=== PATIENT | male | born 1970 | race Caucasian/White ===

== ENCOUNTER 2016-09-28 09:16 | Outpatient (CLI) | payer MEDICAID | END 2016-09-28 09:17 | disposition short-term general hospital (02) | LOC: EMS 09:16 | PROVIDERS: ATTEND Surgery | DX: R07.9 Chest pain, unspecified (principal) | CPT/HCPCS: A0425; A0427 ==

== ENCOUNTER 2016-10-19 09:28 | Outpatient (CLI) | payer MEDICAID | END 2016-10-19 09:29 | disposition critical access hospital (66) | LOC: EMS 09:28 | PROVIDERS: ATTEND Surgery | DX: R11.0 Nausea (principal); R42 Dizziness and giddiness | CPT/HCPCS: A0425; A0427 ==

== ENCOUNTER 2016-10-19 09:47 | Observation (INO) | payer MEDICAID ==
[2016-10-19] MEDS ORDERED: SODIUM CHLORIDE 0.9% 500 ML IV ONE ×2 (10:10→11:08)
[2016-10-19] MEDS ORDERED: HYDROmorphone 1 MG/ML SYRINGE IVP STA ×3 (10:10→13:22)
[2016-10-19] MEDS ORDERED: HYDROmorphone 1 MG/ML SYRINGE ONE ×2 (10:21→11:15)
[2016-10-19 10:43] LABS: BASOPHILS # (AUTO) 0.1 10^3/uL (0.0-0.1); BASOPHILS % (AUTO) 1.1 %; HCT - HEMATOCRIT 38.6 % (42.0-52.0); LYMPHOCYTES # (AUTO) 1.4 10^3/uL (1.5-3.5); LYMPHOCYTES % (AUTO) 24.2 %; MEAN CORPUSCULAR HEMOGLOBIN 32.3 pg (27.0-31.0); MEAN CORPUSCULAR HGB CONC 33.6 g/dL (32.0-36.0); MEAN CORPUSCULAR VOLUME 96.1 fL (80.0-94.0); MEAN PLATELET VOLUME 8.1 fL (7.4-11.4); MONOCYTES # (AUTO) 0.3 10^3/uL (0.0-1.0); MONOCYTES % (AUTO) 5.9 %; NEUTROPHILS # (AUTO) 3.9 10^3/uL (1.5-6.6); NEUTROPHILS % (AUTO) 68.8 %; NUCLEATED RED BLOOD CELLS AUTO 0.1 /100WBC; RED BLOOD COUNT 4.02 10^6/uL (4.70-6.10); RED CELL DISTRIBUTION WIDTH 15.3 % (12.0-15.0); UNCORRECTED WHITE BLOOD COUNT 5.7 x10^3/uL; WHITE BLOOD COUNT 5.7 x10^3/uL (4.8-10.8)
[2016-10-19 10:53] LABS: ALBUMIN/GLOBULIN RATIO 1.7 (1.0-2.2); BILIRUBIN,TOTAL 0.6 mg/dL (0.2-1.0); BUN - BLOOD UREA NITROGEN 10 mg/dL (6-20); CALCIUM 8.8 mg/dL (8.5-10.3); CARBON DIOXIDE - CO2 25 mmol/L (21-32); CHLORIDE 105 mmol/L (101-111); GFR - MDRD 82 (>89); GLUCOSE 125 mg/dL (70-100); LIPASE 38 U/L (22-51); MAGNESIUM 1.9 mg/dL (1.7-2.8); POTASSIUM 4.1 mmol/L (3.5-5.0); SODIUM 139 mmol/L (135-145); TOTAL PROTEIN 6.4 g/dL (6.7-8.2)
[2016-10-19 11:28] LABS: RAPID STREP SCREEN REAGENT QC YELLOW (YELLOW)
--- NOTE | 2016-10-19 11:33 | XRAY Preliminary Report ---
Exam: XR Chest 1 View IMPRESSION: Normal single view chest. [facility] SITE ID: [id number]
--- NOTE | 2016-10-19 11:35 | XRAY Report ---
EXAM: CHEST RADIOGRAPHY EXAM DATE: 10/19/2016 10:59 AM. CLINICAL HISTORY: Cough, weakness. COMPARISON: Chest radiography from 01/06/2015. TECHNIQUE: 1 view. FINDINGS: Lungs/Pleura: No focal opacities evident. No pleural effusion. No pneumothorax. Mediastinum: Within exam limitations, cardiomediastinal contour is normal. Other: None. IMPRESSION: Normal single view chest. [facility] Referring Provider Line: [phone] SITE ID: [id number]
--- NOTE | 2016-10-19 11:48 | ED Physician Documentation ---
PD HPI SYNCOPE - Stated complaint Stated Complaint: BODY ACHES - Chief complaint Chief Complaint: Cardiac - History obtained from History obtained from: Patient, EMS - History of Present Illness Timing - onset: Today (he awoke with feeling of general weakness, nausea, body aches, and has increased back pain over baseline (but ran out of his pain meds couple of days ago that he gets every 2 weeks - 30 tablets). Denies fevers. Has had sore throat for a week. Mild cough. 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 Christian, cardiology in [place]. Patient says his BP is typically 120 systolic. No recent change in med.) Recently seen: Not recently seen Review of Systems Constitutional: reports: Chills, Myalgias, Fatigue. denies: Fever Nose: denies: Rhinorrhea / runny nose, Congestion Throat: reports: Sore throat (for a week) Cardiac: denies: Chest pain / pressure, Palpitations, Pedal edema, Calf pain Respiratory: reports: Cough (mild) GI: reports: Nausea. denies: Abdominal Pain, Vomiting, Diarrhea : denies: Dysuria, Frequency Skin: denies: Rash, Lesions Neurologic: reports: Generalized weakness. denies: Focal weakness, Numbness, Near syncope PD PAST MEDICAL HISTORY - Past Medical History Cardiovascular: Hypertension, High cholesterol Respiratory: Asthma, Shortness of breath Neuro: Headache/migraine Endocrine/Autoimmune: None GI: None, Crohn's disease, Other : None HEENT: None, Other Psych: Depression, Anxiety, Post traumatic stress disorder, Other Musculoskeletal: Osteoarthritis, Fibromyalgia, Fatigue, Chronic back pain Derm: Eczema - Past Surgical History Past Surgical History: Yes General: Appendectomy HEENT: Cataracts - Present Medications Home Medications: Ambulatory Orders Medication Instructions Recorded Confirmed Omeprazole 40 mg PO DAILY 03/01/14 01/06/15 Venlafaxine ER [Effexor ER] 300 mg PO BID 03/01/14 01/06/15 Pregabalin [Lyrica] 225 mg PO BID 05/14/14 01/06/15 Rizatriptan Benzoate [Maxalt Cremator] 1 tab PO DAILY PRN 06/10/14 01/06/15 Sulfasalazine 1,500 mg PO TIDWM 06/10/14 01/06/15 Albuterol Sulfate [Proair Hfa] 2 puffs INH Q6HR 07/18/14 01/06/15 Propranolol [Inderal] 40 mg PO BID 10/01/14 01/06/15 Alprazolam [Xanax] 1 mg PO Q8HR #10 tablet 10/17/14 01/06/15 Orphenadrine Citrate 100 mg ORAL BID 10/25/14 01/06/15 Temazepam [Restoril] 30 mg ORAL QPM 10/25/14 01/06/15 Meclizine HCl 25 mg PO Q6H PRN #30 tablet 01/06/15 Oxycodone HCl/Acetaminophen 1 each PO TID #20 tablet 01/06/15 [Percocet 10-325 mg Tablet] Promethazine [Phenergan] 25 - 50 mg PO Q6H PRN #30 tab 01/06/15 - Allergies Allergies/Adverse Reactions: Allergies Allergy/AdvReac Type Severity Reaction Status Date / Time amitriptyline [Amitriptyline] Allergy Mild Anxiety Verified 12/19/14 23:22 codeine [Codeine] Allergy Mild Hives Verified 12/19/14 23:22 telmisartan [From Micardis] Allergy Mild Hives Verified 12/19/14 23:22 venom-honey bee Allergy Anaphylaxis Verified 12/19/14 23:22 [bee venom (honey bee)] lisinopril AdvReac Anxiety Verified 12/19/14 23:22 NSAIDS (Non-Steroidal AdvReac Emesis Verified 12/19/14 23:22 Anti-Inflamma tramadol HCl * [From Ultram] AdvReac Unknown Verified 12/19/14 23:22 Ghost peppers Allergy Anaphylaxis Uncoded 12/19/14 23:22 squash Allergy Anaphylaxis Uncoded 12/19/14 23:22 [email or web address] Allergy Anaphylaxis Uncoded 12/19/14 23:22 - Social History Does the pt smoke?: Yes Smoking Status: Smoker current status unk Does the pt drink ETOH?: Yes Does the pt have substance abuse?: No - Family History Family history: reports: Non contributory - Immunizations Immunizations are current?: Yes - POLST Patient has POLST: No PD ED PE NORMAL - Vitals Vital signs reviewed: Yes - General General: Alert and oriented X 3, No acute distress, Well developed/nourished - HEENT HEENT: Moist mucous membranes. No: Pharynx benign (mild redness posteriorly without exudate. ) - Neck Neck: Supple, no meningeal sign, No adenopathy - Cardiac Cardiac: RRR, No murmur - Respiratory Respiratory: Clear bilaterally - Abdomen Abdomen: Soft, Non tender, Other (obese) - Male Male : Deferred - Rectal Rectal: Deferred - Back Back: No CVA TTP - Derm Derm: Warm and dry. No: Normal color (slightly pale) - Extremities Extremities: No tenderness to palpate, Normal ROM s pain, No edema, No calf tenderness / cord - Neuro Neuro: Alert and oriented X 3, No motor deficit, Normal speech - Psych Psych: Normal mood, Normal affect Results - Vitals Vitals: Vital Signs - 24 hr 10/19/16 10/19/16 10/19/16 09:49 10:30 10:42 Temperature 36.4 C L Heart Rate 70 65 64 Respiratory 20 14 14 Rate Blood Pressure 90/62 72/43 L 79/47 L O2 Saturation 92 93 91 L 10/19/16 10/19/16 10/19/16 10:47 11:22 12:40 Temperature Heart Rate 62 59 L 57 L Respiratory 14 14 14 Rate Blood Pressure 80/48 L 88/49 L 99/72 O2 Saturation 95 95 95 10/19/16 10/19/16 13:07 13:38 Temperature Heart Rate 55 L 56 L Respiratory 14 10 L Rate Blood Pressure 74/46 L 92/45 L O2 Saturation 92 91 L Oxygen O2 Source Room air - Labs Labs: Laboratory Tests 10/19/16 10/19/16 10/19/16 10:29 10:29 10:29 WBC 5.7 RBC 4.02 L Hgb 13.0 L Hct 38.6 L MCV 96.1 H MCH 32.3 H MCHC 33.6 RDW 15.3 H Plt Count 176 MPV 8.1 Neut # 3.9 Lymph # 1.4 L [place] # 0.3 Eos # 0.0 Baso # 0.1 Absolute Nucleated RBC 0.00 Nucleated RBCs 0.1 ESR 7 Sodium 139 Potassium 4.1 Chloride 105 Carbon Dioxide 25 Anion Gap 9.0 BUN 10 Creatinine 1.0 Estimated GFR (MDRD) 82 L Glucose 125 H Lactic Acid Calcium 8.8 Magnesium 1.9 Total Bilirubin 0.6 AST 11 ALT < 10 L Alkaline Phosphatase 56 Troponin I B-Natriuretic Peptide Total Protein 6.4 L Albumin 4.0 Globulin 2.4 Albumin/Globulin Ratio 1.7 Lipase 38 Urine Color Urine Clarity Urine pH Ur Specific [place] Urine Protein Urine Glucose (UA) Urine Ketones Urine Occult Blood Urine Nitrite Urine Bilirubin Urine Urobilinogen Ur Leukocyte Esterase Ur Microscopic Review Urine Culture Comments Ethyl Alcohol < 5.0 Group A Strep Rapid 10/19/16 10/19/16 10/19/16 10:29 10:29 10:29 WBC RBC Hgb Hct MCV MCH MCHC RDW Plt Count MPV Neut # Lymph # [place] # Eos # Baso # Absolute Nucleated RBC Nucleated RBCs ESR Sodium Potassium Chloride Carbon Dioxide Anion Gap BUN Creatinine Estimated GFR (MDRD) Glucose Lactic Acid 1.9 Calcium Magnesium Total Bilirubin AST ALT Alkaline Phosphatase Troponin I < 0.04 B-Natriuretic Peptide 148 H Total Protein Albumin Globulin Albumin/Globulin Ratio Lipase Urine Color Urine Clarity Urine pH Ur Specific [place] Urine Protein Urine Glucose (UA) Urine Ketones Urine Occult Blood Urine Nitrite Urine Bilirubin Urine Urobilinogen Ur Leukocyte Esterase Ur Microscopic Review Urine Culture Comments Ethyl Alcohol Group A Strep Rapid 10/19/16 10/19/16 10/19/16 11:00 11:06 13:30 WBC RBC Hgb Hct MCV MCH MCHC RDW Plt Count MPV Neut # Lymph # [place] # Eos # Baso # Absolute Nucleated RBC Nucleated RBCs ESR Sodium Potassium Chloride Carbon Dioxide Anion Gap BUN Creatinine Estimated GFR (MDRD) Glucose Lactic Acid Calcium Magnesium Total Bilirubin AST ALT Alkaline Phosphatase Troponin I < 0.04 B-Natriuretic Peptide Total Protein Albumin Globulin Albumin/Globulin Ratio Lipase Urine Color YELLOW Urine Clarity CLEAR Urine pH 6.0 Ur Specific [place] 1.015 Urine Protein NEGATIVE Urine Glucose (UA) NEGATIVE Urine Ketones NEGATIVE Urine Occult Blood NEGATIVE Urine Nitrite NEGATIVE Urine Bilirubin NEGATIVE Urine Urobilinogen 0.2 (NORMAL) Ur Leukocyte Esterase NEGATIVE Ur Microscopic Review NOT INDICATED Urine Culture Comments NOT INDICATED Ethyl Alcohol Group A Strep Rapid Negative - Rads (name of study) chest Radiology: Prelim report reviewed, EMP read contemporaneously (no acute process ; no signs of failure) ECHO limited Radiology: Prelim report reviewed (hypertrophic cardiomyopathy, with hyperdynamic contraction and EF 75%. No effusion. No focal hypokinesis) PD MEDICAL DECISION MAKING - ED course Complexity details: re-evaluated patient (Has his chronic back pain and some myalgias for which he asked for some pain meds. BP is low at 90 systolic. He has symptoms c/w viral illness perhaps. BP staying about same with fluid bolus, which was gentle at first, due to concern of CHf, but giving more fluids once clearer was not in heart failure at this point. ), considered differential (He is not feeling well and has low BP. Will eval for sepsis, lytes, OK/ cardiogenic. He denies change in med dose re: BP meds. Given history of cardiomyopathy, consider worsening of heart function related to illness/viral/ etc. Can get ECHO to assess current function. ), d/w patient Departure - Departure Disposition: ED Place in Observation Clinical Impression: Generalized weakness, Flu-like symptoms Hypotension Qualifiers: Hypotension type: unspecified hypotension type Qualified Code(s): I95.9 - Hypotension, unspecified Chronic back pain Qualifiers: Back pain location: low back pain Back pain laterality: bilateral Sciatica presence: without sciatica Qualified Code(s): M54.5 - Low back pain Condition: Stable Record reviewed to determine appropriate education?: Yes
[2016-10-19 11:59] LABS: BILIRUBIN,URINE NEGATIVE (NEGATIVE); UA CHARGE (STRIP ONLY) YES; UR CULTURE IF IND NOT INDICATED
[2016-10-19] MEDS ORDERED: SODIUM CHLORIDE 0.9% 1,000 ML IV ONE ×2 (12:55→13:53)
[2016-10-19] MEDS ORDERED: TEMAZEPAM 15 MG CAPSULE PO PRN (16:56)
[2016-10-19] MEDS ORDERED: ACETAMINOPHEN 325 MG TABLET PO PRN (16:56)
[2016-10-19] MEDS ORDERED: SODIUM CHLORIDE FLUSH 0.9% 10 ML SYRINGE IVP PRN (16:56)
--- NOTE | 2016-10-19 17:24 | HISTORY & PHYSICAL EXAMINATION ---
Chief Complaint - Chief Complaint Chief Complaint: body aches History of Present Illness - Admitted From Admitted From:: emergence department - History Obtained From History obtained from: patient - History of Present Illness HPI Comment/Other: This is a 45-year-old male with significant past medical history of hypertrophic cardiomyopathy, hyperlipidemia, HTN, Asthma, morbidly obese, Crohn' s disease, depression, anxiety, post traumatic stress disorder, osteoarthritis, fibromyalgia, chronic back pain, bipolar disorder, who present emergence room for evaluation of body aches, flu-like symptoms and generalized weakness. Patient is a poor historian. He has vague complaints on various directions. He report he has been constipated for "long time" but he report he has a bowel on today morning. Patient report he has been on sleep for only several hours in the last week but he state he sleep 7 hours on yesterday. Patient report he had body aches "very badly," electrical-shock symptoms happened several times per day on whole body. Patient report he feels nausea but no vomiting, and feels weakness and dizziness as well. Patient report he has mild cramp at his lower abdominal quadrant and he also report he has history of IBS. Patient denies fever, chill, chest pain, shortness of breathing, headache ache, vomiting, diarrhea. No dysuria or hematuria. Patient's vital sign in ER initial BP72/43, HR65, RR14, SO93% on room air. After 3 liter NS IVF, patient's vital signs is BP 106/59, HR 57, RR 14, SO2 96% on room air, temperature 36.6. Lab test in ER is unremarkable, WBC 5.7, HGB 13, Plt 176, troponin negative in serial two test, [id number], UA negative UTI, Group A Strep test negative. CXR is unremarkable. ECHO done at ER reveals progressive increase in the wall thickness towards the apex. This is consistent with asymmetric apical hypertrophy. the remaining heart wall are moderately thickened. LV systolic function is hyperdynamic with an ejuction fraction of > 70%. Patient is admitted in observation unit for dehydration and hypotension. Review of Systems - Constitutional Constitutional: reports: Fatigue, Malaise, Weakness. denies: Fever, Chills, Poor appetite, Diaphoresis, Night sweats, Weight gain, Weight loss - Eyes Eyes: denies: Pain, Irritation, Amaurosis, Blurred vision, Spots in vision, Field loss, Vision loss, Dipolpia - Ears, Nose & Throat Ears, Nose & Throat: reports: Sore throat. denies: Ear pain, Hearing loss, Hearing aids, Tinnitus, Vertigo, Nasal pain, Nasal discharge, Nosebleeds, Hoarseness, Bleeding gums - Cardiovascular Cariovascular: denies: Irregular heart rate, Palpitations, Chest pain, Edema, Lightheadedness, Syncope, Exertional dyspnea, Orthopnea - Respiratory Respiratory: denies: Cough, Sputum production, Wheezing, Snoring, Hemoptysis, Orthopnea, SOB at rest, SOB with exertion, Apnea, Pleuritic pain - Gastrointestinal Gastrointestinal: reports: Change in bowel habits, Nausea, Bloating. denies: Abdominal pain, Abdominal distention, Constipation, Diarrhea, Rectal bleeding, Black stools, Bloody stools, Vomiting, Jude blood emesis, Coffee grounds emesis - Genitourinary Genitourinary: denies: Dysuria, Frequency, Urgency, Hematuria, Incontinence, Flank pain - Musculoskeletal Musculoskeletal: reports: Back pain, Muscle aches, Muscle weakness, Joint pain. denies: Stiffness, Limited range of motion, Gout, Joint swelling - Integumentary Integumentary: denies: Rash, Pruritis, Dryness, Pigment changes - Neurological Neurological: reports: General weakness, Dizziness. denies: Focal weakness, Headache, Numbness, Abnormal gait, Seizures, Incoordination, Slurred speech - Psychiatric Psychiatric: reports: Depression, Anxiety. denies: Suicidal, Delusions, Hallucinations, Homicidal - Endocrine Endocrine: denies: Polyuria, Polydypsia, Polyphagia - Hematologic/Lymphatic Hematologic/Lymphatic: denies: Bruising, Petechiae, Lymphadenopathy History - Past Medical History Cardiovascular: reports: Hypertension, High cholesterol Respiratory: reports: Asthma, Shortness of breath Neuro: reports: Headache/migraine Endocrine/Autoimmune: reports: None GI: reports: None, Crohn's disease, Other : reports: None HEENT: reports: None, Other Psych: reports: Depression, Anxiety, Post traumatic stress disorder, Other Musculoskeletal: reports: Osteoarthritis, Fibromyalgia, Fatigue, Chronic back pain Derm: reports: Eczema MRSA Hx?: No - Past Surgical History General: reports: Appendectomy HEENT: reports: Cataracts - POLST Patient has POLST: No Meds/Allgy - Home Medications Home Medications: Ambulatory Orders Medication Instructions Recorded Confirmed Omeprazole 40 mg PO DAILY 03/01/14 01/06/15 Venlafaxine ER [Effexor ER] 300 mg PO BID 03/01/14 01/06/15 Pregabalin [Lyrica] 225 mg PO BID 05/14/14 01/06/15 Rizatriptan Benzoate [Maxalt Woodyard Operator] 1 tab PO DAILY PRN 06/10/14 01/06/15 Sulfasalazine 1,500 mg PO TIDWM 06/10/14 01/06/15 Albuterol Sulfate [Proair Hfa] 2 puffs INH Q6HR 07/18/14 01/06/15 Propranolol [Inderal] 40 mg PO BID 10/01/14 01/06/15 Alprazolam [Xanax] 1 mg PO Q8HR #10 tablet 10/17/14 01/06/15 Orphenadrine Citrate 100 mg ORAL BID 10/25/14 01/06/15 Temazepam [Restoril] 30 mg ORAL QPM 10/25/14 01/06/15 Meclizine HCl 25 mg PO Q6H PRN #30 tablet 01/06/15 Oxycodone HCl/Acetaminophen 1 each PO TID #20 tablet 01/06/15 [Percocet 10-325 mg Tablet] Promethazine [Phenergan] 25 - 50 mg PO Q6H PRN #30 tab 01/06/15 - Allergies Allergies/Adverse Reactions: Allergies Allergy/AdvReac Type Severity Reaction Status Date / Time amitriptyline [Amitriptyline] Allergy Mild Anxiety Verified 12/19/14 23:22 codeine [Codeine] Allergy Mild Hives Verified 12/19/14 23:22 telmisartan [From Micardis] Allergy Mild Hives Verified 12/19/14 23:22 venom-honey bee Allergy Anaphylaxis Verified 12/19/14 23:22 [bee venom (honey bee)] lisinopril AdvReac Anxiety Verified 12/19/14 23:22 NSAIDS (Non-Steroidal AdvReac Emesis Verified 12/19/14 23:22 Anti-Inflamma tramadol HCl * [From Ultram] AdvReac Unknown Verified 12/19/14 23:22 Ghost peppers Allergy Anaphylaxis Uncoded 10/17/15 23:22 squash Allergy Anaphylaxis Uncoded 12/19/14 23:22 [email or web address] Allergy Anaphylaxis Uncoded 12/19/14 23:22 Exam - Vital Signs Reviewed Vital Signs: Yes - Physical Exam General Appearance: positive: No acute distress, Alert. negative: Lethargic Eyes Bilateral: positive: Normal inspection, PERRL. negative: No lid inflammation, Conjunctivae nml ENT: positive: ENT inspection nml, Pharynx nml. negative: Purulent nasal drainage, Pharyngeal erythema, Oral lesions Neck: positive: Nml inspection, Thyroid nml, No JVD, Trachea midline. negative : Lymphadenopathy (R), Lymphadenopathy (L), Stiff neck Respiratory: positive: Chest non-tender, No respiratory distress, Breath sounds nml. negative: Wheezes, Rales, Rhonchi Cardiovascular: positive: Regular rate & rhythm, No murmur, No gallop. negative : Tachycardia, Bradycardia, Systolic murmur, Diastolic murmur Peripheral Pulses: positive: 2+ Abdomen: positive: Non-tender, No organomegaly, Nml bowel sounds, No distention. negative: Tenderness, Guarding, Rebound Back: positive: Nml inspection. negative: CVA tenderness (R), CVA tenderness (L ) Skin: positive: Color nml, No rash, Warm, Dry. negative: Diaphoresis, Pallor, Decubitus Extremities: positive: Non-tender, Full ROM, Nml appearance, No pedal edema. negative: Calf tenderness, Xenia's sign/cords Neurologic/Psychiatric: positive: Oriented x3, Motor nml, Sensation nml, Mood/ affect nml. negative: Sensory loss, Facial droop, Slurred/abnml speech, Depressed mood/affect Conclusion/Plan - Problem List (1) Hypotension Conclusion/Plan: pt with chronic and progressive increase of hypertrophic cardiaomyopathy with hyperdynamic EF, BNP 148, develop diastolic heart failure, and may have dehydration. pt already has 3 liter NS, will keep mild to moderate hydration on tele, vital sign check per protocol on observation medical floor Qualifiers: Hypotension type: unspecified hypotension type Qualified Code(s): I95.9 - Hypotension, unspecified (2) Dehydration Conclusion/Plan: mild to moderate hydration to pt, closely monitor to void over loaded with fluid CMP, CBC test daily vital, and tele monitor closely (3) Flu-like symptoms Conclusion/Plan: Strep A test is negative, pt may have viral infection. IVF, support (4) Generalized weakness Conclusion/Plan: consult with PT/OT, support, fall precaution (5) Chronic back pain Conclusion/Plan: pain control, also monitor pt's blood pressure. Qualifiers: Back pain location: low back pain Back pain laterality: bilateral Sciatica presence: without sciatica Qualified Code(s): M54.5 - Low back pain; G89.29 - Other chronic pain (6) Body aches Conclusion/Plan: may viral infection, support. also will do UDS to screen drugs (7) Anxiety Conclusion/Plan: it appear stable, chronic condition, reconciliation of home meds (8) Depressive disorder Conclusion/Plan: It appear stable, pt denies Suicide and homicidal ideation. reconciliation of home medication - Lab Results Fish Bones: 10/19/16 10:29 10/19/16 10:29 Issues/Core Measures - Anticipated LOS Anticipated Stay Length: Less than 2 midnights (on observation floor) - Issues Hospital Issues and Management Plan: DVT prophylaxis with Lovenox - DVT/VTE - Prophylaxis VTE/DVT Device ordered at admit?: Yes
[2016-10-19] MEDS: HYDROmorphone 1 MG/ML SYRINGE IVP PRN ×2 (17:51→22:09)
[2016-10-19] MEDS: SODIUM CHLORIDE 0.9% 1,000 ML IV SCH (17:52)
[2016-10-19] MEDS: SODIUM CHLORIDE FLUSH 0.9% 10 ML SYRINGE IVP SCH (17:52)
[2016-10-19] MEDS ORDERED: NON FORMULARY MED (Omeprazole [Omeprazole] 40 MG) PO SCH (21:15)
[2016-10-19] MEDS: ALPRAZolam 0.25 MG TABLET PO SCH (22:08)
[2016-10-19] MEDS: PREGABALIN 100 MG CAPSULE PO SCH (22:08)
[2016-10-19] MEDS: DIVALPROEX DR 250 MG TABLET PO SCH (22:09)
[2016-10-19] MEDS: sulfaSALAzine 500 MG TABLET PO SCH (22:09)
[2016-10-20] MEDS: HYDROmorphone 1 MG/ML SYRINGE IVP PRN ×5 (01:09→14:12)
[2016-10-20] MEDS: ONDANSETRON 4 MG/2 ML VIAL IVP PRN ×3 (01:14→14:12)
[2016-10-20] MEDS: SODIUM CHLORIDE 0.9% 1,000 ML IV SCH (04:14)
[2016-10-20] MEDS: SODIUM CHLORIDE FLUSH 0.9% 10 ML SYRINGE IVP SCH ×2 (04:36→13:12)
[2016-10-20] MEDS ORDERED: PANTOPRAZOLE 40 MG TABLET PO SCH (07:00)
[2016-10-20] MEDS ORDERED: NON FORMULARY MED (Albuterol Sulfate [Proair Hfa Inhaler] 2 PUFFS) INH PRN (08:07)
[2016-10-20] MEDS ORDERED: hydrALAZINE INJ 20 MG/ML VIAL IVP PRN (08:09)
[2016-10-20] MEDS: sulfaSALAzine 500 MG TABLET PO SCH (08:25)
[2016-10-20] MEDS: ALPRAZolam 0.25 MG TABLET PO SCH (08:26)
[2016-10-20] MEDS: PREGABALIN 100 MG CAPSULE PO SCH (08:26)
[2016-10-20] MEDS: DIVALPROEX DR 250 MG TABLET PO SCH (08:32)
[2016-10-20] MEDS ORDERED: ALBUTEROL NEB 2.5 MG/3 ML INH PRN ×2 (08:43→13:42)
[2016-10-20] MEDS ORDERED: POLYETHYLENE GLYCOL 3350 17 GM PACKET PO SCH (09:00)
[2016-10-20] MEDS ORDERED: ENOXAPARIN 40 MG/0.4 ML SYRINGE SUBQ SCH (09:00)
[2016-10-20] MEDS ORDERED: FAMOTIDINE 20 MG TABLET PO SCH (09:00)
[2016-10-20 09:47] LABS: BASOPHILS # (AUTO) 0.1 10^3/uL (0.0-0.1); BASOPHILS % (AUTO) 0.9 %; HCT - HEMATOCRIT 40.9 % (42.0-52.0); HGB - HEMOGLOBIN 13.9 g/dL (14.0-18.0); LYMPHOCYTES # (AUTO) 0.9 10^3/uL (1.5-3.5); LYMPHOCYTES % (AUTO) 13.3 %; MEAN CORPUSCULAR HEMOGLOBIN 32.6 pg (27.0-31.0); MEAN CORPUSCULAR HGB CONC 33.9 g/dL (32.0-36.0); MEAN CORPUSCULAR VOLUME 96.1 fL (80.0-94.0); MEAN PLATELET VOLUME 7.8 fL (7.4-11.4); MONOCYTES # (AUTO) 0.3 10^3/uL (0.0-1.0); MONOCYTES % (AUTO) 4.9 %; NEUTROPHILS # (AUTO) 5.5 10^3/uL (1.5-6.6); NEUTROPHILS % (AUTO) 80.9 %; RED BLOOD COUNT 4.25 10^6/uL (4.70-6.10); RED CELL DISTRIBUTION WIDTH 15.1 % (12.0-15.0); UNCORRECTED WHITE BLOOD COUNT 6.8 x10^3/uL; WHITE BLOOD COUNT 6.8 x10^3/uL (4.8-10.8)
[2016-10-20 09:59] LABS: ALBUMIN/GLOBULIN RATIO 1.9 (1.0-2.2); BILIRUBIN,TOTAL 0.6 mg/dL (0.2-1.0); BUN - BLOOD UREA NITROGEN 10 mg/dL (6-20); CALCIUM 8.8 mg/dL (8.5-10.3); CARBON DIOXIDE - CO2 26 mmol/L (21-32); CHLORIDE 106 mmol/L (101-111); CREATININE 0.9 mg/dL (0.6-1.2); GFR - MDRD 92 (>89); GLUCOSE 104 mg/dL (70-100); POTASSIUM 4.2 mmol/L (3.5-5.0); SODIUM 140 mmol/L (135-145); TOTAL PROTEIN 6.7 g/dL (6.7-8.2)
[2016-10-20] MEDS ORDERED: oxyCOD/ACETAMIN 5 MG/325 MG TABLET PO PRN (11:04)
--- NOTE | 2016-10-20 11:11 | Discharge Plan ---
Discharge Plan Disposition: 01 Home, Self Care Condition: Stable Diet: Cardiac Activity Restrictions: Activity as Tolerated Shower Restrictions: No Weight Bearing: Full Weight Instruction Topics: Hypertension Control, Hypertension Dc, Hypotension Dc Additional Instructions or Follow Up instructions: may see PCP in one week, and follow up rn circulating as outpatient in two weeks Follow-Up Care: [facility] - Cardiac No Smoking: If you smoke, Please STOP! Call for help. Follow-up with: Lakshmi Talavera PA-C [Credentialed Staff Provider] -
[2016-10-20] MEDS ORDERED: oxyCODONE 5 MG TABLET PO PRN (11:14)
[2016-10-20] MEDS: PROCHLORPERAZINE 10 MG/2 ML VIAL IVP PRN ×2 (11:19→15:49)
[2016-10-20] MEDS ORDERED: cloNIDine 0.1 MG TABLET PO PRN (14:17)
--- NOTE | 2016-10-20 15:06 | DISCHARGE SUMMARY ---
Discharge Summary Admit Date: 10/19/16 Discharge Date: 10/20/16 Discharging Provider: BEJARANO Primary Care Provider: Lakshmi Alexander Code Status: Attempt Resuscitation Condition at Discharge: Stable Discharge Disposition: 01 Home, Self Care - DIAGNOSES Admission Diagnoses: (1) Hypotension (2) Dehydration (3) Body aches (4) Flu-like symptoms (5) Chronic back pain Discharge Diagnoses with Status of Each Condition: (1) Hypotension resolved (2) Dehydration resolved (3) Body aches resolved (4) Flu-like symptoms resolved (5) Chronic back pain out-patient management (6) hypertrophic cardiomyopathy discuss with pt the chronic condition, pt state he want to do out patient follow up with his operations manager (7) normotension to hypertension I Pt was admitted for hypotension and dehydration in observation unit. Pt is advised to follow up his PCP closely. - HPI History of Present Illness: please refer my HPI on 10/19/16 as the following This is a 45-year-old male with significant past medical history of hypertrophic cardiomyopathy, hyperlipidemia, HTN, Asthma, morbidly obese, Crohn' s disease, depression, anxiety, post traumatic stress disorder, osteoarthritis, fibromyalgia, chronic back pain, bipolar disorder, who present emergence room for evaluation of body aches, flu-like symptoms and generalized weakness. Patient is a poor historian. He has vague complaints on various directions. He report he has been constipated for "long time" but he report he has a bowel on today morning. Patient report he has been on sleep for only several hours in the last week but he state he sleep 7 hours on yesterday. Patient report he had body aches "very badly," electrical-shock symptoms happened several times per day on whole body. Patient report he feels nausea but no vomiting, and feels weakness and dizziness as well. Patient report he has mild cramp at his lower abdominal quadrant and he also report he has history of IBS. Patient denies fever, chill, chest pain, shortness of breathing, headache ache, vomiting, diarrhea. No dysuria or hematuria. Patient's vital sign in ER initial BP72/43, HR65, RR14, SO93% on room air. After 3 liter NS IVF, patient's vital signs is BP 106/59, HR 57, RR 14, SO2 96% on room air, temperature 36.6. Lab test in ER is unremarkable, WBC 5.7, HGB 13, Plt 176, troponin negative in serial two test, [id number], UA negative UTI, Group A Strep test negative. CXR is unremarkable. ECHO done at ER reveals progressive increase in the wall thickness towards the apex. This is consistent with asymmetric apical hypertrophy. the remaining heart wall are moderately thickened. LV systolic function is hyperdynamic with an ejuction fraction of > 70%. Patient is admitted in observation unit for dehydration and hypotension. - CONSULTS | PROCEDURES Procedures: ECHO reveals pt has hypertrophical cardiomyopathy, hyperdynamic EF 75% - HOSPITAL COURSE Hospital Course: After pt was admitted, continue to IVF for hydration. pt's vital then is stable. pt continue to ask pain medication, although pt has dilaudid. pt's BP is various from normotension to mild to moderate hypertension. Pt is admitted for hypotension. - ALLERGIES Allergies/Adverse Reactions: Allergies Allergy/AdvReac Type Severity Reaction Status Date / Time amitriptyline [Amitriptyline] Allergy Mild Anxiety Verified 12/19/14 23:22 codeine [Codeine] Allergy Mild Hives Verified 12/19/14 23:22 telmisartan [From Micardis] Allergy Mild Hives Verified 12/19/14 23:22 venom-honey bee Allergy Anaphylaxis Verified 12/19/14 23:22 [bee venom (honey bee)] lisinopril AdvReac Anxiety Verified 12/19/14 23:22 NSAIDS (Non-Steroidal AdvReac Emesis Verified 12/19/14 23:22 Anti-Inflamma tramadol HCl * [From Ultram] AdvReac Unknown Verified 12/19/14 23:22 Ghost peppers Allergy Anaphylaxis Uncoded 12/19/14 23:22 squash Allergy Anaphylaxis Uncoded 12/19/14 23:22 zuccinni Allergy Anaphylaxis Uncoded 12/19/14 23:22 - MEDICATIONS Home Medications: Ambulatory Orders Medication Instructions Recorded Confirmed Omeprazole 40 mg PO BID 03/01/14 10/19/16 Pregabalin [Lyrica] 300 mg PO BID 05/14/14 10/19/16 Rizatriptan Benzoate [[employer] Dismantler] 1 tab PO PRN PRN 06/10/14 10/19/16 Sulfasalazine 1,500 mg PO BID 06/10/14 10/19/16 Albuterol Sulfate [Proair Hfa 2 puffs INH Q6HR PRN 07/18/14 10/19/16 Inhaler] Meclizine HCl 25 mg PO Q6H PRN #30 tablet 01/06/15 10/19/16 Promethazine [Phenergan] 25 - 50 mg PO Q6H PRN #30 tab 01/06/15 10/19/16 Alprazolam [Xanax] 1 mg PO BID 10/19/16 10/19/16 Divalproex Sodium [Depakote] 250 mg PO BID 10/19/16 10/19/16 Haloperidol [Haldol] 2 mg PO QPM 10/19/16 10/19/16 Oxycodone HCl/Acetaminophen 1 each PO BID PRN 10/19/16 10/20/16 [Percocet 10-325 mg Tablet] tiZANidine [Zanaflex] 8 mg PO TID 10/19/16 10/19/16 - PHYSICAL EXAM AT DISCHARGE General Appearance: positive: No acute distress, Alert. negative: Lethargic Eyes Bilateral: positive: Normal inspection, PERRL. negative: No lid inflammation, Conjunctivae nml ENT: positive: ENT inspection nml, Pharynx nml. negative: Purulent nasal drainage, Pharyngeal erythema Neck: positive: Nml inspection, Thyroid nml, Trachea midline. negative: Thyromegaly, Lymphadenopathy (R), Lymphadenopathy (L), Stiff neck, Swelling/ bruising Respiratory: positive: Chest non-tender, No respiratory distress, Breath sounds nml. negative: Wheezes, Rales, Rhonchi Cardiovascular: positive: Regular rate & rhythm, No murmur, No gallop. negative : Tachycardia, Bradycardia, Systolic murmur, Diastolic murmur Peripheral Pulses: positive: 2+ Abdomen: positive: Non-tender, Nml bowel sounds, No distention. negative: Tenderness, Guarding, Rebound Back: positive: Nml inspection. negative: CVA tenderness (R), CVA tenderness (L ) Skin: positive: Color nml, Warm, Dry. negative: Diaphoresis, Skin rash Extremities: positive: Non-tender, Full ROM. negative: Calf tenderness Neurologic/Psychiatric: positive: Oriented x3, Sensation nml, Mood/affect nml. negative: Sensory loss, Facial droop, Slurred/abnml speech, Depressed mood/ affect - LABS Result Diagrams: 10/20/16 09:40 10/20/16 09:40 - FOLLOW UP Follow Up: pt is advised to see PCP in one week, and follow up operations manager for outpatient
[2016-10-20 15:24] VITALS: BP 158/97
[2016-10-20] MEDS ORDERED: PERFLUTREN LIPID MICROSPHERES 1.65 MG/1.5 ML VIAL IVP ONE (15:54)
== END 2016-10-20 16:00 | disposition home or self-care (01) ==
LOC: EDUNIT# → ED 09:47 → OBS 16:56
PROVIDERS: ADMIT Nurse Practitioner Gerontology; ATTEND Nurse Practitioner Gerontology
DX: I95.9 Hypotension, unspecified (principal); E86.0 Dehydration; R53.1 Weakness; M54.5 Low back pain; G89.29 Other chronic pain; I42.2 Other hypertrophic cardiomyopathy; I11.9 Hypertensive heart disease without heart failure; I25.2 Old myocardial infarction; Z68.42 Body mass index [BMI] 45.0-49.9, adult; E78.5 Hyperlipidemia, unspecified; J45.909 Unspecified asthma, uncomplicated; E66.01 Morbid (severe) obesity due to excess calories; K50.90 Crohn's disease, unspecified, without complications; F41.9 Anxiety disorder, unspecified; F43.10 Post-traumatic stress disorder, unspecified; M79.7 Fibromyalgia; F31.9 Bipolar disorder, unspecified
CPT/HCPCS: 36415; 71010; 80053; 80306; 80320; 81003; 83605; 83690; 83735; 83880; 84484; 85025; 85651; 87070; 87430; 93005; 93306; 96361; 96374; 96375; 96376; 99285; A9270; G0378; J1170; Q9957; 81001; 87086

== ENCOUNTER 2016-10-26 18:44 | Outpatient (CLI) | payer MEDICAID | END 2016-10-26 18:45 | disposition short-term general hospital (02) | LOC: EMS 18:44 | PROVIDERS: ATTEND Surgery | DX: R55 Syncope and collapse (principal) | CPT/HCPCS: A0425; A0427 ==

== ENCOUNTER 2016-11-06 11:24 | Outpatient (CLI) | payer MEDICAID | END 2016-11-06 11:25 | disposition short-term general hospital (02) | LOC: EMS 11:24 | PROVIDERS: ATTEND Surgery | DX: R07.9 Chest pain, unspecified (principal); R51 Headache | CPT/HCPCS: A0425; A0427 ==

== ENCOUNTER 2016-11-11 10:41 | Outpatient (CLI) | payer MEDICAID | END 2016-11-11 10:42 | disposition short-term general hospital (02) | LOC: EMS 10:41 | PROVIDERS: ATTEND Surgery | DX: R07.9 Chest pain, unspecified (principal); R40.0 Somnolence | CPT/HCPCS: A0425; A0427 ==

== ENCOUNTER 2016-11-25 12:09 | Outpatient (CLI) | payer MEDICAID | END 2016-11-25 12:10 | disposition short-term general hospital (02) | LOC: EMS 12:09 | PROVIDERS: ATTEND Surgery | DX: R07.9 Chest pain, unspecified (principal) | CPT/HCPCS: A0425; A0427 ==

== ENCOUNTER 2016-11-30 17:32 | Outpatient (CLI) | payer MEDICAID | END 2016-11-30 17:33 | disposition critical access hospital (66) | LOC: EMS 17:32 | PROVIDERS: ATTEND Surgery | DX: S09.90XA Unspecified injury of head, initial encounter (principal); R42 Dizziness and giddiness; M54.9 Dorsalgia, unspecified; R07.9 Chest pain, unspecified; W22.8XXA Striking against or struck by other objects, initial encounter; W18.39XA Other fall on same level, initial encounter; Y92.032 Bedroom in apartment as the place of occurrence of the external cause | CPT/HCPCS: A0425; A0427 ==

== ENCOUNTER 2016-11-30 17:50 | Emergency (ER) | payer MEDICAID ==
[2016-11-30] MEDS ORDERED: HYDROmorphone 1 MG/ML CARPUJECT IVP STA (17:56)
[2016-11-30] MEDS ORDERED: HYDROmorphone 1 MG/ML CARPUJECT ONE (18:02)
--- NOTE | 2016-11-30 18:02 | ED Physician Documentation ---
PD HPI HEAD INJURY - Stated complaint Stated Complaint: FALL/HEAD INJURY - Chief complaint Chief Complaint: Trauma Hd/Nk - History obtained from History obtained from: Patient, EMS - History of Present Illness Mechanism of head injury: Fell (This is a 45-year-old gentleman with history of hypertrophic cardiomyopathy with chronic EKG changes with LVH and anterolateral deep T-wave inversion (this is from the [place] [facility] system note 11/06/16- no more recent note, but did have positive trop 11/11/16- per pt had another angio which was without intervention but still put on plavix), also hypertension morbid obesity, PTSD, and tobacco abuse. He was admitted to [facility] earlier this month for chest pain. Cardiology consult was concerned at that time about fibromyalgia versus drug-seeking behavior, and we do have concerns about drug- seeking behavior in the past year. Regardless today he got out of bed and he got dizzy, he hit his head on the windowsill and blacked out. He has a severe headache and neck pain, no other injuries. He is on Plavix.) Review of Systems Ten Systems: 10 systems reviewed and negative Constitutional: reports: Reviewed and negative Throat: reports: Reviewed and negative Cardiac: reports: Chest pain / pressure (He had a brief episode of chest pain prior to arrival, he is chest pain-free here. Prehospital EKG was reviewed and shows what appears to be chronic T-wave inversion anterolateral.) Psychiatric: denies: Depressed, Suicidal PD PAST MEDICAL HISTORY - Past Medical History Cardiovascular: Hypertension, High cholesterol Respiratory: Asthma, Shortness of breath Neuro: Headache/migraine Endocrine/Autoimmune: None GI: None, Crohn's disease, Other : None HEENT: None, Other Psych: Depression, Anxiety, Post traumatic stress disorder, Other Musculoskeletal: Osteoarthritis, Fibromyalgia, Fatigue, Chronic back pain Derm: Eczema - Past Surgical History Past Surgical History: Yes General: Appendectomy HEENT: Cataracts - Present Medications Home Medications: Ambulatory Orders Medication Instructions Recorded Confirmed Omeprazole 40 mg PO BID 03/01/14 10/19/16 Pregabalin [Lyrica] 300 mg PO BID 05/14/14 10/19/16 Rizatriptan Benzoate [[facility]] 1 tab PO PRN PRN 06/10/14 10/19/16 Sulfasalazine 1,500 mg PO BID 06/10/14 10/19/16 Albuterol Sulfate [Proair Hfa 2 puffs INH Q6HR PRN 07/18/14 10/19/16 Inhaler] Meclizine HCl 25 mg PO Q6H PRN #30 tablet 01/06/15 10/19/16 Promethazine [Phenergan] 25 - 50 mg PO Q6H PRN #30 tab 01/06/15 10/19/16 Alprazolam [Xanax] 1 mg PO BID 10/19/16 10/19/16 Divalproex Sodium [Depakote] 250 mg PO BID 10/19/16 10/19/16 Haloperidol [Haldol] 2 mg PO QPM 10/19/16 10/19/16 Oxycodone HCl/Acetaminophen 1 each PO BID PRN 10/19/16 10/20/16 [Percocet 10-325 mg Tablet] tiZANidine [Zanaflex] 8 mg PO TID 10/19/16 10/19/16 - Allergies Allergies/Adverse Reactions: Allergies Allergy/AdvReac Type Severity Reaction Status Date / Time amitriptyline [Amitriptyline] Allergy Mild Anxiety Verified 12/19/14 23:22 codeine [Codeine] Allergy Mild Hives Verified 12/19/14 23:22 telmisartan [From Micardis] Allergy Mild Hives Verified 12/19/14 23:22 venom-honey bee Allergy Anaphylaxis Verified 12/19/14 23:22 [bee venom (honey bee)] lisinopril AdvReac Anxiety Verified 12/19/14 23:22 NSAIDS (Non-Steroidal AdvReac Emesis Verified 12/19/14 23:22 Anti-Inflamma tramadol HCl * [From Ultram] AdvReac Unknown Verified 12/19/14 23:22 Ghost peppers Allergy Anaphylaxis Uncoded 12/19/14 23:22 squash Allergy Anaphylaxis Uncoded 12/19/14 23:22 [email or web address] Allergy Anaphylaxis Uncoded 12/19/14 23:22 - Social History Does the pt smoke?: Yes Smoking Status: Former smoker Does the pt drink ETOH?: Yes Does the pt have substance abuse?: No - Immunizations Immunizations are current?: Yes - POLST Patient has POLST: No PD ED PE NORMAL - Vitals Vital signs reviewed: Yes - General General: Alert and oriented X 3, No acute distress - HEENT HEENT: PERRL, EOMI, Other (In a c-collar and on a backboard which is maintained pending imaging given neck tenderness. He is rolled off the backboard during examination using logroll precautions.) - Neck Neck: Other (Modest upper neck tenderness) - Cardiac Cardiac: RRR, No murmur - Respiratory Respiratory: No respiratory distress, Clear bilaterally - Abdomen Abdomen: Normal bowel sounds, Soft, Non tender - Back Back: No CVA TTP, No spinal TTP - Derm Derm: Normal color, Warm and dry - Extremities Extremities: No edema, No calf tenderness / cord - Neuro Neuro: Alert and oriented X 3, steeping press operator 2-12 intact, No motor deficit, No sensory deficit, Normal speech - Psych Psych: Normal mood, Normal affect Results - Vitals Vitals: Vital Signs - 24 hr 11/30/16 11/30/16 11/30/16 17:50 18:50 19:13 Temperature 36.3 C L Heart Rate 71 68 64 Respiratory 17 15 18 Rate Blood Pressure 148/73 H 123/71 115/60 O2 Saturation 95 93 96 Oxygen O2 Source Room air - Labs Labs: Laboratory Tests 11/30/16 11/30/16 11/30/16 17:58 17:58 17:58 WBC 6.0 RBC 3.94 L Hgb 12.9 L Hct 38.3 L MCV 97.1 H MCH 32.8 H MCHC 33.8 RDW 18.0 H Plt Count 164 MPV 7.4 Neut # 4.0 Lymph # 1.5 [place] # 0.4 Eos # 0.0 Baso # 0.0 Absolute Nucleated RBC 0.00 Nucleated RBC % 0.0 PT 11.4 INR 1.0 Sodium 139 Potassium 4.4 Chloride 101 Carbon Dioxide 29 Anion Gap 9.0 BUN 13 Creatinine 1.1 Estimated GFR (MDRD) 73 L Glucose 95 Calcium 9.4 Total Bilirubin 0.5 AST 12 ALT < 10 L Alkaline Phosphatase 54 Troponin I Total Protein 6.2 L Albumin 4.3 Globulin 1.9 L Albumin/Globulin Ratio 2.3 H Lipase 36 Phenytoin 11/30/16 11/30/16 17:58 17:58 WBC RBC Hgb Hct MCV MCH MCHC RDW Plt Count MPV Neut # Lymph # [place] # Eos # Baso # Absolute Nucleated RBC Nucleated RBC % PT INR Sodium Potassium Chloride Carbon Dioxide Anion Gap BUN Creatinine Estimated GFR (MDRD) Glucose Calcium Total Bilirubin AST ALT Alkaline Phosphatase Troponin I < 0.04 Total Protein Albumin Globulin Albumin/Globulin Ratio Lipase Phenytoin < 2.5 - Rads (name of study) CT head and Cspine Radiology: EMP read contemporaneously (Degenerative disease in the cervical spine without acute fracture) PD MEDICAL DECISION MAKING - ED course ED course: 45-year-old gentleman presents after hitting his head with a concussion and brief loss of consciousness. Head and neck CTs were done and negative. Feeling better after the administration of Dilaudid and Toradol. Of note he said he was able to take Toradol, it was only oral NSAIDS that gave him issues. Departure - Departure Disposition: 01 Home, Self Care Clinical Impression: Concussion Qualifiers: Encounter type: initial encounter Loss of consciousness presence/duration: with LOC of 30 min or less Qualified Code(s): S06.0X1A - Concussion with loss of consciousness of 30 minutes or less, initial encounter Acute neck sprain Qualifiers: Encounter type: initial encounter Qualified Code(s): S13.9XXA - Sprain of joints and ligaments of unspecified parts of neck, initial encounter Condition: Good Record reviewed to determine appropriate education?: Yes Instructions: ED Sprain Strain Neck Comments: Call your doctor to arrange a follow-up appointment, make the next available appointment. In the interim, return anytime if worse or if new symptoms develop. Discharge Date/Time: 11/30/16 19:17
[2016-11-30] MEDS ORDERED: ONDANSETRON 4 MG/2 ML VIAL IVP STA (18:05)
[2016-11-30] MEDS ORDERED: ONDANSETRON 4 MG/2 ML VIAL ONE (18:08)
[2016-11-30 18:11] LABS: BASOPHILS % (AUTO) 0.7 %; EOSINOPHILS % (AUTO) 0.2 %; HCT - HEMATOCRIT 38.3 % (42.0-52.0); HGB - HEMOGLOBIN 12.9 g/dL (14.0-18.0); LYMPHOCYTES # (AUTO) 1.5 10^3/uL (1.5-3.5); LYMPHOCYTES % (AUTO) 25.3 %; MEAN CORPUSCULAR HEMOGLOBIN 32.8 pg (27.0-31.0); MEAN CORPUSCULAR HGB CONC 33.8 g/dL (32.0-36.0); MEAN CORPUSCULAR VOLUME 97.1 fL (80.0-94.0); MEAN PLATELET VOLUME 7.4 fL (7.4-11.4); MONOCYTES # (AUTO) 0.4 10^3/uL (0.0-1.0); MONOCYTES % (AUTO) 6.6 %; NEUTROPHILS % (AUTO) 67.2 %; RED BLOOD COUNT 3.94 10^6/uL (4.70-6.10)
[2016-11-30 18:14] LABS: PT - PROTHROMBIN TIME 11.4 secs (9.9-12.6)
[2016-11-30 18:20] LABS: ALBUMIN/GLOBULIN RATIO 2.3 (1.0-2.2); BILIRUBIN,TOTAL 0.5 mg/dL (0.2-1.0); BUN - BLOOD UREA NITROGEN 13 mg/dL (6-20); CALCIUM 9.4 mg/dL (8.5-10.3); CARBON DIOXIDE - CO2 29 mmol/L (21-32); CHLORIDE 101 mmol/L (101-111); CREATININE 1.1 mg/dL (0.6-1.2); GFR - MDRD 73 (>89); GLUCOSE 95 mg/dL (70-100); LIPASE 36 U/L (22-51); POTASSIUM 4.4 mmol/L (3.5-5.0); SODIUM 139 mmol/L (135-145); TOTAL PROTEIN 6.2 g/dL (6.7-8.2)
--- NOTE | 2016-11-30 18:46 | CT Preliminary Report ---
Exam: CT Cervical Spine W/O IMPRESSION: 1. No fracture. 2. Reversal of the normal cervical lordosis. No scoliosis. Normal prevertebral soft tissues. 3. Multilevel degenerative disk disease most severe at the C5-C6 and C6-C7 levels. [facility] SITE ID: [id number]
--- NOTE | 2016-11-30 18:48 | CT Preliminary Report ---
Exam: CT Head W/O IMPRESSION: Normal head CT. [facility] SITE ID: [id number]
[2016-11-30] MEDS ORDERED: ACETAMINOPHEN 500 MG TABLET PO STA (18:56)
--- NOTE | 2016-11-30 18:57 | CT Report ---
EXAM: CT HEAD EXAM DATE: 11/30/2016 06:19 PM. CLINICAL HISTORY: Head injury after fall. COMPARISON: 07/09/2014. TECHNIQUE: Multiaxial CT images were obtained from the foramen magnum to the vertex. IV contrast: Non e. Reformats: Coronal. In accordance with CT protocol optimization, one or more of the following dose reduction techniques w ere utilized for this exam: automated exposure control, adjustment of mA and/or KV based on patient s ize, or use of iterative reconstructive technique. FINDINGS: Parenchyma: No intraparenchymal hemorrhage. No evidence of mass, midline shift, or CT findings of inf arction. Hess-white differentiation is distinct. Extraaxial Spaces: Normal for age. No subdural or epidural collections identified. Ventricles: Normal in size and position. Sinuses: Imaged paranasal sinuses, orbits, and mastoids show no significant abnormality. Bones: No evidence of fracture or calvarial defect. Other: None. IMPRESSION: Normal head CT. [facility] Referring Provider Line: [phone] SITE ID: [id number]
--- NOTE | 2016-11-30 18:57 | CT Report ---
EXAM: CT CERVICAL SPINE WITHOUT CONTRAST DATE: 11/30/2016 06:16 PM HISTORY: Pain after injury. COMPARISONS: 05/14/2014 and 04/15/2014. TECHNIQUE: Thin-section axial images were acquired of the cervical spine without contrast. Post-proce ssing: Coronal and sagittal reformats. Other: None. In accordance with CT protocol optimization, one or more of the following dose reduction techniques w ere utilized for this exam: automated exposure control, adjustment of mA and/or KV based on patient s ize, or use of iterative reconstructive technique. FINDINGS: Alignment: Reversal of the normal cervical lordosis is noted. No scoliosis is present. Bones: No fracture or bone lesion. Interspace Levels/Facets: C1-C2: Mild degenerative changes between the C1 arch and dens articulation. C2-C3: Unremarkable. C3-C4: Mild disk narrowing with small disk osteophyte complex. No significant foraminal stenosis. C4-C5: Mild disk narrowing. No significant foraminal stenosis. C5-C6: Mild to moderate disk narrowing with prominent disk osteophyte complex. No significant bony fo raminal stenosis. C6-C7: Mild disk narrowing. C7-T1: Unremarkable. Musculature: Normal. No fatty atrophy. Other: The paravertebral and prevertebral soft tissues are normal. The lung apices are clear. IMPRESSION: 1. No fracture. 2. Reversal of the normal cervical lordosis. No scoliosis. Normal prevertebral soft tissues. 3. Multilevel degenerative disk disease most severe at the C5-C6 and C6-C7 levels. [facility] Referring Provider Line: [phone] SITE ID: [id number]
[2016-11-30] MEDS ORDERED: ACETAMINOPHEN 500 MG TABLET PO ONE (19:04)
[2016-11-30] MEDS ORDERED: KETOROLAC 60 MG/2 ML VIAL IVP STA (19:09)
[2016-11-30] MEDS ORDERED: KETOROLAC 30 MG/ML VIAL ONE (19:12)
[2016-11-30 19:13] VITALS: BP 115/60
[2016-11-30] MEDS ORDERED: SODIUM CHLORIDE FLUSH 0.9% 10 ML SYRINGE IVP ONE (19:13)
== END 2016-11-30 19:17 | disposition home or self-care (01) ==
LOC: EDUNIT# → ED 17:50
DX: S06.0X1A Concussion with loss of consciousness of 30 minutes or less, initial encounter (principal); S13.9XXA Sprain of joints and ligaments of unspecified parts of neck, initial encounter; W22.09XA Striking against other stationary object, initial encounter; I42.2 Other hypertrophic cardiomyopathy; I10 Essential (primary) hypertension; E66.01 Morbid (severe) obesity due to excess calories
CPT/HCPCS: 36415; 70450; 72125; 80053; 80185; 83690; 84484; 85025; 85610; 96374; 96375; 99284; J1170

== ENCOUNTER 2016-12-05 18:26 | Outpatient (CLI) | payer MEDICAID | END 2016-12-05 18:27 | disposition short-term general hospital (02) | LOC: EMS 18:26 | PROVIDERS: ATTEND Surgery | DX: R53.1 Weakness (principal); M54.2 Cervicalgia; R07.9 Chest pain, unspecified | CPT/HCPCS: A0425; A0427 ==

== ENCOUNTER 2016-12-10 17:53 | Outpatient (CLI) | payer MEDICAID | END 2016-12-10 17:54 | disposition short-term general hospital (02) | LOC: EMS 17:53 | PROVIDERS: ATTEND Surgery | DX: R07.9 Chest pain, unspecified (principal); R51 Headache; R11.0 Nausea | CPT/HCPCS: A0425; A0427 ==

== ENCOUNTER 2016-12-16 21:47 | Outpatient (CLI) | payer MEDICAID | END 2016-12-16 21:48 | disposition short-term general hospital (02) | LOC: EMS 21:47 | PROVIDERS: ATTEND Surgery | DX: M25.561 Pain in right knee (principal) | CPT/HCPCS: A0425; A0429; A0888 ==

== ENCOUNTER 2016-12-20 16:41 | Outpatient (CLI) | payer MEDICAID | END 2016-12-20 16:42 | disposition short-term general hospital (02) | LOC: EMS 16:41 | PROVIDERS: ATTEND Surgery | DX: R07.9 Chest pain, unspecified (principal); R51 Headache | CPT/HCPCS: A0425; A0427 ==

== ENCOUNTER 2016-12-31 16:40 | Emergency (ER) | payer MEDICAID ==
[2016-12-31] MEDS ORDERED: diphenhydrAMINE INJ 50 MG/ML VIAL IVP STA (16:48)
[2016-12-31] MEDS ORDERED: KETOROLAC 30 MG/ML VIAL IVP STA (16:48)
[2016-12-31] MEDS ORDERED: HALOPERIDOL 5 MG/ML VIAL IVP ONE (16:48)
--- NOTE | 2016-12-31 16:53 | ED Physician Documentation ---
History of Present Illness - Stated complaint Stated Complaint: HEADACHE - Chief complaint Chief Complaint: General - History obtained from History obtained from: Patient - Additonal information Additional information: 46-year-old gentleman with history of migraines and hypertrophic cardiomyopathy. He presents today for both headache and chest pain. Headache started this morning, he took Maxalt and it went away briefly. It recurred gradually this afternoon. A frontal headache associated with nausea and photophobia that he has not vomited. He was at [facility] days ago for this and received Compazine, Benadryl, Toradol, and Dilaudid. Headache started this afternoon at rest, it is a sharp nonradiating substernal pressure. There is no radiation to the back. He is not short of breath with it and it is worse with deep breathing. Review of Systems Constitutional: denies: Fever, Chills Nose: denies: Rhinorrhea / runny nose, Congestion Cardiac: denies: Palpitations Respiratory: denies: Dyspnea, Cough GI: denies: Abdominal Pain, Nausea, Vomiting PD PAST MEDICAL HISTORY - Past Medical History Cardiovascular: Hypertension, High cholesterol Respiratory: Asthma, Shortness of breath Neuro: Headache/migraine Endocrine/Autoimmune: None GI: None, Crohn's disease, Other : None HEENT: None, Other Psych: Depression, Anxiety, Post traumatic stress disorder, Other Musculoskeletal: Osteoarthritis, Fibromyalgia, Fatigue, Chronic back pain Derm: Eczema - Past Surgical History Past Surgical History: Yes General: Appendectomy HEENT: Cataracts - Present Medications Home Medications: Ambulatory Orders Medication Instructions Recorded Confirmed Omeprazole 40 mg PO BID 03/01/14 12/31/16 Pregabalin [Lyrica] 300 mg PO BID 05/14/14 12/31/16 Rizatriptan Benzoate [Maxalt Machine Loader] 1 tab PO PRN PRN 06/10/14 12/31/16 sulfaSALAzine [Sulfasalazine] 1,500 mg PO BID 06/10/14 12/31/16 Albuterol Sulfate [Proair Hfa 2 puffs INH Q6HR PRN 07/18/14 12/31/16 Inhaler] Meclizine HCl 25 mg PO Q6H PRN #30 tablet 01/06/15 12/31/16 Promethazine [Phenergan] 25 - 50 mg PO Q6H PRN #30 tab 01/06/15 12/31/16 Alprazolam [Xanax] 1 mg PO BID 10/19/16 12/31/16 Divalproex Sodium [Depakote] 250 mg PO BID 10/19/16 12/31/16 Oxycodone HCl/Acetaminophen 1 each PO BID PRN 10/19/16 12/31/16 [Percocet 10-325 mg Tablet] tiZANidine [Zanaflex] 8 mg PO TID 10/19/16 12/31/16 - Allergies Allergies/Adverse Reactions: Allergies Allergy/AdvReac Type Severity Reaction Status Date / Time amitriptyline [Amitriptyline] Allergy Mild Anxiety Verified 12/31/16 16:47 codeine [Codeine] Allergy Mild Hives Verified 12/31/16 16:47 telmisartan [From Micardis] Allergy Mild Hives Verified 12/31/16 16:47 venom-honey bee Allergy Anaphylaxis Verified 12/31/16 16:47 [bee venom (honey bee)] lisinopril AdvReac Anxiety Verified 12/31/16 16:47 NSAIDS (Non-Steroidal AdvReac Emesis Verified 12/31/16 16:47 Anti-Inflamma tramadol HCl * [From Ultram] AdvReac Unknown Verified 12/31/16 16:47 Ghost peppers Allergy Anaphylaxis Uncoded 12/31/16 16:47 squash Allergy Anaphylaxis Uncoded 12/31/16 16:47 zuccinni Allergy Anaphylaxis Uncoded 12/31/16 16:47 - Social History Does the pt smoke?: Yes Smoking Status: Former smoker Does the pt drink ETOH?: Yes Does the pt have substance abuse?: No - Immunizations Immunizations are current?: Yes - POLST Patient has POLST: No PD ED PE NORMAL - Vitals Vital signs reviewed: Yes - General General: Alert and oriented X 3, No acute distress - HEENT HEENT: PERRL, EOMI - Neck Neck: Supple, no meningeal sign, No bony TTP - Cardiac Cardiac: RRR, No murmur, No rub - Respiratory Respiratory: No respiratory distress, Clear bilaterally - Abdomen Abdomen: Soft, Non tender - Extremities Extremities: No edema, No calf tenderness / cord - Neuro Neuro: Alert and oriented X 3, Normal speech - Psych Psych: Normal mood, Normal affect Results - Vitals Vitals: Vital Signs - 24 hr 12/31/16 12/31/16 12/31/16 16:43 17:42 18:31 Temperature 36.8 C Heart Rate 66 62 66 Respiratory 18 19 18 Rate Blood Pressure 138/82 H 143/69 H 141/82 H O2 Saturation 98 97 98 Oxygen O2 Source Room air - EKG (time done) 1650 Rate: Rate (enter#) (63) Rhythm: NSR [place]: Normal Intervals: Normal HI Ischemia: Non specific changes (Deeply inverted T waves anteriorly and laterally with J-point elevation in lead III and V1 through V3. This is all unchanged from prior EKGs including the most recent on our chart, October 19 of this year.) Computer interpretation: Agree with computer - Labs Labs: Laboratory Tests 12/31/16 12/31/16 12/31/16 17:00 17:00 17:00 WBC 5.4 RBC 4.02 L Hgb 13.5 L Hct 40.4 L MCV 100.6 H MCH 33.5 H MCHC 33.3 RDW 18.6 H Plt Count 216 MPV 7.6 Neut # 3.3 Lymph # 1.7 [place] # 0.4 Eos # 0.0 Baso # 0.1 Absolute Nucleated RBC 0.00 Nucleated RBC % 0.1 Sodium 142 Potassium 3.3 L Chloride 105 Carbon Dioxide 27 Anion Gap 10.0 BUN 10 Creatinine 0.8 Estimated GFR (MDRD) 105 Glucose 93 Calcium 9.7 Total Bilirubin 0.5 AST 14 ALT 12 Alkaline Phosphatase 50 Troponin I < 0.04 Total Protein 6.8 Albumin 4.5 Globulin 2.3 Albumin/Globulin Ratio 2.0 Lipase 48 Urine Opiates Screen Ur Oxycodone Screen Urine Methadone Screen Ur Propoxyphene Screen Ur Barbiturates Screen Ur Tricyclics Screen Ur Phencyclidine Scrn Ur Amphetamine Screen U Methamphetamines Scrn U Benzodiazepines Scrn Urine Cocaine Screen U Cannabinoids Screen Ethyl Alcohol < 5.0 12/31/16 17:00 WBC RBC Hgb Hct MCV MCH MCHC RDW Plt Count MPV Neut # Lymph # [place] # Eos # Baso # Absolute Nucleated RBC Nucleated RBC % Sodium Potassium Chloride Carbon Dioxide Anion Gap BUN Creatinine Estimated GFR (MDRD) Glucose Calcium Total Bilirubin AST ALT Alkaline Phosphatase Troponin I Total Protein Albumin Globulin Albumin/Globulin Ratio Lipase Urine Opiates Screen NEGATIVE Ur Oxycodone Screen NEGATIVE Urine Methadone Screen NEGATIVE Ur Propoxyphene Screen NEGATIVE Ur Barbiturates Screen NEGATIVE Ur Tricyclics Screen NEGATIVE Ur Phencyclidine Scrn NEGATIVE Ur Amphetamine Screen NEGATIVE U Methamphetamines Scrn NEGATIVE U Benzodiazepines Scrn POSITIVE H Urine Cocaine Screen NEGATIVE U Cannabinoids Screen POSITIVE H Ethyl Alcohol - Rads (name of study) 1v chest Radiology: EMP read contemporaneously (NAD) PD MEDICAL DECISION MAKING - ED course ED course: 46-year-old gentleman complains of migraine headache, it is classic onset no different from priors without infectious symptoms are sudden onset. He also has chest pain. He has known hypertrophic obstructive cardiomyopathy. Recent catheterization per my own notes with non-intervene upon coronary disease. He has no acute EKG changes and a negative troponin. He was administered Toradol, Benadryl, Haldol with incomplete relief of his headache, this was followed by [facility] at which point he was sleeping comfortably. Departure - Departure Disposition: 01 Home, Self Care Clinical Impression: Atypical chest pain Migraine Qualifiers: Migraine type: without aura Status migrainosus presence: with status migrainosus Intractability: not intractable Qualified Code(s): G43.001 - Migraine without aura, not intractable, with status migrainosus Condition: Good Record reviewed to determine appropriate education?: Yes Instructions: ED Cephalgia Unspecified Comments: Call your doctor to arrange a follow-up appointment, make the next available appointment. In the interim, return anytime if worse or if new symptoms develop. Your blood pressure was elevated today on check into the emergency department. This does not mean that you have hypertension, it is a common phenomenon to come to the emergency department and have elevated blood pressure. I recommend that you see your primary care physician within the week to have it rechecked when you are feeling better. Discharge Date/Time: 12/31/16 18:50
[2016-12-31] MEDS ORDERED: KETOROLAC 30 MG/ML VIAL ONE (16:58)
[2016-12-31] MEDS ORDERED: HALOPERIDOL 5 MG/ML VIAL ONE (16:58)
[2016-12-31] MEDS ORDERED: diphenhydrAMINE INJ 50 MG/ML VIAL ONE (16:58)
[2016-12-31 17:04] LABS: BASOPHILS # (AUTO) 0.1 10^3/uL (0.0-0.1); EOSINOPHILS % (AUTO) 0.1 %; HCT - HEMATOCRIT 40.4 % (42.0-52.0); HGB - HEMOGLOBIN 13.5 g/dL (14.0-18.0); LYMPHOCYTES # (AUTO) 1.7 10^3/uL (1.5-3.5); LYMPHOCYTES % (AUTO) 30.4 %; MEAN CORPUSCULAR HEMOGLOBIN 33.5 pg (27.0-31.0); MEAN CORPUSCULAR HGB CONC 33.3 g/dL (32.0-36.0); MEAN CORPUSCULAR VOLUME 100.6 fL (80.0-94.0); MEAN PLATELET VOLUME 7.6 fL (7.4-11.4); MONOCYTES # (AUTO) 0.4 10^3/uL (0.0-1.0); MONOCYTES % (AUTO) 6.7 %; NEUTROPHILS # (AUTO) 3.3 10^3/uL (1.5-6.6); NEUTROPHILS % (AUTO) 61.8 %; NUCLEATED RED BLOOD CELLS AUTO 0.1 /100WBC; RED BLOOD COUNT 4.02 10^6/uL (4.70-6.10); RED CELL DISTRIBUTION WIDTH 18.6 % (12.0-15.0); UNCORRECTED WHITE BLOOD COUNT 5.4 x10^3/uL; WHITE BLOOD COUNT 5.4 x10^3/uL (4.8-10.8)
[2016-12-31 17:18] LABS: BILIRUBIN,TOTAL 0.5 mg/dL (0.2-1.0); BUN - BLOOD UREA NITROGEN 10 mg/dL (6-20); CALCIUM 9.7 mg/dL (8.5-10.3); CARBON DIOXIDE - CO2 27 mmol/L (21-32); CHLORIDE 105 mmol/L (101-111); CREATININE 0.8 mg/dL (0.6-1.2); GFR - MDRD 105 (>89); GLUCOSE 93 mg/dL (70-100); LIPASE 48 U/L (22-51); POTASSIUM 3.3 mmol/L (3.5-5.0); SODIUM 142 mmol/L (135-145); TOTAL PROTEIN 6.8 g/dL (6.7-8.2)
[2016-12-31] MEDS ORDERED: METOCLOPRAMIDE 10 MG/2 ML VIAL IVP STA (17:35)
--- NOTE | 2016-12-31 17:46 | XRAY Preliminary Report ---
Exam: XR CHEST 1 VIEW IMPRESSION: No acute cardiopulmonary abnormality. [facility] SITE ID: [id number]
--- NOTE | 2016-12-31 17:49 | XRAY Report ---
EXAM: CHEST RADIOGRAPHY EXAM DATE: 12/31/2016 05:25 PM. CLINICAL HISTORY: CHEST PAIN. COMPARISON: 01/06/2015. TECHNIQUE: 1 view. FINDINGS: Lungs/Pleura: No focal opacities evident. No pleural effusion. No pneumothorax. Mediastinum: Within exam limitations, the cardiomediastinal contour is normal. Other: None. IMPRESSION: No acute cardiopulmonary abnormality. [facility] Referring Provider Line: [phone] SITE ID: [id number]
[2016-12-31] MEDS ORDERED: METOCLOPRAMIDE 10 MG/2 ML VIAL ONE (17:50)
[2016-12-31 18:32] VITALS: BP 141/82
== END 2016-12-31 18:50 | disposition home or self-care (01) ==
LOC: EDUNIT# → ED 16:40
DX: R07.89 Other chest pain (principal); G43.001 Migraine without aura, not intractable, with status migrainosus; I10 Essential (primary) hypertension; E78.00 Pure hypercholesterolemia, unspecified; K50.90 Crohn's disease, unspecified, without complications; M79.7 Fibromyalgia; M19.90 Unspecified osteoarthritis, unspecified site; Z87.891 Personal history of nicotine dependence
CPT/HCPCS: 36415; 71010; 80053; 80306; 80320; 83690; 84484; 85025; 93005; 96374; 96375; 99284

== ENCOUNTER 2017-02-04 13:10 | Outpatient (CLI) | payer MEDICAID | END 2017-02-04 13:11 | disposition critical access hospital (66) | LOC: EMS 13:10 | PROVIDERS: ATTEND Surgery | DX: R41.82 Altered mental status, unspecified (principal); W19.XXXA Unspecified fall, initial encounter; Y92.039 Unspecified place in apartment as the place of occurrence of the external cause | CPT/HCPCS: A0425; A0427 ==

== ENCOUNTER 2017-02-04 13:34 | Emergency (ER) | payer MEDICAID ==
--- NOTE | 2017-02-04 14:23 | ED Physician Documentation ---
PD HPI HEAD INJURY - Stated complaint Stated Complaint: AMS/FALL - Chief complaint Chief Complaint: Neuro - History obtained from History obtained from: Patient, EMS - History of Present Illness Mechanism of head injury: Fell Where head injury occurred: Home Timing - onset: Other (Just prior to arrival) Recently seen: Emergency Dept - Additional information Additional information: 46-year-old male brought by ambulance to the emergency department after a fall in his home. Patient's roommates heard him fall. Patient noted to be quite sleepy during transfer to the emergency department. He does take Percocet so was given a dose of 0.8 of Narcan en route to the emergency department with no improvement in his mental status.He also has a history of cardiac disease, he reports that he has frequent chest pain which he had this morning but it was mild and this preceded his fall by several hours.On review of records patient has a history of hypertrophic cardiomyopathy.He reports that he has taken his home Xanax as well as Percocet today. Denies alcohol intake today. Medics report that there was a large amount of marijuana products in the home, patient says that his roommate uses these but he does not. PD PAST MEDICAL HISTORY - Past Medical History Cardiovascular: Hypertension, High cholesterol Respiratory: Asthma, Shortness of breath Neuro: Headache/migraine Endocrine/Autoimmune: None GI: None, Crohn's disease, Other : None HEENT: None, Other Psych: Depression, Anxiety, Post traumatic stress disorder, Other Musculoskeletal: Osteoarthritis, Fibromyalgia, Fatigue, Chronic back pain Derm: Eczema - Past Surgical History Past Surgical History: Yes General: Appendectomy Cardiovascular: Other HEENT: Cataracts - Present Medications Home Medications: Ambulatory Orders Medication Instructions Recorded Confirmed Pregabalin [Lyrica] 300 mg PO BID 05/14/14 02/04/17 sulfaSALAzine [Sulfasalazine] 1,500 mg PO BID 06/10/14 02/04/17 Albuterol Sulfate [Proair Hfa 2 puffs INH Q6HR PRN 07/18/14 02/04/17 Inhaler] Meclizine HCl 25 mg PO Q6H PRN #30 tablet 01/06/15 02/04/17 Promethazine [Phenergan] 25 - 50 mg PO Q6H PRN #30 tab 01/06/15 02/04/17 Alprazolam [Xanax] 1 mg PO BID 10/19/16 02/04/17 Divalproex Sodium [Depakote] 250 mg PO BID 10/19/16 02/04/17 Oxycodone HCl/Acetaminophen 1 each PO BID PRN 10/19/16 02/04/17 [Percocet 10-325 mg Tablet] tiZANidine [Zanaflex] 8 mg PO TID 10/19/16 02/04/17 Verapamil HCl [Verapamil ER] 120 mg PO DAILY 02/04/17 02/04/17 - Allergies Allergies/Adverse Reactions: Allergies Allergy/AdvReac Type Severity Reaction Status Date / Time amitriptyline [Amitriptyline] Allergy Mild Anxiety Verified 02/04/17 13:48 codeine [Codeine] Allergy Mild Hives Verified 02/04/17 13:48 telmisartan [From Micardis] Allergy Mild Hives Verified 02/04/17 13:48 venom-honey bee Allergy Anaphylaxis Verified 02/04/17 13:48 [bee venom (honey bee)] lisinopril AdvReac Anxiety Verified 02/04/17 13:48 NSAIDS (Non-Steroidal AdvReac Emesis Verified 02/04/17 13:48 Anti-Inflamma tramadol HCl * [From Ultram] AdvReac Unknown Verified 02/04/17 13:48 Ghost peppers Allergy Anaphylaxis Uncoded 02/04/17 13:48 squash Allergy Anaphylaxis Uncoded 02/04/17 13:48 [email or web address] Allergy Anaphylaxis Uncoded 02/04/17 13:48 - Social History Does the pt smoke?: Yes Smoking Status: Current every day smoker Does the pt drink ETOH?: No Does the pt have substance abuse?: No - Immunizations Immunizations are current?: Yes Immunizations: TDAP >10years/unknown, Other immun not current - POLST Patient has POLST: No PD ED PE NORMAL - Vitals Vital signs reviewed: Yes - General General: Alert and oriented X 3, Other (Morbidly obese, sleepy but arousable. Slurred speech.) - HEENT HEENT: PERRL, EOMI, Other (Small superficial abrasion to chin.) - Neck Neck: No bony TTP - Cardiac Cardiac: No murmur, Other (Bradycardia) - Respiratory Respiratory: Clear bilaterally - Abdomen Abdomen: Normal bowel sounds, Soft, Non tender, Non distended - Derm Derm: Warm and dry - Extremities Extremities: No deformity - Neuro Neuro: Alert and oriented X 3 Eye Opening: To Voice Motor: Obeys Commands Verbal: Oriented GCS Score: 14 - Psych Psych: Other (Sleepy but arousable with slurred speech) Results - Vitals Vitals: Oxygen O2 Source Room air - EKG (time done) 1341 Rate: Rate (enter#) (56), [place] Rhythm: Sinus bradycardia [place]: Normal Intervals: Normal VT QRS: Normal Other comments: Other comments ([address] elevation in lead III, deep T-wave inversions V3 through V6 and lead I.ST depression in V4 and V5In lead I. His ST elevation in lead III as well as depressions and inversions are unchanged from EKG on December 31, 2016 when patient was seen in the emergency department for chest pain and headache.) - Labs Labs: Laboratory Tests 02/04/17 02/04/17 02/04/17 14:00 14:00 14:00 WBC 5.0 RBC 3.72 L Hgb 12.5 L Hct 36.8 L MCV 98.9 H MCH 33.6 H MCHC 33.9 RDW 16.1 H Plt Count 175 MPV 9.6 Neut # 2.8 Lymph # 1.6 [place] # 0.5 Eos # 0.0 Baso # 0.1 Absolute Nucleated RBC 0.00 Nucleated RBC % 0.0 PT 11.2 INR 1.0 Sodium 140 Potassium 3.5 Chloride 108 Carbon Dioxide 23 Anion Gap 9.0 BUN 10 Creatinine 1.0 Estimated GFR (MDRD) 81 L Glucose 112 H Calcium 8.6 Total Bilirubin 0.3 AST 15 ALT 14 Alkaline Phosphatase 44 Troponin I Total Protein 5.2 L Albumin 3.7 Globulin 1.5 L Albumin/Globulin Ratio 2.5 H Salicylates < 6.0 Acetaminophen < 10 L Ethyl Alcohol < 5.0 02/04/17 02/04/17 14:00 16:56 WBC RBC Hgb Hct MCV MCH MCHC RDW Plt Count MPV Neut # Lymph # [place] # Eos # Baso # Absolute Nucleated RBC Nucleated RBC % PT INR Sodium Potassium Chloride Carbon Dioxide Anion Gap BUN Creatinine Estimated GFR (MDRD) Glucose Calcium Total Bilirubin AST ALT Alkaline Phosphatase Troponin I < 0.04 < 0.04 Total Protein Albumin Globulin Albumin/Globulin Ratio Salicylates Acetaminophen Ethyl Alcohol - Rads (name of study) CT head Radiology: Final report received (Unremarkable noncontrast head CT) PD MEDICAL DECISION MAKING - ED course ED course: 46-year-old male presents to the emergency department with depressed mental status following a fall. Unclear whether syncope. I suspect that patient's altered mental status may have preceded his fall. My high suspicion is for polypharmacy however given the patient has fallen will check a CT of the head. He complained of neck pain and a CT of the cervical spine was ordered as well. Patient's EKG does reveal abnormalities, however on previous visit same abnormalities present, and according to emergency department notes patient has a history of hypertrophic cardiomyopathy and nonintravenous both coronary artery disease.I have a low suspicion for ACS or cardiac arrythmia as the source of patient's syncopal event Given his mental status, this is a much more likely source for patient's fall. 1624 patient asks me if he may leave the emergency department now as he is feeling at his usual baseline. His speech is still somewhat slow. 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 1743 Discussed patient's case with Dr. Ozuna conditioning room worker for cardiology at [facility]. He recommended that the patient have his pacemaker interrogated this evening. However I spoke with [employer] and they report that they are unable to do so and could not do an interrogation for several hours or until tomorrow morning given the remote location of our hospital. Discussed this again with Dr. Ozuna who recommended that the patient will be monitored on telemetry until they are able to come and do the interrogation especially given the patient has a structural abnormality of his heart that may put him at higher risk of a cardiac arrhythmia. Discussed this recommendation with the patient who is agreeable. 1757 Discussed with [employer] front desk representative, confirmed that a front desk representative would be available in the morning for the patient's pacemaker interrogation. Either Deacon Faustin or Tej Daniels will come to hospital [employer] may be reached at [phone]. Loop recorder interrogation completed with no events. Updated patient who was then discharged home. Departure - Departure Disposition: 01 Home, Self Care Clinical Impression: Altered mental status, Syncope, Fall Condition: Good Instructions: ED Dizziness Syncope Fainting W Pre Comments: We did not find a cause for your symptoms today. Your suspicion that this is your cataplexy may be correct. Your loop recorder was interrogated today and did not show any events to correspond with your fall today. Please make an appointment to follow-up with your software design analyst regarding your visit to the emergency department. Please be careful that you do not use your medications that can make you sleepy too frequently.These may have also contributed to what happened today.Return to the emergency department if you have chest pain, difficulty breathing, or any new or different symptoms. Discharge Date/Time: 02/04/17 20:35
--- NOTE | 2017-02-04 14:40 | CT Preliminary Report ---
Exam: CT HEAD W/O IMPRESSION: Unremarkable noncontrast head CT. [facility] SITE ID: [id number]
--- NOTE | 2017-02-04 14:42 | CT Report ---
EXAM: CT HEAD EXAM DATE: 02/04/2017 02:27 PM. CLINICAL HISTORY: Fall, lethargy. COMPARISON: Head CT 11/30/2016. TECHNIQUE: Multiaxial CT images were obtained from the foramen magnum to the vertex. Reformats: Coron al. IV contrast: None. In accordance with CT protocol optimization, one or more of the following dose reduction techniques w ere utilized for this exam: automated exposure control, adjustment of mA and/or KV based on patient s ize, or use of iterative reconstructive technique. FINDINGS: Parenchyma: No intracranial bleed or mass effect. Hess-white differentiation is distinct. Extraaxial Spaces: Normal for age. No subdural or epidural collections identified. Ventricles: Normal in size and position. Sinuses and Orbits: Minimal mucus retention cyst right maxillary sinus. Bones: No evidence of fracture or calvarial defect. Other: Minimal calcification left parietal scalp. IMPRESSION: Unremarkable noncontrast head CT. [facility] Referring Provider Line: [phone] SITE ID: [id number]
[2017-02-04 14:46] LABS: ALBUMIN/GLOBULIN RATIO 2.5 (1.0-2.2); BILIRUBIN,TOTAL 0.3 mg/dL (0.2-1.0); BUN - BLOOD UREA NITROGEN 10 mg/dL (6-20); CALCIUM 8.6 mg/dL (8.5-10.3); CARBON DIOXIDE - CO2 23 mmol/L (21-32); CHLORIDE 108 mmol/L (101-111); GFR - MDRD 81 (>89); GLUCOSE 112 mg/dL (70-100); POTASSIUM 3.5 mmol/L (3.5-5.0); SALICYLATE < 6.0 mg/dL; SODIUM 140 mmol/L (135-145); TOTAL PROTEIN 5.2 g/dL (6.7-8.2)
--- NOTE | 2017-02-04 14:47 | CT Preliminary Report ---
Exam: CT CERVICAL SPINE W/O IMPRESSION: Degenerative disk disease cervical spine without evidence of cervical spine fracture. [facility] SITE ID: [id number]
[2017-02-04 14:48] LABS: ACETAMINOPHEN < 10 ug/mL (10-30)
--- NOTE | 2017-02-04 14:50 | CT Report ---
EXAM: CT CERVICAL SPINE WITHOUT CONTRAST DATE: 02/04/2017 02:28 PM. HISTORY: Fall, lethargy. COMPARISONS: None. TECHNIQUE: Thin-section axial images were acquired of the cervical spine without contrast. Post-proce ssing: Coronal and sagittal reformats. Other: None. In accordance with CT protocol optimization, one or more of the following dose reduction techniques w ere utilized for this exam: automated exposure control, adjustment of mA and/or KV based on patient s ize, or use of iterative reconstructive technique. FINDINGS: Alignment: No scoliosis or spondylolisthesis. Bones: Cleft at the anterior margin of the right vertebral foramen at C4. No clear fracture. Interspace Levels/Facets: C1-C2: Unremarkable. C2-C3: Unremarkable. C3-C4: Facet hypertrophy with anterior and posterior osteophytes without significant stenosis. C4-C5: Anterior osteophytes without significant stenosis. C5-C6: Anterior and eccentric posterior osteophytes causing mild left foraminal stenosis. C6-C7: Anterior and eccentric posterior osteophytes causing moderate left foraminal stenosis. C7-T1: Facet hypertrophy with posterior osteophytes causing mild right foraminal stenosis. Other: The paravertebral and prevertebral soft tissues are unremarkable. IMPRESSION: Degenerative disk disease cervical spine without evidence of cervical spine fracture. [facility] Referring Provider Line: [phone] SITE ID: [id number]
[2017-02-04 14:54] LABS: BASOPHILS # (AUTO) 0.1 10^3/uL (0.0-0.1); BASOPHILS % (AUTO) 1.3 %; EOSINOPHILS % (AUTO) 0.2 %; HCT - HEMATOCRIT 36.8 % (42.0-52.0); HGB - HEMOGLOBIN 12.5 g/dL (14.0-18.0); LYMPHOCYTES # (AUTO) 1.6 10^3/uL (1.5-3.5); LYMPHOCYTES % (AUTO) 31.6 %; MEAN CORPUSCULAR HEMOGLOBIN 33.6 pg (27.0-31.0); MEAN CORPUSCULAR HGB CONC 33.9 g/dL (32.0-36.0); MEAN CORPUSCULAR VOLUME 98.9 fL (80.0-94.0); MEAN PLATELET VOLUME 9.6 fL (7.4-11.4); MONOCYTES # (AUTO) 0.5 10^3/uL (0.0-1.0); MONOCYTES % (AUTO) 9.9 %; NEUTROPHILS # (AUTO) 2.8 10^3/uL (1.5-6.6); RED BLOOD COUNT 3.72 10^6/uL (4.70-6.10); RED CELL DISTRIBUTION WIDTH 16.1 % (12.0-15.0)
[2017-02-04 14:58] LABS: PT - PROTHROMBIN TIME 11.2 secs (9.9-12.6)
[2017-02-04] MEDS ORDERED: ACETAMINOPHEN 325 MG TABLET PO STA (16:44)
[2017-02-04 19:40] VITALS: BP 100/58
== END 2017-02-04 20:35 | disposition home or self-care (01) ==
LOC: EDUNIT# → ED 13:34
DX: R41.82 Altered mental status, unspecified (principal); R55 Syncope and collapse; Z91.81 History of falling; R94.31 Abnormal electrocardiogram [ECG] [EKG]; I10 Essential (primary) hypertension; E78.00 Pure hypercholesterolemia, unspecified; F17.200 Nicotine dependence, unspecified, uncomplicated
CPT/HCPCS: 36415; 70450; 72125; 80053; 80306; 80307; 80320; 80329; 84484; 85025; 85610; 93005; 99284

== ENCOUNTER 2017-02-09 13:14 | Outpatient (CLI) | payer MEDICAID | END 2017-02-09 13:15 | disposition critical access hospital (66) | LOC: ED 13:14 | PROVIDERS: ATTEND Surgery | DX: M25.561 Pain in right knee (principal) | CPT/HCPCS: A0425; A0429 ==

== ENCOUNTER 2017-02-09 13:51 | Observation (INO) | payer MEDICAID ==
[2017-02-09 14:19] LABS: BASOPHILS # (AUTO) 0.1 10^3/uL (0.0-0.1); BASOPHILS % (AUTO) 1.4 %; EOSINOPHILS % (AUTO) 0.2 %; HCT - HEMATOCRIT 39.8 % (42.0-52.0); HGB - HEMOGLOBIN 13.4 g/dL (14.0-18.0); LYMPHOCYTES # (AUTO) 1.4 10^3/uL (1.5-3.5); MEAN CORPUSCULAR HEMOGLOBIN 32.9 pg (27.0-31.0); MEAN CORPUSCULAR HGB CONC 33.5 g/dL (32.0-36.0); MEAN CORPUSCULAR VOLUME 98.1 fL (80.0-94.0); MEAN PLATELET VOLUME 8.6 fL (7.4-11.4); MONOCYTES # (AUTO) 0.5 10^3/uL (0.0-1.0); MONOCYTES % (AUTO) 10.6 %; NEUTROPHILS # (AUTO) 2.5 10^3/uL (1.5-6.6); NEUTROPHILS % (AUTO) 56.8 %; RED BLOOD COUNT 4.06 10^6/uL (4.70-6.10); RED CELL DISTRIBUTION WIDTH 16.2 % (12.0-15.0); UNCORRECTED WHITE BLOOD COUNT 4.4 x10^3/uL; WHITE BLOOD COUNT 4.4 x10^3/uL (4.8-10.8)
[2017-02-09 14:32] LABS: ALBUMIN/GLOBULIN RATIO 2.4 (1.0-2.2); BILIRUBIN,TOTAL 0.5 mg/dL (0.2-1.0); CALCIUM 8.9 mg/dL (8.5-10.3); POTASSIUM 3.8 mmol/L (3.5-5.0); TOTAL PROTEIN 5.5 g/dL (6.7-8.2)
--- NOTE | 2017-02-09 14:34 | CT Preliminary Report ---
Exam: CT HEAD W/O IMPRESSION: No acute intracranial abnormality. [facility] SITE ID: [id number]
--- NOTE | 2017-02-09 14:37 | CT Report ---
EXAM: CT HEAD EXAM DATE: 02/09/2017 02:24 PM. CLINICAL HISTORY: Altered level of consciousness. COMPARISON: 02/04/2017. TECHNIQUE: Multiaxial CT images were obtained from the foramen magnum to the vertex. Reformats: Coron al. IV contrast: None. In accordance with CT protocol optimization, one or more of the following dose reduction techniques w ere utilized for this exam: automated exposure control, adjustment of mA and/or KV based on patient s ize, or use of iterative reconstructive technique. FINDINGS: Parenchyma: No intraparenchymal hemorrhage. No evidence of mass, midline shift, or CT findings of inf arction. Hess-white differentiation is distinct. Extraaxial Spaces: Normal for age. No subdural or epidural collections identified. Ventricles: Normal in size and position. Sinuses and Orbits: Imaged paranasal sinuses, orbits, and mastoids show no significant abnormality. Bones: No evidence of fracture or calvarial defect. Other: Small incidental left parietal scalp calcification. IMPRESSION: No acute intracranial abnormality. [facility] Referring Provider Line: [phone] SITE ID: [id number]
[2017-02-09 15:24] LABS: BILIRUBIN,URINE NEGATIVE (NEGATIVE); UA CHARGE (STRIP ONLY) YES; UR CULTURE IF IND NOT INDICATED
--- NOTE | 2017-02-09 18:19 | ED Physician Documentation ---
PD HPI ALTERED MENTAL STATUS - History obtained from History obtained from: Patient, EMS - History of Present Illness Timing - onset: Today Timing - duration: Hours Timing - details: Gradual onset, Still present Quality / character: Less responsive, Other (dysarthric speech) Associated symptoms: Other (knee pain) Contributing factors: Substance abuse, Known psych illness Basline status: Alert and oriented X 3, Ambulatory Similar symptoms before: Diagnosis (narcotic overdose) Recently seen: Emergency Dept - Stated complaint Stated Complaint: KNEE PX - Chief complaint Chief Complaint: Neuro - Additional information Additional information: 46-year-old male with a complicated past medical history including multiple visits to the emergency department for altered mental status related to narcotic overdose. He does have history of narcotic abuse as well as benzodiazepine abuse.Today the patient called the ambulance with chief complaint of knee pain. When the ambulance showed up to his house they found the patient on his knees and appearedSomnolent. He does appear to answer questions appropriately and appears to be oriented drifts off to sleep relatively easily and has some dysarthric speech.Review of the patient's past medical record here at [facility], and on his EMILY, form indicate an issue with prescription controlled substances.In addition the patient does have hypertrophic cardiomyopathy and a pacemaker in place. He is no help in the history and indicates he gets cataplexy periodically. (Facundo Gill) Review of Systems Constitutional: denies: Fever, Chills Eyes: denies: Decreased vision Ears: denies: Ear pain Nose: denies: Congestion Throat: denies: Sore throat Cardiac: denies: Chest pain / pressure Respiratory: denies: Dyspnea, Cough GI: denies: Nausea, Vomiting, Diarrhea : denies: Dysuria Skin: denies: Rash Musculoskeletal: reports: Joint pain (knees). denies: Neck pain Neurologic: denies: Generalized weakness, Focal weakness, Numbness PD PAST MEDICAL HISTORY - Past Medical History Cardiovascular: Hypertension, High cholesterol Respiratory: Asthma, Shortness of breath Neuro: Headache/migraine Endocrine/Autoimmune: None GI: None, Crohn's disease, Other : None HEENT: None, Other Psych: Depression, Anxiety, Post traumatic stress disorder, Other Musculoskeletal: Osteoarthritis, Fibromyalgia, Fatigue, Chronic back pain Derm: Eczema - Past Surgical History Past Surgical History: Yes General: Appendectomy Cardiovascular: Other HEENT: Cataracts - Social History Does the pt smoke?: Yes Smoking Status: Current every day smoker Does the pt drink ETOH?: No Does the pt have substance abuse?: No - Immunizations Immunizations are current?: Yes Immunizations: TDAP >10years/unknown, Other immun not current - POLST Patient has POLST: No - Present Medications Home Medications: Ambulatory Orders Medication Instructions Recorded Confirmed Pregabalin [Lyrica] 300 mg PO BID 05/14/14 02/09/17 sulfaSALAzine [Sulfasalazine] 1,500 mg PO BID 06/10/14 02/09/17 Albuterol Sulfate [Proair Hfa 2 puffs INH Q6HR PRN 07/18/14 02/09/17 Inhaler] Meclizine HCl 25 mg PO Q6H PRN #30 tablet 01/06/15 02/09/17 Promethazine [Phenergan] 25 - 50 mg PO Q6H PRN #30 tab 01/06/15 02/09/17 Alprazolam [Xanax] 1 mg PO BID 10/19/16 02/09/17 Divalproex Sodium [Depakote] 250 mg PO BID 10/19/16 02/09/17 Oxycodone HCl/Acetaminophen 1 each PO BID PRN 10/19/16 02/09/17 [Percocet 10-325 mg Tablet] tiZANidine [Zanaflex] 8 mg PO TID 10/19/16 02/09/17 Verapamil HCl [Verapamil ER] 120 mg PO DAILY 02/04/17 02/09/17 - Allergies Allergies/Adverse Reactions: Allergies Allergy/AdvReac Type Severity Reaction Status Date / Time amitriptyline [Amitriptyline] Allergy Mild Anxiety Verified 02/04/17 13:48 codeine [Codeine] Allergy Mild Hives Verified 02/04/17 13:48 telmisartan [From Micardis] Allergy Mild Hives Verified 02/04/17 13:48 venom-honey bee Allergy Anaphylaxis Verified 02/04/17 13:48 [bee venom (honey bee)] lisinopril AdvReac Anxiety Verified 02/04/17 13:48 NSAIDS (Non-Steroidal AdvReac Emesis Verified 02/04/17 13:48 Anti-Inflamma tramadol HCl * [From Ultram] AdvReac Unknown Verified 02/04/17 13:48 Ghost peppers Allergy Anaphylaxis Uncoded 02/04/17 13:48 squash Allergy Anaphylaxis Uncoded 02/04/17 13:48 zuccinni Allergy Anaphylaxis Uncoded 02/04/17 13:48 PD ED PE NORMAL - Vitals Vital signs reviewed: Yes (normal ) - General General: No acute distress, Well developed/nourished, Other (overweight 46 y/o male with eyes half closed and dysarthric speech is able to answer questions and drifts off to sleep. He is not admitting to excessive narcotic use. ) - HEENT HEENT: Atraumatic, PERRL, EOMI, Ears normal, Pharynx benign, Other (dry mucous membranes. ) - Neck Neck: Supple, no meningeal sign, No bony TTP - Cardiac Cardiac: RRR, No murmur - Respiratory Respiratory: No respiratory distress, Clear bilaterally - Abdomen Abdomen: Soft, Non tender, Other (obese) - Back Back: No CVA TTP, No spinal TTP - Derm Derm: Normal color, Warm and dry, No rash - Extremities Extremities: No deformity, No edema - Neuro Neuro: Alert and oriented X 3, No motor deficit, No sensory deficit, Normal speech Eye Opening: Spontaneous Motor: Obeys Commands Verbal: Oriented GCS Score: 15 - Psych Psych: Other (mood is withdrawn and the affect is blunted) Results - EKG (time done) 1403 Rate: Rate (enter#) (70) Rhythm: NSR Ischemia: Other (ST elevation isolated to III. t wave inversions in precordial leads present previuosly ) Compare to prior EKG: Changed from prior EKG (SPT 02-04-17 rate has increased. ) Computer interpretation: Agree with computer - Rads (name of study) CT head without Radiology: Prelim report reviewed (Impression: No acute intracranial abnormality.), EMP read indepedently, See rad report - Vitals Vitals: Vital Signs - 24 hr 02/09/17 02/09/17 02/09/17 13:53 14:10 16:31 Temperature 35.9 C L 36.5 C Heart Rate 70 70 64 Respiratory 14 14 20 Rate Blood Pressure 125/77 110/67 126/84 H O2 Saturation 98 98 99 02/09/17 02/09/17 18:56 20:06 Temperature 36.5 C Heart Rate 93 69 Respiratory 16 15 Rate Blood Pressure 151/89 H 164/117 H O2 Saturation 99 100 Oxygen O2 Source Room air - Labs Labs: Laboratory Tests 02/09/17 02/09/17 02/09/17 14:10 14:10 14:10 WBC 4.4 L RBC 4.06 L Hgb 13.4 L Hct 39.8 L MCV 98.1 H MCH 32.9 H MCHC 33.5 RDW 16.2 H Plt Count 198 MPV 8.6 Neut # 2.5 Lymph # 1.4 L [place] # 0.5 Eos # 0.0 Baso # 0.1 Absolute Nucleated RBC 0.00 Nucleated RBC % 0.0 Sodium 141 Potassium 3.8 Chloride 105 Carbon Dioxide 26 Anion Gap 10.0 BUN 8 Creatinine 1.0 Estimated GFR (MDRD) 81 L Glucose 100 Lactic Acid 2.1 Calcium 8.9 Total Bilirubin 0.5 AST 23 ALT 17 Alkaline Phosphatase 48 Total Protein 5.5 L Albumin 3.9 Globulin 1.6 L Albumin/Globulin Ratio 2.4 H Lipase 22 Urine Color Urine Clarity Urine pH Ur Specific [place] Urine Protein Urine Glucose (UA) Urine Ketones Urine Occult Blood Urine Nitrite Urine Bilirubin Urine Urobilinogen Ur Leukocyte Esterase Ur Microscopic Review Urine Culture Comments Urine Opiates Screen Ur Oxycodone Screen Urine Methadone Screen Ur Propoxyphene Screen Ur Barbiturates Screen Ur Tricyclics Screen Ur Phencyclidine Scrn Ur Amphetamine Screen U Methamphetamines Scrn U Benzodiazepines Scrn Urine Cocaine Screen U Cannabinoids Screen 02/09/17 15:09 WBC RBC Hgb Hct MCV MCH MCHC RDW Plt Count MPV Neut # Lymph # [place] # Eos # Baso # Absolute Nucleated RBC Nucleated RBC % Sodium Potassium Chloride Carbon Dioxide Anion Gap BUN Creatinine Estimated GFR (MDRD) Glucose Lactic Acid Calcium Total Bilirubin AST ALT Alkaline Phosphatase Total Protein Albumin Globulin Albumin/Globulin Ratio Lipase Urine Color YELLOW Urine Clarity CLEAR Urine pH 6.0 Ur Specific [place] >=1.030 H Urine Protein TRACE Urine Glucose (UA) NEGATIVE Urine Ketones TRACE Urine Occult Blood TRACE-INTA Urine Nitrite NEGATIVE Urine Bilirubin NEGATIVE Urine Urobilinogen 0.2 (NORMAL) Ur Leukocyte Esterase NEGATIVE Ur Microscopic Review NOT INDICATED Urine Culture Comments NOT INDICATED Urine Opiates Screen POSITIVE H Ur Oxycodone Screen POSITIVE H Urine Methadone Screen NEGATIVE Ur Propoxyphene Screen NEGATIVE Ur Barbiturates Screen NEGATIVE Ur Tricyclics Screen NEGATIVE Ur Phencyclidine Scrn NEGATIVE Ur Amphetamine Screen NEGATIVE U Methamphetamines Scrn NEGATIVE U Benzodiazepines Scrn POSITIVE H Urine Cocaine Screen NEGATIVE U Cannabinoids Screen NEGATIVE PD MEDICAL DECISION MAKING - ED course Complexity details: reviewed old records, reviewed results, re-evaluated patient , considered differential, d/w patient - ED course ED course: This 46-year-old male presents to the emergency department with concerning findings of altered level of consciousness. After review of the patient's record and examination of the patient it is most concerning for excessive use of narcotic and benzodiazepine. The substances are found in the patient's urine tox screen. He is left to metabolize in his room and has a slow improvement in his level of consciousness. He denies intentional overdose. Denies any attempt to hurt himself. (Facundo Gill) Patient signed out to me by Dr. Gill, as of 8:30 at night he is not quite obtunded he wakes up briefly but falls immediately back to sleep. He admits he took too many oxycodone today, given that he is stable Narcan was considered but withheld as it will not change the overall outcome. Given that he has been here for 8 or so hours now and is still very altered I will call the hospitalist for observation. (Sandro Buck) Departure - Departure Disposition: ED Place in Observation Clinical Impression: Overdose of opiate or related narcotic Qualifiers: Encounter type: initial encounter Injury intent: undetermined intent Qualified Code(s): T40.604A - Poisoning by unspecified narcotics, undetermined, initial encounter Condition: Stable Instructions: ED Overdose Accidental Follow-Up: Lakshmi Talavera PA-C [Physician No Access] -
[2017-02-09] MEDS ORDERED: NALOXONE 0.4 MG/ML VIAL ONE (20:33)
--- NOTE | 2017-02-09 21:58 | HISTORY & PHYSICAL EXAMINATION ---
Chief Complaint - Chief Complaint Chief Complaint: AMS History of Present Illness - Admitted From Admitted From:: ED - History Obtained From Records Reviewed: yes History obtained from: ED and records Exam Limitations: Patient is somnolent - History of Present Illness HPI Comment/Other: 46-year-old male with a complicated past medical history including multiple visits to the emergency department for altered mental status related to narcotic overdose. He does have history of narcotic abuse as well as benzodiazepine abuse.Today the patient called the ambulance with chief complaint of knee pain. When the ambulance showed up to his house they found the patient on his knees and appeared Somnolent. He does appear to answer questions appropriately and appears to be oriented drifts off to sleep relatively easily and has some dysarthric speech.Review of the patient's past medical record here at [facility], and on his EMILY, form indicate an issue with prescription controlled substances.In addition the patient does have hypertrophic cardiomyopathy and a pacemaker in place. He is no help in the history and indicates he gets cataplexy periodically. History - Past Medical History Cardiovascular: reports: Hypertension, High cholesterol Respiratory: reports: Asthma, Shortness of breath Neuro: reports: Headache/migraine Endocrine/Autoimmune: reports: None GI: reports: None, Crohn's disease, Other : reports: None HEENT: reports: None, Other Psych: reports: Depression, Anxiety, Post traumatic stress disorder, Other Musculoskeletal: reports: Osteoarthritis, Fibromyalgia, Fatigue, Chronic back pain Derm: reports: Eczema MRSA Hx?: No - Past Surgical History General: reports: Appendectomy Cardiovascular: reports: Other HEENT: reports: Cataracts - POLST Patient has POLST: No Meds/Allgy - Home Medications Home Medications: Ambulatory Orders Medication Instructions Recorded Confirmed Pregabalin [Lyrica] 300 mg PO BID 05/14/14 02/09/17 sulfaSALAzine [Sulfasalazine] 1,500 mg PO BID 06/10/14 02/09/17 Albuterol Sulfate [Proair Hfa 2 puffs INH Q6HR PRN 07/18/14 02/09/17 Inhaler] Meclizine HCl 25 mg PO Q6H PRN #30 tablet 01/06/15 02/09/17 Promethazine [Phenergan] 25 - 50 mg PO Q6H PRN #30 tab 01/06/15 02/09/17 Alprazolam [Xanax] 1 mg PO BID 10/19/16 02/09/17 Divalproex Sodium [Depakote] 250 mg PO BID 10/19/16 02/09/17 Oxycodone HCl/Acetaminophen 1 each PO BID PRN 10/19/16 02/09/17 [Percocet 10-325 mg Tablet] tiZANidine [Zanaflex] 8 mg PO TID 10/19/16 02/09/17 Verapamil HCl [Verapamil ER] 120 mg PO DAILY 02/04/17 02/09/17 - Allergies Allergies/Adverse Reactions: Allergies Allergy/AdvReac Type Severity Reaction Status Date / Time amitriptyline [Amitriptyline] Allergy Mild Anxiety Verified 02/04/17 13:48 codeine [Codeine] Allergy Mild Hives Verified 02/04/17 13:48 telmisartan [From Micardis] Allergy Mild Hives Verified 02/04/17 13:48 venom-honey bee Allergy Anaphylaxis Verified 02/04/17 13:48 [bee venom (honey bee)] lisinopril AdvReac Anxiety Verified 02/04/17 13:48 NSAIDS (Non-Steroidal AdvReac Emesis Verified 02/04/17 13:48 Anti-Inflamma tramadol HCl * [From Ultram] AdvReac Unknown Verified 02/04/17 13:48 Ghost peppers Allergy Anaphylaxis Uncoded 02/04/17 13:48 squash Allergy Anaphylaxis Uncoded 02/04/17 13:48 [email or web address] Allergy Anaphylaxis Uncoded 02/04/17 13:48 Review of Systems - Constitutional Constitutional: reports: Weakness. denies: Fatigue, Fever, Chills, Malaise - Eyes Eyes: denies: Blurred vision - Ears, Nose & Throat Ears, Nose & Throat: denies: Tinnitus - Cardiovascular Cariovascular: denies: Irregular heart rate, Palpitations, Chest pain, Edema - Respiratory Respiratory: denies: Cough, Sputum production, Wheezing, Snoring - Gastrointestinal Gastrointestinal: denies: Abdominal pain - Genitourinary Genitourinary: denies: Dysuria - Musculoskeletal Musculoskeletal: denies: Muscle pain - Integumentary Integumentary: denies: Rash - Neurological Neurological: denies: General weakness - Psychiatric Psychiatric: denies: Depression, Anxiety, Suicidal - Endocrine Endocrine: denies: Polyuria Exam - Vital Signs Vital Signs: Vital Signs x48h Temp Pulse Resp BP Pulse Ox 02/09/17 20:06 69 15 164/117 H 100 02/09/17 18:56 36.5 C 93 16 151/89 H 99 02/09/17 16:31 36.5 C 64 20 126/84 H 99 02/09/17 14:10 70 14 110/67 98 - Physical Exam General Appearance: positive: Lethargic Eyes Bilateral: positive: Normal inspection, PERRL, EOMI ENT: positive: ENT inspection nml, Pharynx nml, No signs of dehydration Neck: positive: Nml inspection, Thyroid nml, No JVD, Trachea midline. negative : Thyromegaly Respiratory: positive: Chest non-tender, No respiratory distress, Breath sounds nml Cardiovascular: positive: Regular rate & rhythm, No murmur, No gallop. negative : Tachycardia, Gallop/S4 Peripheral Pulses: positive: 2+ Abdomen: positive: Non-tender, No organomegaly, Nml bowel sounds, No distention Back: positive: Nml inspection, CVA tenderness (R) Skin: positive: Color nml, No rash, Warm Extremities: positive: Non-tender, Pedal edema. negative: Calf tenderness, Joint swelling, Xenia's sign/cords Neurologic/Psychiatric: positive: Other (somnolent and sleepy) Conclusion/Plan - Problem List (3) HTN (hypertension) Qualifiers: Hypertension type: essential hypertension Qualified Code(s): I10 - Essential (primary) hypertension (4) Overdose of opiate or related narcotic Qualifiers: Encounter type: initial encounter Injury intent: undetermined intent Qualified Code(s): T40.604A - Poisoning by unspecified narcotics, undetermined, initial encounter - Lab Results Fish Bones: 02/09/17 14:10 02/09/17 14:10 - Diagnostic Imaging Results Diagnostic Imaging Results: positive: Final report reviewed - EKG Results EKG Interpreted Independently: Yes - Other Other Results/Comments: Admit to med/surg for opiate and benzodiazepine induced encephalopathy with accidental overdose of narcotics seen on UDS. Patient does not appear to be hypoxemic or needing intubation, however, ED MD was not convinced his lethary would resolve within 24 hrs prompting an OBS admission. Neurocks per shift. Hold all home meds for now which are alot, "polypharmacy". Would have SW to assist with patient's possible underlying mental disorder with prescription substance abuse and the need to wean off multiple meds. Hx HOCM with a PM, CPAP for GABBY. IVF's for now. BP control. Aspiration precautions. Correct all lytes. DVT/GI ppx. Total time: 70 min Billing: OBS-High Issues/Core Measures - Anticipated LOS Anticipated Stay Length: Less than 2 midnights - DVT/VTE - Prophylaxis VTE/DVT Device ordered at admit?: No VTE/DVT Prophylaxis med ordered at admit?: Yes - AMI - Statin at Admit Aspirin Prescribed on Admit: No
[2017-02-09] MEDS ORDERED: LACTATED RINGERS 1,000 ML IV SCH (22:00)
[2017-02-09] MEDS ORDERED: METOPROLOL 5 MG/5 ML VIAL IVP PRN (22:04)
[2017-02-10] MEDS ORDERED: hydrALAZINE INJ 20 MG/ML VIAL IVP PRN ×2 (00:46→00:51)
[2017-02-10] MEDS ORDERED: cloNIDine 0.2 MG PATCH TOP SCH (01:00)
[2017-02-10] MEDS: SODIUM CHLORIDE FLUSH 0.9% 10 ML SYRINGE IVP SCH ×4 (01:10→15:52)
[2017-02-10] MEDS ORDERED: cloNIDine 0.3 MG PATCH TOP ONE (01:50)
[2017-02-10] MEDS ORDERED: methylPREDNISolone SUCCINATE 125 MG/2 ML VIAL IVP STA (02:36)
--- NOTE | 2017-02-10 02:43 | PROVIDER PROGRESS NOTE ---
Technical Systems Architect Note - Technical Systems Architect Note Technical Systems Architect Note: Patient was found to be SO with scattered wheezing, Hypertensive with sbp>180 and dbp>110, was started on a clonidine patch 0.2 mg TD and IV hydralaine prn with parameters, has been on LR running @100 ml/hr. However patient has a hx HOCM with CHF and would need Lasix since has some marginal edema BLLE, trace and with no overt rales, but may be fluid overloaded? Place on nitropatch 0.4 mg to afterload reduce him and morphine to decrease pulmonary edema. Patient has a PM, obtain a 12 lead ecg. C/o headaches and neck pain is currently more lucid now but has not wanted to eat or initiate feedings.
[2017-02-10] MEDS ORDERED: NITROGLYCERIN 0.4 MG/HR PATCH TOP SCH (03:00)
[2017-02-10] MEDS ORDERED: DIVALPROEX ER 250 MG TABLET PO SCH (03:00)
[2017-02-10] MEDS: MORPHINE 2 MG/ML SYRINGE IVP PRN ×3 (03:06→08:52)
[2017-02-10] MEDS: SODIUM CHLORIDE FLUSH 0.9% 10 ML SYRINGE IVP PRN ×2 (03:07→23:58)
[2017-02-10] MEDS: FUROSEMIDE 40 MG/4 ML VIAL IVP SCH ×3 (03:08→14:15)
[2017-02-10] MEDS ORDERED: LACTATED RINGERS 1,000 ML IV SCH (03:16)
[2017-02-10] MEDS: IPRATROPIUM/ALBUTEROL 3 ML NEB INH SCH ×3 (03:20→07:52)
--- NOTE | 2017-02-10 03:22 | XRAY Preliminary Report ---
Exam: XR CHEST 1 VIEW IMPRESSION: 1. No acute abnormality seen in the chest. [facility] SITE ID: [id number]
--- NOTE | 2017-02-10 03:24 | XRAY Report ---
EXAM: CHEST RADIOGRAPHY EXAM DATE: 02/10/2017 02:53 AM. CLINICAL HISTORY: Shortness of breath. History of congestive heart failure. COMPARISON: 12/31/2016. TECHNIQUE: 1 view. FINDINGS: Lungs/Pleura: No alveolar consolidation or pleural effusion. No pneumothorax. Mediastinum: Heart size normal to upper normal. Other: None. IMPRESSION: 1. No acute abnormality seen in the chest. [facility] Referring Provider Line: [phone] SITE ID: [id number]
[2017-02-10] MEDS: BUTALB/ACETAM/CAFF 50/325/40MG TABLET PO PRN ×4 (04:22→23:58)
[2017-02-10] MEDS: ONDANSETRON 4 MG/2 ML VIAL IVP PRN ×3 (04:35→23:58)
[2017-02-10] MEDS: PANTOPRAZOLE 40 MG TABLET PO SCH (07:03)
[2017-02-10] MEDS: POLYETHYLENE GLYCOL 3350 17 GM PACKET PO SCH (08:53)
[2017-02-10] MEDS: ENOXAPARIN 40 MG/0.4 ML SYRINGE SUBQ SCH (08:53)
[2017-02-10] MEDS: NITROGLYCERIN SL 0.4 MG TABLET SL PRN ×3 (09:49→10:00)
[2017-02-10 11:01] LABS: HEMOGLOBIN A1C 0.5 g/dL
[2017-02-10 11:08] LABS: ALBUMIN/GLOBULIN RATIO 1.6 (1.0-2.2); BILIRUBIN,TOTAL 0.6 mg/dL (0.2-1.0); CALCIUM 9.4 mg/dL (8.5-10.3); CREATININE 1.1 mg/dL (0.6-1.2); POTASSIUM 3.1 mmol/L (3.5-5.0); TOTAL PROTEIN 6.8 g/dL (6.7-8.2)
[2017-02-10] MEDS ORDERED: PERFLUTREN LIPID MICROSPHERES 1.65 MG/1.5 ML VIAL IVP ONE (11:14)
[2017-02-10] MEDS: FLUTICASONE NASAL SPRAY NAS SCH (12:28)
[2017-02-10] MEDS ORDERED: ACETAMINOPHEN 325 MG TABLET PO PRN (12:29)
[2017-02-10] MEDS: OXYMETAZOLINE NASAL SPRAY NAS SCH ×2 (13:03→20:36)
[2017-02-10] MEDS ORDERED: IPRATROPIUM/ALBUTEROL 3 ML NEB INH PRN (14:53)
[2017-02-10] MEDS ORDERED: LACTATED RINGERS 500 ML IV ONE (15:20)
[2017-02-10] MEDS ORDERED: HYDROmorphone 0.5 MG/0.5 ML SYRINGE IVP ONE (15:21)
[2017-02-10] MEDS ORDERED: POTASSIUM CHLORIDE 20 MEQ TABLET PO ONE (15:22)
[2017-02-10] MEDS: MAGNESIUM OXIDE 400 MG TABLET PO SCH (15:53)
[2017-02-10] MEDS ORDERED: METOPROLOL TARTRATE 50 MG TABLET PO SCH ×2 (16:00→18:40)
[2017-02-10] MEDS: LACTATED RINGERS 1,000 ML IV SCH ×2 (16:32→20:33)
--- NOTE | 2017-02-10 17:43 | PROVIDER PROGRESS NOTE ---
Subjective - Prog Note Date Prog Note Date: 02/10/17 Prog Note Time: 17:41 - Subjective Pt reports feeling: No change Subjective: David notes to have an ongoing headache. He denies SOB, vomiting or a new cough. He also notes left calf pain/tenderness. Ultrasound and Echo ordered. Current Medications - Current Medications Current Medications: Active Medications Acetaminophen (Tylenol) 650 mg PO Q4HR PRN PRN Reason: Pain or Fever > 38C (100.4F) Last Admin: 02/10/17 13:01 Dose: 650 mg Acetaminophen/Butalbital/Caffeine (Fioricet) 1 tab PO Q4HR PRN PRN Reason: HEADACHE Last Admin: 02/10/17 14:14 Dose: 1 tab Albuterol/Ipratropium (Duoneb) 3 ml INH Q4HR PRN PRN Reason: Wheezing Aspirin (Ecotrin) 81 mg PO DAILY [facility] Clonidine HCl (Edmljonm-Vol-1) 1 patch TOP Q7D [facility] Last Admin: 02/10/17 01:53 Dose: 1 patch Divalproex Sodium (Depakote Er) 500 mg PO BID [facility] Enoxaparin Sodium (Lovenox) 40 mg SUBQ DAILY [facility] Last Admin: 02/10/17 08:53 Dose: 40 mg Fluticasone Propionate (Flonase) 1 sprays JUAN FRANCISCO DAILY [facility] Last Admin: 02/10/17 12:28 Dose: 1 spr Lactated Ringer's (Lr) 1,000 mls @ 150 mls/hr IV .Q6H40M [facility] Last Admin: 02/10/17 16:32 Dose: 500 mls/hr Magnesium Oxide (Mag Ox) 400 mg PO DAILYWM [facility] Last Admin: 02/10/17 15:53 Dose: 400 mg Metoprolol Tartrate (Lopressor) 100 mg PO BID [facility] Last Admin: 02/10/17 15:53 Dose: 100 mg Nitroglycerin (Nitrostat) 0.4 mg SL Q5MIN PRN PRN Reason: Chest Pain Last Admin: 02/10/17 10:00 Dose: 0.4 mg Ondansetron HCl (Zofran Inj) 4 mg IVP Q6HR PRN PRN Reason: Nausea / Vomiting Last Admin: 02/10/17 12:12 Dose: 4 mg Oxymetazoline HCl (Afrin) 2 sprays JUAN FRANCISCO BID [facility] Stop: 02/13/17 10:59 Last Admin: 02/10/17 13:03 Dose: 2 sprays Pantoprazole Sodium (Protonix) 40 mg PO QDAC [facility] Last Admin: 02/10/17 07:03 Dose: 40 mg Polyethylene Glycol (Miralax) 17 gm PO DAILY [facility] Last Admin: 02/10/17 08:53 Dose: 17 gm Prazosin HCl (Minipress) 2 mg PO DAILY [facility] Prazosin HCl (Minipress) 4 mg PO QPM [facility] Pregabalin (Lyrica) 300 mg PO BID [facility] Sodium Chloride (Normal Saline Flush 0.9%) 10 ml IVP PRN PRN PRN Reason: NEEDED PER PROVIDER ORDERS Last Admin: 02/10/17 03:07 Dose: 10 ml Sodium Chloride (Normal Saline Flush 0.9%) 10 ml IVP Q8HR [facility] Last Admin: 02/10/17 15:52 Dose: 10 ml HOME MEDS: Pregabalin [Lyrica] 300 mg PO BID 05/14/14 sulfaSALAzine [Sulfasalazine] 1,000 mg PO TID 06/10/14 Albuterol Sulfate [Proair Hfa Inhaler] 2 puffs INH Q6HR PRN 07/18/14 Alprazolam [Xanax] 2 mg PO DAILY 10/19/16 Divalproex Sodium [Depakote] 500 mg PO BID 10/19/16 Oxycodone HCl/Acetaminophen [Percocet 10-325 mg Tablet] 1 each PO TID PRN tiZANidine [Zanaflex] 8 mg PO TID PRN 10/19/16 Verapamil HCl [Verapamil ER] 120 mg PO DAILY 02/04/17 ALPRAZolam [Alprazolam] 4 mg PO QPM 02/10/17 Aspirin [Aspirin EC] 81 mg PO DAILY 02/10/17 Budesonide/Formoterol Fumarate [Symbicort 160-4.5 Mcg Inhaler] 2 puffs INH BID 02/10/17 Duloxetine HCl [Duloxetine HCl] 60 mg PO BID 02/10/17 Ferrous Gluconate 324 mg PO DAILY 02/10/17 Metoprolol Succinate [Toprol Xl] 100 mg PO DAILY 02/10/17 Milnacipran HCl [Savella] 50 mg PO BID 02/10/17 Nicotine [Nicotine Patch] 14 mg TOP DAILY 02/10/17 Nitroglycerin [Nitroglycerin] 1 spray SL Q5M PRN 02/10/17 Prazosin HCl 2 mg PO DAILY 02/10/17 Prazosin HCl 4 mg PO QPM 02/10/17 raNITIdine [Zantac] 150 mg PO BID 02/10/17 Norvasc is on home med list, but will be discontinued upon discharge as it is contraindicated in hypertrophic cardiomyopathy. Objective - Vital Signs/Intake & Output Reviewed Vital Signs: Yes Vital Signs: Vital Signs x48h Temp Pulse Pulse Resp BP BP Pulse Ox 02/10/17 16:00 36.7 C 89 20 140/79 H 95 02/10/17 14:17 99 152/106 H 02/10/17 12:09 36.6 C 102 H 22 165/91 H 94 02/10/17 10:00 118 H 146/83 H 02/10/17 09:54 114 H 171/95 H 02/10/17 09:49 111 H 172/94 H Intake & Output: Intake & Output 02/07/17 02/08/17 02/09/17 02/10/17 23:59 23:59 23:59 23:59 Intake Total 1678.75 Output Total 5980 Balance -4301.25 - Objective General Appearance: positive: Alert, Moderate distress, Anxious Eyes Bilateral: positive: Normal inspection ENT: positive: ENT inspection nml, Pharynx nml, No signs of dehydration Neck: positive: Nml inspection, No JVD, Trachea midline, Stiff neck Respiratory: positive: Chest non-tender, No respiratory distress, Wheezes, Rhonchi (coarse crackles, bilateral lower lobes.) Cardiovascular: positive: No gallop, Irregularly irregular, Tachycardia, Systolic murmur, Decreased pulse(s) Peripheral Pulses: 1+ Radial (R), 1+ Radial (L) Abdomen: positive: Nml bowel sounds, Guarding, Hepatomegaly, Other (obese, rounded.) Back: positive: Nml inspection Skin: positive: Color nml, No rash, Warm, Dry Extremities: positive: Non-tender, No pedal edema, Calf tenderness (left), Joint swelling Neurologic/Psychiatric: positive: Oriented x3, CN's nml (2-12), Motor nml, Sensation nml, Depressed mood/affect Reflexes: Bicep (R): 3+, Bicep (L): 3+ - Lab Results Fish Bones: 02/09/17 14:10 02/10/17 10:39 Other Labs: Lab Results x24hrs 02/10/17 02/10/17 02/10/17 Range/Units 15:54 10:39 10:39 D-Dimer (200.0-255.0) ng/mL Sodium 141 (135-145) mmol/L Potassium 3.1 L (3.5-5.0) mmol/L Chloride 98 L (101-111) mmol/L Carbon Dioxide 27 (21-32) mmol/L Anion Gap 16.0 H (6-13) BUN 8 (6-20) mg/dL Creatinine 1.1 (0.6-1.2) mg/dL Estimated GFR (MDRD) 73 L (>89) Glucose 187 H (70-100) mg/dL Glycated Hemoglobin 5.0 (4.6-6.2) % Estim Average Glucose 97 (70-100) Calcium 9.4 (8.5-10.3) mg/dL Magnesium (1.7-2.8) mg/dL Total Bilirubin 0.6 (0.2-1.0) mg/dL AST 29 (10-42) IU/L ALT 19 (10-60) IU/L Alkaline Phosphatase 53 (42-121) IU/L Troponin I < 0.04 (<0.49) ng/mL B-Natriuretic Peptide (5-100) pg/mL Total Protein 6.8 (6.7-8.2) g/dL Albumin 4.2 (3.2-5.5) g/dL Globulin 2.6 (2.1-4.2) g/dL Albumin/Globulin Ratio 1.6 (1.0-2.2) TSH (0.34-5.60) uIU/mL 02/10/17 02/10/17 02/10/17 Range/Units 10:39 10:39 10:39 D-Dimer (200.0-255.0) ng/mL Sodium (135-145) mmol/L Potassium (3.5-5.0) mmol/L Chloride (101-111) mmol/L Carbon Dioxide (21-32) mmol/L Anion Gap (6-13) BUN (6-20) mg/dL Creatinine (0.6-1.2) mg/dL Estimated GFR (MDRD) (>89) Glucose (70-100) mg/dL Glycated Hemoglobin (4.6-6.2) % Estim Average Glucose (70-100) Calcium (8.5-10.3) mg/dL Magnesium 1.8 (1.7-2.8) mg/dL Total Bilirubin (0.2-1.0) mg/dL AST (10-42) IU/L ALT (10-60) IU/L Alkaline Phosphatase (42-121) IU/L Troponin I < 0.04 (<0.49) ng/mL B-Natriuretic Peptide (5-100) pg/mL Total Protein (6.7-8.2) g/dL Albumin (3.2-5.5) g/dL Globulin (2.1-4.2) g/dL Albumin/Globulin Ratio (1.0-2.2) TSH 0.59 (0.34-5.60) uIU/mL 02/10/17 02/10/17 Range/Units 02:51 02:51 D-Dimer 223.1 (200.0-255.0) ng/mL Sodium (135-145) mmol/L Potassium (3.5-5.0) mmol/L Chloride (101-111) mmol/L Carbon Dioxide (21-32) mmol/L Anion Gap (6-13) BUN (6-20) mg/dL Creatinine (0.6-1.2) mg/dL Estimated GFR (MDRD) (>89) Glucose (70-100) mg/dL Glycated Hemoglobin (4.6-6.2) % Estim Average Glucose (70-100) Calcium (8.5-10.3) mg/dL Magnesium (1.7-2.8) mg/dL Total Bilirubin (0.2-1.0) mg/dL AST (10-42) IU/L ALT (10-60) IU/L Alkaline Phosphatase (42-121) IU/L Troponin I (<0.49) ng/mL B-Natriuretic Peptide 159 H (5-100) pg/mL Total Protein (6.7-8.2) g/dL Albumin (3.2-5.5) g/dL Globulin (2.1-4.2) g/dL Albumin/Globulin Ratio (1.0-2.2) TSH (0.34-5.60) uIU/mL - Diagnostic Imaging Diagnostic Imaging Results: positive: Prelim report reviewed, Final report reviewed Assessment/Plan - Problem List (1) Chronic migraine without aura, not intractable, without status migrainosus Impression: Patient has a strong history and cannot tell me his triggers for such episodes. He notes his head aches are mid forehead in the frontal sinus region. Plan: Afrin spray, and flonase prescribed. Will suggest a netti-pot to be used daily at home. (2) Essential (primary) hypertension Impression: Blood pressure was 157/91, and mostly elevated since his admission. One of patient's home medications include Norvasc which is not ideal for hypertrophic cardiomyopathy. Plan: Increased metoprolol for both HTN and tachycardia and plans to discontinue Norvasc for home use. (3) Personal history of other diseases of circulatory system Impression: Echocardiogram from today notes a worsening of patient's hypertrophic cardiomyopathy as evidenced by a LV decreased cavity size, severe concentric LV hypertrophy, LV systolic function is hyperdynamic with an ED of greater than 75% . There is a mid cavitary obstruction of the left ventricle. There is a left ventricular outflow tract gradient without valsalva. Max 35 mmHg. Plan: Medication management and cardiac rehab will be recommended. (4) Opiate abuse, continuous Impression: Chronic use with no plans of cutting back or finding other ways to manage pain. Plan: Encourage water therapy with daily swimming. (5) Sedative, hypnotic or anxiolytic abuse Impression: Chronic benzo use with very large prescribed doses. This is of concern due to the potential of addiction. Denies other illicit drug use. Plan: Encourage activity and especially cardiac rehab. (6) Morbid (severe) obesity due to excess calories Impression: Patient has an astounding BMI of 46.2 and current weight is 138.89kg. This is a chronic condition. Plan: Gingerly educate on increasing activity level, cardiac rehab will be recommended. (7) GABBY (obstructive sleep apnea) Impression: History of non-compliance. Plan: Oxygen to keep oxygen greater than 92%. (8) Other chest pain Impression: Patient came to the ED with this complaint, similar to many ED visits. Likely caused by mis-managed hypertrophic cardiomyopathy.
--- NOTE | 2017-02-10 18:34 | Ultrasound Preliminary Report ---
Exam: US DUPLEX EXT VEINS LEFT IMPRESSION: Negative for deep venous thrombosis in left lower extremity [facility] SITE ID: [id number]
--- NOTE | 2017-02-10 18:37 | Ultrasound Report ---
EXAM: LEFT LOWER EXTREMITY VENOUS ULTRASOUND EXAM DATE: 02/10/2017 03:51 PM. CLINICAL HISTORY: Left calf pain. COMPARISON: None. TECHNIQUE: Real-time sonographic vascular imaging was performed by the coconut jelly roller through the lower extremity utilizing both color-flow and Doppler spectral analysis. Multiple sales service representative static dharmesh ges were saved for review. FINDINGS: Common Femoral Vein (CFV): Normal. CFV-GSV Junction: Normal. Profunda Femoral Vein (PFV): Normal. Femoral Vein (FV) Prox: Normal. Femoral Vein (FV) Mid: Normal. Femoral Vein (FV) Dist: Normal. Popliteal Vein: Normal. Posterior Tibial Veins: Normal. Peroneal Veins: Normal. Other: None. IMPRESSION: Negative for deep venous thrombosis in left lower extremity [facility] Referring Provider Line: [phone] SITE ID: [id number]
[2017-02-10] MEDS: HYDROmorphone 0.5 MG/0.5 ML SYRINGE IVP PRN (20:34)
[2017-02-10] MEDS: PREGABALIN 100 MG CAPSULE PO SCH (20:35)
[2017-02-10] MEDS: DIVALPROEX ER 250 MG TABLET PO SCH (20:56)
[2017-02-10] MEDS ORDERED: PRAZOSIN 1 MG CAPSULE PO SCH (21:00)
[2017-02-11] MEDS: HYDROmorphone 0.5 MG/0.5 ML SYRINGE IVP PRN ×2 (00:27→04:52)
[2017-02-11] MEDS: SODIUM CHLORIDE FLUSH 0.9% 10 ML SYRINGE IVP PRN ×2 (00:28→04:53)
[2017-02-11] MEDS: LACTATED RINGERS 1,000 ML IV SCH (03:39)
[2017-02-11] MEDS: SODIUM CHLORIDE FLUSH 0.9% 10 ML SYRINGE IVP SCH (05:21)
[2017-02-11] MEDS: PANTOPRAZOLE 40 MG TABLET PO SCH (06:48)
[2017-02-11] MEDS: POLYETHYLENE GLYCOL 3350 17 GM PACKET PO SCH (08:07)
[2017-02-11] MEDS: ENOXAPARIN 40 MG/0.4 ML SYRINGE SUBQ SCH (08:07)
[2017-02-11] MEDS: METOPROLOL SUCCINATE 50 MG TABLET PO SCH ×2 (08:08→08:11)
[2017-02-11] MEDS: PREGABALIN 100 MG CAPSULE PO SCH (08:08)
[2017-02-11] MEDS: MAGNESIUM OXIDE 400 MG TABLET PO SCH (08:09)
[2017-02-11] MEDS: OXYMETAZOLINE NASAL SPRAY NAS SCH (08:10)
[2017-02-11] MEDS: FLUTICASONE NASAL SPRAY NAS SCH (08:10)
[2017-02-11] MEDS: DIVALPROEX ER 250 MG TABLET PO SCH (08:12)
--- NOTE | 2017-02-11 08:47 | Discharge Plan ---
Discharge Plan Disposition: 01 Home, Self Care Condition: Good Prescriptions: Fluticasone [Flonase] 1 sprays JUAN FRANCISCO DAILY #5 bottle Metoprolol Succinate [Toprol Xl] 100 mg PO BID #60 tab.er.24h Diet: Cardiac Activity Restrictions: No Restrictions Shower Restrictions: No Driving Restrictions: No Weight Bearing: Full Weight Instruction Topics: ED Overdose Accidental Additional Instructions or Follow Up instructions: You were admitted for further evaluation of your chest pain and your decreased level of consciousness. An echocardiogram was completed and compared to a previous one that was done in October 2016. Unfortunately, it shows worsening hypertrophic cardiomyopathy. This means that your left ventricle, which is the main pumping chamber of your heart that supplies your body with fresh oxygenated blood, has a wall that is very thick and the thickness has increased since the last time we checked it in October of 2016. This means that your heart rate should remain low in order for your ventricle to fill up since the heart wall is very thick, which makes the cavity smaller. You should avoid diuretics, which can lead to an under filled heart. Medicines like Norvasc make the heart hyperdynamic, which also is not ideal for this condition. STOP taking Norvasc (amlodipine). Take all other medications as prescribed. Wear your home CPAP while you are sleeping for your obstructive sleep apnea. I recommend that you attempt to use less pain and anxiety medication. A pain clinic may help facilitate this. Recommend Cardiac Rehab to maintain or improve heart function. Please see your PCP in 3-5 days as a follow up to this hospital stay. Follow up with your previously scheduled Soda Fountain Operator (regarding LOOP recorder). For further treatment of your migraines, I suggest a daily Neti-pot treatment and to continue Flonase spray. Follow-Up Care: [facility] - Cardiac No Smoking: If you smoke, Please STOP! Call for help. Follow-up with: Lakshmi Talavera PA-C [Physician No Access] -
[2017-02-11] MEDS ORDERED: PRAZOSIN 1 MG CAPSULE PO SCH (09:00)
[2017-02-11] MEDS ORDERED: ASPIRIN EC 81 MG TABLET PO SCH (09:00)
--- NOTE | 2017-02-11 09:16 | DISCHARGE SUMMARY ---
Discharge Summary Admit Date: 02/09/17 Discharge Date: 02/11/17 Discharging Provider: VANNA Urrutia Primary Care Provider: Lakshmi Talavera Code Status: Attempt Resuscitation Condition at Discharge: Good Discharge Disposition: 01 Home, Self Care - DIAGNOSES Admission Diagnoses: Poisoning by other opioids, accidental (unintentional), initial encounter ( T40.2X1A) Encephalopathy, unspecified (G93.40) Opioid abuse, uncomplicated (F11.10) Sedative, hypnotic or anxiolytic abuse, uncomplicated (F13.10) Essential (primary) hypertension (I10) Personal history of other diseases of the circulatory system (Z86.79) Presence of cardiac pacemaker (Z95.0) Morbid (severe) obesity due to excess calories (E66.01) Obstructive sleep apnea (adult) (pediatric) (G47.33) Discharge Diagnoses with Status of Each Condition: Hx of hypertrophic cardiomyopathy (Z86.79) -ongoing, stable. Opiate abuse, continuous (F11.10) -ongoing, needs improvement. Suggest weaning in D/C instructions or as per PCP. Benzodiazepine abuse, continuous (F13.10) -ongoing, needs improvement. Suggest weaning in D/C instructions or as per PCP. Morbid obesity (E66.01) GABBY (obstructive sleep apnea) (G47.33) -ongoing, needs improvement. Recommendations given. Chronic migraine without aura (G43.709) -ongoing, stable. Hypertension (I10) -ongoing, controlled. Atypical chest pain (R07.89)-ongoing, controlled. - HPI History of Present Illness: David Blanco is a morbidly obese, sedentary 46-year-old male with a complicated past medical history including multiple visits to the emergency department for altered mental status related to narcotic overdose, hypertrophic cardiomyopathy, GABBY, opiod and benzo dependence, HTN, and chronic migraines.Today the patient called the ambulance with chief complaint of knee pain. When the ambulance showed up to his house they found the patient on his knees and appeared Somnolent. He does appear to answer questions appropriately and appears to be oriented drifts off to sleep relatively easily and has some dysarthric speech. In addition the patient does have hypertrophic cardiomyopathy and a LOOP recorder in place per cardiology. He will be admitted to observation for tachycardia, uncontrolled hypertension, and chest pain management. - HOSPITAL COURSE Hospital Course: Patient was placed in observation for further work up with his chest pain, headaches, and slight EKG changes. An echocardiogram was completed and showed a worsening hypertrophic cardiomyopathy since his last Echo in 10/2016. Medications were adjusted, and he was observed on telemetry. A LLE venous doppler US was completed and negative for complaints of left calf pain. He slept and ate well. He requested IV dilaudid overnight, and did not have his CPAP from home for his GABBY. He was transported via taxi service in stable conditions with instructions regarding medication changes, follow ups, including Cardiology for his newly placed LOOP recording device and new results of latest Echo. - ALLERGIES Allergies/Adverse Reactions: Allergies Allergy/AdvReac Type Severity Reaction Status Date / Time amitriptyline [Amitriptyline] Allergy Mild Anxiety Verified 02/04/17 13:48 codeine [Codeine] Allergy Mild Hives Verified 02/04/17 13:48 telmisartan [From Micardis] Allergy Mild Hives Verified 02/04/17 13:48 venom-honey bee Allergy Anaphylaxis Verified 02/04/17 13:48 [bee venom (honey bee)] lisinopril AdvReac Anxiety Verified 02/04/17 13:48 NSAIDS (Non-Steroidal AdvReac Emesis Verified 02/04/17 13:48 Anti-Inflamma tramadol HCl * [From Ultram] AdvReac Unknown Verified 02/04/17 13:48 Ghost peppers Allergy Anaphylaxis Uncoded 02/04/17 13:48 squash Allergy Anaphylaxis Uncoded 02/04/17 13:48 zuccinni Allergy Anaphylaxis Uncoded 02/04/17 13:48 - MEDICATIONS Home Medications: Ambulatory Orders Medication Instructions Recorded Confirmed Pregabalin [Lyrica] 300 mg PO BID 05/14/14 02/09/17 sulfaSALAzine [Sulfasalazine] 1,000 mg PO TID 06/10/14 02/10/17 Albuterol Sulfate [Proair Hfa 2 puffs INH Q6HR PRN 07/18/14 02/09/17 Inhaler] Meclizine HCl 25 mg PO Q6H PRN #30 tablet 01/06/15 02/09/17 Promethazine [Phenergan] 25 - 50 mg PO Q6H PRN #30 tab 01/06/15 02/09/17 Alprazolam [Xanax] 2 mg PO DAILY 10/19/16 02/10/17 Divalproex Sodium [Depakote] 500 mg PO BID 10/19/16 02/10/17 Oxycodone HCl/Acetaminophen 1 each PO TID PRN 10/19/16 02/10/17 [Percocet 10-325 mg Tablet] tiZANidine [Zanaflex] 8 mg PO TID PRN 10/19/16 02/09/17 Verapamil HCl [Verapamil ER] 120 mg PO DAILY 02/04/17 02/09/17 ALPRAZolam [Alprazolam] 4 mg PO QPM 02/10/17 02/10/17 Aspirin [Aspirin EC] 81 mg PO DAILY 02/10/17 02/10/17 Budesonide/Formoterol Fumarate 2 puffs INH BID 02/10/17 02/10/17 [Symbicort 160-4.5 Mcg Inhaler] Duloxetine HCl 60 mg PO BID 02/10/17 02/10/17 Ferrous Gluconate 324 mg PO DAILY 02/10/17 02/10/17 Milnacipran HCl [Savella] 50 mg PO BID 02/10/17 02/10/17 Nicotine [Nicotine Patch] 14 mg TOP DAILY 02/10/17 02/10/17 Nitroglycerin 1 spray SL Q5M PRN 02/10/17 02/10/17 Prazosin HCl 2 mg PO DAILY 02/10/17 02/10/17 Prazosin HCl 4 mg PO QPM 02/10/17 02/10/17 raNITIdine [Zantac] 150 mg PO BID 02/10/17 02/10/17 Fluticasone [Flonase] 1 sprays JUAN FRANCISCO DAILY #5 bottle 02/11/17 Metoprolol Succinate [Toprol Xl] 100 mg PO BID #60 tab.er.24h 02/11/17 - PHYSICAL EXAM AT DISCHARGE General Appearance: positive: No acute distress Eyes Bilateral: positive: Normal inspection ENT: positive: ENT inspection nml, Pharynx nml, No signs of dehydration Neck: positive: Nml inspection, Thyroid nml, No JVD, Trachea midline, Stiff neck Respiratory: positive: Chest non-tender, No respiratory distress, Other ( diminshed.) Cardiovascular: positive: Irregularly irregular, Systolic murmur, Decreased pulse(s) Peripheral Pulses: positive: 1+ Abdomen: positive: Non-tender, Hepatomegaly, Abnml bowel sounds Back: positive: Nml inspection Skin: positive: Color nml, No rash, Warm, Dry Extremities: positive: Pedal edema, Calf tenderness, Joint swelling Neurologic/Psychiatric: positive: Oriented x3, CN's nml (2-12), Weakness, Sensory loss, Depressed mood/affect Reflexes: Bicep (R): 3+, Bicep (L): 3+ - LABS Result Diagrams: 02/09/17 14:10 02/10/17 10:39 - DIAGNOSTIC IMAGING Diagnostic Imaging Results: Final report reviewed Diagnostic Imaging Results Comments: Left shagufta doppler LLE 02/10/17: IMPRESSION: Negative for deep venous thrombosis in left lower extremity. Chest x-ray 02/10/17: FINDINGS: Lungs/Pleura: No alveolar consolidation or pleural effusion. No pneumothorax. Mediastinum: Heart size normal to upper normal. IMPRESSION: 1. No acute abnormality seen in the chest. Head CT 02/09/17: FINDINGS: Parenchyma: No intraparenchymal hemorrhage. No evidence of mass, midline shift, or CT findings of infarction. Hess-white differentiation is distinct. Extraaxial Spaces: Normal for age. No subdural or epidural collections identified. Ventricles: Normal in size and position. Sinuses and Orbits: Imaged paranasal sinuses, orbits, and mastoids show no significant abnormality. Bones: No evidence of fracture or calvarial defect. Other: Small incidental left parietal scalp calcification. IMPRESSION: No acute intracranial abnormality. Echocardiogram 02/10/17: Preliminary results. A worsening of patient's hypertrophic cardiomyopathy as evidenced by a LV decreased cavity size, severe concentric LV hypertrophy, LV systolic function is hyperdynamic with an ED of greater than 75%. There is a mid cavitary obstruction of the left ventricle. There is a left ventricular outflow tract gradient without valsalva. Max 35 mmHg. - FOLLOW UP Follow Up: STOP taking Norvasc (amlodipine). Recommend Cardiac Rehab to maintain or improve heart function. Please see your PCP in 3-5 days as a follow up to this hospital stay. Follow up with your previously scheduled Hogshead Dumper (regarding LOOP recorder). - TIME SPENT Time Spent in Discharge (Minutes): 60
[2017-02-11 12:03] VITALS: BP 144/94
== END 2017-02-11 12:30 | disposition home or self-care (01) ==
LOC: EDUNIT# → ED 13:51 → OBS 21:53
PROVIDERS: ADMIT Family Medicine; ATTEND Nurse Practitioner
DX: I42.2 Other hypertrophic cardiomyopathy (principal); T40.2X1A Poisoning by other opioids, accidental (unintentional), initial encounter; T42.4X1A Poisoning by benzodiazepines, accidental (unintentional), initial encounter; G92 Toxic encephalopathy; F11.229 Opioid dependence with intoxication, unspecified; F13.229 Sedative, hypnotic or anxiolytic dependence with intoxication, unspecified; E66.01 Morbid (severe) obesity due to excess calories; Z68.42 Body mass index [BMI] 45.0-49.9, adult; G43.709 Chronic migraine without aura, not intractable, without status migrainosus; I10 Essential (primary) hypertension; R00.0 Tachycardia, unspecified; R07.89 Other chest pain; M79.662 Pain in left lower leg; F17.200 Nicotine dependence, unspecified, uncomplicated; G47.33 Obstructive sleep apnea (adult) (pediatric); E78.00 Pure hypercholesterolemia, unspecified; M54.9 Dorsalgia, unspecified; G89.29 Other chronic pain; J45.909 Unspecified asthma, uncomplicated; M79.7 Fibromyalgia; F43.10 Post-traumatic stress disorder, unspecified; F41.9 Anxiety disorder, unspecified; F32.9 Major depressive disorder, single episode, unspecified; Z95.0 Presence of cardiac pacemaker; Z79.51 Long term (current) use of inhaled steroids; Z79.899 Other long term (current) drug therapy; Z86.79 Personal history of other diseases of the circulatory system
CPT/HCPCS: 36415; 51701; 70450; 71010; 80053; 80306; 81003; 83036; 83605; 83690; 83735; 83880; 84443; 84484; 85025; 85379; 93005; 93306; 93971; 94640; 94664; 96361; 96372; 96374; 96375; 96376; 99285; A9270; G0378; J1170; J1650; J2270; J7120; J7620; Q9957; 81001; 87086; 99284

== ENCOUNTER 2017-02-18 08:14 | Outpatient (CLI) | payer MEDICAID | END 2017-02-18 08:15 | disposition short-term general hospital (02) | LOC: EMS 08:14 | PROVIDERS: ATTEND Surgery | DX: R07.9 Chest pain, unspecified (principal) | CPT/HCPCS: A0425; A0427 ==

== ENCOUNTER 2017-03-14 08:02 | Emergency (ER) | payer MEDICAID ==
--- NOTE | 2017-03-14 08:14 | ED Physician Documentation ---
History of Present Illness - Stated complaint Stated Complaint: HEADACHE - Chief complaint Chief Complaint: Neuro - Additonal information Additional information: hx from pt and EMR 46 male well known to our ER hx hypertrophic cardiomyaopthy with loop recorder (PPM as previously noted in EMR), HTN, HLD, asthma, chrohns, mifraines, fibromyalgia, chronic pain, naroctic and benzo abuse (admitted in Dec for AMS 2/2 narcotic OD) to ED with a CALI typical of his migraines X 6 days L periorbital rad to rst of head throbbing photophobia gradually worsening no new numbness or weakness 9has int l arm numbness and weakness pre-existing before this CALI) no trauma no CO exposure no bloody thinners no fever or neck stiffness recent lower molar removal states he took percocet at home s relief states he cannot use imitrex 2/2 cardiac dz states usually in ER he gets toradol (can have IV despite EMR notation of all to NSAIDS) phenergan and dilaudid Review of Systems Constitutional: denies: Fever, Chills Eyes: reports: Photophobia Throat: reports: Dental pain / toothache (recent molar removal) Cardiac: denies: Chest pain / pressure Respiratory: denies: Dyspnea GI: denies: Abdominal Pain Neurologic: reports: Headache. denies: Focal weakness, Numbness, Altered mental status, Head injury Endocrine: denies: Easy bruising / bleeding Immunocompromised: denies: Immunocompromised PD PAST MEDICAL HISTORY - Past Medical History Cardiovascular: Congestive heart failure, Hypertension, High cholesterol Respiratory: Asthma, Shortness of breath Neuro: Headache/migraine, Head injury, Motion sickness, Fainting Endocrine/Autoimmune: None GI: None, Crohn's disease, Other : None HEENT: None, Other Psych: Depression, Anxiety, Post traumatic stress disorder, Other Musculoskeletal: Osteoarthritis, Fibromyalgia, Fatigue, Chronic back pain Derm: Eczema - Past Surgical History Past Surgical History: Yes General: Appendectomy Cardiovascular: Other HEENT: Cataracts - Present Medications Home Medications: Ambulatory Orders Medication Instructions Recorded Confirmed Pregabalin [Lyrica] 300 mg PO BID 05/14/14 03/14/17 sulfaSALAzine [Sulfasalazine] 1,000 mg PO TID 06/10/14 03/14/17 Albuterol Sulfate [Proair Hfa 2 puffs INH Q6HR PRN 07/18/14 03/14/17 Inhaler] Meclizine HCl 25 mg PO Q6H PRN #30 tablet 01/06/15 03/14/17 Promethazine [Phenergan] 25 - 50 mg PO Q6H PRN #30 tab 01/06/15 03/14/17 Alprazolam [Xanax] 2 mg PO DAILY 10/19/16 03/14/17 Divalproex Sodium [Depakote] 500 mg PO BID 10/19/16 03/14/17 Oxycodone HCl/Acetaminophen 1 each PO TID PRN 10/19/16 03/14/17 [Percocet 10-325 mg Tablet] tiZANidine [Zanaflex] 8 mg PO TID PRN 10/19/16 03/14/17 Verapamil HCl [Verapamil ER] 120 mg PO DAILY 02/04/17 03/14/17 ALPRAZolam [Alprazolam] 4 mg PO QPM 02/10/17 03/14/17 Aspirin [Aspirin EC] 81 mg PO DAILY 02/10/17 03/14/17 Budesonide/Formoterol Fumarate 2 puffs INH BID 02/10/17 03/14/17 [Symbicort 160-4.5 Mcg Inhaler] Duloxetine HCl 60 mg PO BID 02/10/17 03/14/17 Ferrous Gluconate 324 mg PO DAILY 02/10/17 03/14/17 Milnacipran HCl [Savella] 50 mg PO BID 02/10/17 03/14/17 Nicotine [Nicotine Patch] 14 mg TOP DAILY 02/10/17 03/14/17 Nitroglycerin 1 spray SL Q5M PRN 02/10/17 03/14/17 Prazosin HCl 2 mg PO DAILY 02/10/17 03/14/17 Prazosin HCl 4 mg PO QPM 02/10/17 03/14/17 raNITIdine [Zantac] 150 mg PO BID 02/10/17 03/14/17 Fluticasone [Flonase] 1 sprays JUAN FRANCISCO DAILY #5 bottle 02/11/17 03/14/17 Metoprolol Succinate [Toprol Xl] 100 mg PO BID #60 tab.er.24h 02/11/17 03/14/17 - Allergies Allergies/Adverse Reactions: Allergies Allergy/AdvReac Type Severity Reaction Status Date / Time amitriptyline [Amitriptyline] Allergy Mild Anxiety Verified 03/14/17 08:09 codeine [Codeine] Allergy Mild Hives Verified 03/14/17 08:09 telmisartan [From Micardis] Allergy Mild Hives Verified 03/14/17 08:09 venom-honey bee Allergy Anaphylaxis Verified 03/14/17 08:09 [bee venom (honey bee)] lisinopril AdvReac Anxiety Verified 03/14/17 08:09 NSAIDS (Non-Steroidal AdvReac Emesis Verified 03/14/17 08:09 Anti-Inflamma tramadol HCl * [From Ultram] AdvReac Unknown Verified 03/14/17 08:09 Ghost peppers Allergy Anaphylaxis Uncoded 03/14/17 08:09 squash Allergy Anaphylaxis Uncoded 03/14/17 08:09 zuccinni Allergy Anaphylaxis Uncoded 03/14/17 08:09 - Social History Does the pt smoke?: Yes Smoking Status: Current every day smoker Does the pt drink ETOH?: No Does the pt have substance abuse?: No - Immunizations Immunizations are current?: Yes Immunizations: TDAP >10years/unknown, Other immun not current - POLST Patient has POLST: No PD ED PE NORMAL - Vitals Vital signs reviewed: Yes - General General: Alert and oriented X 3 - HEENT HEENT: PERRL (approx 6, no TA TTP, globes soft), EOMI, Other (tooth removal site healing well no dry socket or infection) - Neck Neck: Supple, no meningeal sign - Cardiac Cardiac: RRR - Respiratory Respiratory: No respiratory distress, Clear bilaterally - Abdomen Abdomen: Soft, Non tender - Derm Derm: Normal color - Neuro Neuro: Alert and oriented X 3, last code striper 2-12 intact, No motor deficit, No sensory deficit, Normal speech Results - Vitals Vitals: Vital Signs - 24 hr 03/14/17 03/14/17 08:05 09:36 Temperature 35.9 C L Heart Rate 89 73 Respiratory 19 12 Rate Blood Pressure 173/129 H 170/128 H O2 Saturation 95 95 Oxygen O2 Source Room air PD MEDICAL DECISION MAKING - ED course ED course: would prefer to avoid narcotics and suggested toradol phenergan and benadryl as well as nasal lidocaine - pt states it isn't going to work without dilaudid but is willing to try these meds first pt felt better ready to go home BP high - we offered to give him meds here but he prefers to home and take his own - states he will take them as soon as he gets home Departure - Departure Disposition: 01 Home, Self Care Clinical Impression: Migraine Qualifiers: Migraine type: unspecified Status migrainosus presence: without status migrainosus Intractability: not intractable Qualified Code(s): G43.909 - Migraine, unspecified, not intractable, without status migrainosus Hypertension Qualifiers: Hypertension type: unspecified Qualified Code(s): I10 - Essential (primary) hypertension Condition: Good Instructions: ED Headache Migraine Follow-Up: WESTLEY TRIANA [Primary Care Provider] - (to recheck your blood pressure which is high today) Comments: Please take your blood pressure medications when you get home and see your PMD to get your blood pressure rechecked when you are feeling better
[2017-03-14] MEDS ORDERED: KETOROLAC 60 MG/2 ML VIAL IVP STA (08:30)
[2017-03-14] MEDS ORDERED: SODIUM CHLORIDE 0.9% 1,000 ML IV ONE (08:30)
[2017-03-14] MEDS ORDERED: PROMETHAZINE INJ 25 MG in SODIUM CHLORIDE 0.9% 50 ML IV STA (08:30)
[2017-03-14] MEDS ORDERED: diphenhydrAMINE INJ 50 MG/ML VIAL IVP STA (08:31)
[2017-03-14] MEDS ORDERED: LIDOCAINE TOPICAL 4% 50 ML BOTTLE MM STA (08:35)
[2017-03-14 09:37] VITALS: BP 170/128
[2017-03-14] MEDS ORDERED: METOPROLOL SUCCINATE 50 MG TABLET PO STA (10:15)
[2017-03-14] MEDS ORDERED: ACETAMINOPHEN 1,000 MG/100 ML 100 ML IV STA (10:16)
== END 2017-03-14 10:50 | disposition home or self-care (01) ==
LOC: ED 08:02
DX: G43.909 Migraine, unspecified, not intractable, without status migrainosus (principal); I11.0 Hypertensive heart disease with heart failure; I50.9 Heart failure, unspecified; Z79.82 Long term (current) use of aspirin; F17.200 Nicotine dependence, unspecified, uncomplicated
CPT/HCPCS: 96361; 96365; 96375; 99283; 99284; A9270; J7040

== ENCOUNTER 2017-03-16 11:53 | Outpatient (CLI) | payer MEDICAID | END 2017-03-16 11:54 | disposition short-term general hospital (02) | LOC: EMS 11:53 | PROVIDERS: ATTEND Surgery | DX: R07.9 Chest pain, unspecified (principal) | CPT/HCPCS: A0425; A0427 ==

== ENCOUNTER 2017-03-31 11:19 | Outpatient (CLI) | payer MEDICAID | END 2017-03-31 11:20 | disposition critical access hospital (66) | LOC: EMS 11:19 | PROVIDERS: ATTEND Surgery | DX: R06.02 Shortness of breath (principal); R52 Pain, unspecified; R51 Headache | CPT/HCPCS: A0425; A0429 ==

== ENCOUNTER 2017-03-31 11:37 | Emergency (ER) | payer MEDICAID ==
[2017-03-31] MEDS ORDERED: guaiFENesin/DEXTROMETHORPHAN 10 ML UDC PO STA (11:47)
[2017-03-31] MEDS ORDERED: BENZONATATE 100 MG CAPSULE PO STA (11:47)
--- NOTE | 2017-03-31 11:51 | ED Physician Documentation ---
History of Present Illness - Stated complaint Stated Complaint: CONGESTION - Chief complaint Chief Complaint: General - Additonal information Additional information: hx from pt 46 male extensive medical hx including asthma and CHF to ER with 10 days of subj fever cough myalgias CALI not getting better has not been seen for same yet Review of Systems Constitutional: reports: Fever, Myalgias, Fatigue Respiratory: reports: Cough GI: denies: Nausea, Vomiting, Diarrhea Neurologic: reports: Generalized weakness, Headache Immunocompromised: denies: Immunocompromised PD PAST MEDICAL HISTORY - Past Medical History Cardiovascular: Congestive heart failure, Hypertension, High cholesterol Respiratory: Asthma, Shortness of breath Neuro: Headache/migraine, Head injury, Motion sickness, Fainting Endocrine/Autoimmune: None GI: None, Crohn's disease, Other : None HEENT: None, Other Psych: Depression, Anxiety, Post traumatic stress disorder, Other Musculoskeletal: Osteoarthritis, Fibromyalgia, Fatigue, Chronic back pain Derm: Eczema - Past Surgical History Past Surgical History: Yes General: Appendectomy Cardiovascular: Other HEENT: Cataracts - Present Medications Home Medications: Ambulatory Orders Medication Instructions Recorded Confirmed Pregabalin [Lyrica] 300 mg PO BID 05/14/14 03/31/17 sulfaSALAzine [Sulfasalazine] 1,000 mg PO TID 06/10/14 03/31/17 Albuterol Sulfate [Proair Hfa 2 puffs INH Q6HR PRN 07/18/14 03/31/17 Inhaler] Meclizine HCl 25 mg PO Q6H PRN #30 tablet 01/06/15 03/31/17 Promethazine [Phenergan] 25 - 50 mg PO Q6H PRN #30 tab 01/06/15 03/31/17 Alprazolam [Xanax] 2 mg PO DAILY 10/19/16 03/31/17 Divalproex Sodium [Depakote] 500 mg PO BID 10/19/16 03/31/17 Oxycodone HCl/Acetaminophen 1 each PO TID PRN 10/19/16 03/14/17 [Percocet 10-325 mg Tablet] tiZANidine [Zanaflex] 8 mg PO TID PRN 10/19/16 03/31/17 Verapamil HCl [Verapamil ER] 120 mg PO DAILY 02/04/17 03/31/17 ALPRAZolam [Alprazolam] 4 mg PO QPM 02/10/17 03/31/17 Aspirin [Aspirin EC] 81 mg PO DAILY 02/10/17 03/31/17 Budesonide/Formoterol Fumarate 2 puffs INH BID 02/10/17 03/31/17 [Symbicort 160-4.5 Mcg Inhaler] Duloxetine HCl 60 mg PO BID 02/10/17 03/31/17 Ferrous Gluconate 324 mg PO DAILY 02/10/17 03/31/17 Milnacipran HCl [Savella] 50 mg PO BID 02/10/17 03/31/17 Nicotine [Nicotine Patch] 14 mg TOP DAILY 02/10/17 03/14/17 Nitroglycerin 1 spray SL Q5M PRN 02/10/17 03/31/17 Prazosin HCl 2 mg PO DAILY 02/10/17 03/31/17 Prazosin HCl 4 mg PO QPM 02/10/17 03/31/17 raNITIdine [Zantac] 150 mg PO BID 02/10/17 03/31/17 Fluticasone [Flonase] 1 sprays JUAN FRANCISCO DAILY #5 bottle 02/11/17 03/31/17 Metoprolol Succinate [Toprol Xl] 100 mg PO BID #60 tab.er.24h 02/11/17 03/31/17 Benzonatate [Tessalon] 100 mg PO TID PRN #20 capsule 03/31/17 guaiFENesin/DEXTROMETHORPHAN 10 ml PO Q6H PRN #120 ml 03/31/17 [Robitussin Dm] predniSONE [Deltasone] 60 mg PO DAILY 5 Days #12 tablet 03/31/17 - Allergies Allergies/Adverse Reactions: Allergies Allergy/AdvReac Type Severity Reaction Status Date / Time amitriptyline [Amitriptyline] Allergy Mild Anxiety Verified 03/31/17 11:44 codeine [Codeine] Allergy Mild Hives Verified 03/31/17 11:44 telmisartan [From Micardis] Allergy Mild Hives Verified 03/31/17 11:44 venom-honey bee Allergy Anaphylaxis Verified 03/31/17 11:44 [bee venom (honey bee)] lisinopril AdvReac Anxiety Verified 03/31/17 11:44 NSAIDS (Non-Steroidal AdvReac Emesis Verified 03/31/17 11:44 Anti-Inflamma tramadol HCl * [From Ultram] AdvReac Unknown Verified 03/31/17 11:44 Ghost peppers Allergy Anaphylaxis Uncoded 03/14/17 08:09 squash Allergy Anaphylaxis Uncoded 03/14/17 08:09 [email or web address] Allergy Anaphylaxis Uncoded 03/14/17 08:09 - Social History Does the pt smoke?: Yes Smoking Status: Current every day smoker Does the pt drink ETOH?: No Does the pt have substance abuse?: No - Immunizations Immunizations are current?: Yes Immunizations: TDAP >10years/unknown, Other immun not current - POLST Patient has POLST: No PD ED PE NORMAL - Vitals Vital signs reviewed: Yes - General General: Alert and oriented X 3 - HEENT HEENT: PERRL - Neck Neck: Supple, no meningeal sign - Cardiac Cardiac: RRR - Respiratory Respiratory: Other (coarse kristy no wheezing right now) - Abdomen Abdomen: Soft, Non tender - Derm Derm: Normal color - Extremities Extremities: Normal ROM s pain - Neuro Neuro: Alert and oriented X 3 Results - Vitals Vitals: Vital Signs - 24 hr 03/31/17 11:41 Temperature 36.7 C Heart Rate 78 Respiratory 16 Rate Blood Pressure 159/97 H O2 Saturation 99 Oxygen O2 Source Room air - Labs Labs: Laboratory Tests 03/31/17 11:25 Influenza A (Rapid) Negative Influenza B (Rapid) Negative Influenza Types A,B Ag - - Rads (name of study) CXR Radiology: See rad report (nacpd) PD MEDICAL DECISION MAKING - ED course ED course: 46 male URI sx for 10 days CXR neg and flu swabs neg nl VS no CHF or cardiomegaly on CXR either extensive Pmhx but feel safe to dc with close follow up will inc prednisone, should use MDI neb q4h, tessalon and cyndi DM PRN Departure - Departure Disposition: ED Transfer to [facility] Clinical Impression: Bronchitis Condition: Good Instructions: ED Upper Resp Infec No Abx Tx Follow-Up: WESTLEY TRIANA [Primary Care Provider] - Prescriptions: Benzonatate [Tessalon] 100 mg PO TID PRN #20 capsule PRN Reason: to ease cough guaiFENesin/DEXTROMETHORPHAN [Robitussin Dm] 10 ml PO Q6H PRN #120 ml PRN Reason: Cough predniSONE [Deltasone] 60 mg PO DAILY 5 Days #12 tablet Comments: Your xray does not show pneumonia - also does not show congestive heart failure or an enlarged heart You flu swabs were negative too. It seems you have a viral bronchitis I recommend 5 days of steroids to decrease airway inflammation Albuterol every 4 h for the next few days then as needed I have also prescribed medication to ease the cough. Given your numerous underlying medical problems, please follow up with your PMD for a recheck in the next 3 days. Return to the ER if worse
--- NOTE | 2017-03-31 12:50 | XRAY Report ---
EXAM: CHEST RADIOGRAPHY 2 VIEWS EXAM DATE: 03/31/2017. CLINICAL HISTORY: Cough. COMPARISON: AP portable chest ON 02/10/2017. TECHNIQUE: PA and lateral views. FINDINGS: Lungs/Pleura: Normal vasculature. The lungs are clear. No pleural fluid or pneumothorax. Mediastinum: Normal cardiac and mediastinal contours. Bones: Normal. Other: Small electronic device in the mid anterior chest wall is unchanged. IMPRESSION: Small electronic device in the mid anterior chest wall, unchanged from 02/10/2017. Otherwise normal examination. [facility] Referring Provider Line: [phone] SITE ID: [id number]
[2017-03-31] MEDS ORDERED: predniSONE 20 MG TABLET PO STA (13:48)
[2017-03-31 14:04] VITALS: BP 164/113
== END 2017-03-31 14:10 | disposition home or self-care (01) ==
LOC: EDBD → EDUNIT# → ED 11:37
DX: J40 Bronchitis, not specified as acute or chronic (principal); I11.0 Hypertensive heart disease with heart failure; I50.9 Heart failure, unspecified; E78.00 Pure hypercholesterolemia, unspecified; F17.200 Nicotine dependence, unspecified, uncomplicated; Z79.82 Long term (current) use of aspirin
CPT/HCPCS: 71046; 87275; 87276; 99283; A9270; J7512

== ENCOUNTER 2017-04-24 07:56 | Emergency (ER) | payer MEDICAID, MEDICARE ==
[2017-04-24] MEDS ORDERED: HYDROmorphone 1 MG/ML SYRINGE IM STA (09:26)
[2017-04-24] MEDS ORDERED: ONDANSETRON ODT 4 MG TABLET TL STA (09:26)
[2017-04-24] MEDS ORDERED: DEXAMETHASONE 10 MG/ML VIAL PO STA (09:26)
--- NOTE | 2017-04-24 09:49 | ED Physician Documentation ---
PD HPI BACK PAIN - Stated complaint Stated Complaint: LEG/BACK PX - Chief complaint Chief Complaint: Back Pain - History obtained from History obtained from: Patient - History of Present Illness Timing - onset: How many days ago (6) Timing - duration: Days (6) Timing - details: Gradual onset, Still present Location: Lower, Left Quality: Pain, Spasm, Sharp, Similar to prior episodes Associated symptoms: No: Fever, Weakness, Numbness, Incontinent of urine, Unable to urinate, Hematuria, Incontinent of stool Improves with: Rest, Position, Meds Worsened by: Movement Similar symptoms before: Diagnosis (back pain) Recently seen: Not recently seen - Additional information Additional information: 46-year-old obese white male with a history of CHF asthma Crohn's disease and chronic back pain has an increase in his low back pain radiating down his left leg. He has pain to the left anterior thigh. He is not having urinary incontinence or stool incontinence. Denies perineal anesthesia. Review of Systems Constitutional: denies: Fever Eyes: denies: Decreased vision Ears: denies: Loss of hearing, Ear pain Nose: denies: Congestion Throat: denies: Sore throat Respiratory: denies: Dyspnea, Cough GI: denies: Vomiting : denies: Dysuria PD PAST MEDICAL HISTORY - Past Medical History Cardiovascular: Congestive heart failure, Hypertension, High cholesterol Respiratory: Asthma, Shortness of breath Neuro: Headache/migraine, Head injury, Motion sickness, Fainting Endocrine/Autoimmune: None GI: None, Crohn's disease, Other : None HEENT: None, Other Psych: Depression, Anxiety, Post traumatic stress disorder, Other Musculoskeletal: Osteoarthritis, Fibromyalgia, Fatigue, Chronic back pain Derm: Eczema - Past Surgical History Past Surgical History: Yes General: Appendectomy Cardiovascular: Other HEENT: Cataracts - Present Medications Home Medications: Ambulatory Orders Medication Instructions Recorded Confirmed Pregabalin [Lyrica] 300 mg PO BID 05/14/14 03/31/17 sulfaSALAzine [Sulfasalazine] 1,000 mg PO TID 06/10/14 03/31/17 Albuterol Sulfate [Proair Hfa 2 puffs INH Q6HR PRN 07/18/14 03/31/17 Inhaler] Meclizine HCl 25 mg PO Q6H PRN #30 tablet 01/06/15 03/31/17 Promethazine [Phenergan] 25 - 50 mg PO Q6H PRN #30 tab 01/06/15 03/31/17 Alprazolam [Xanax] 2 mg PO DAILY 10/19/16 03/31/17 Divalproex Sodium [Depakote] 500 mg PO BID 10/19/16 03/31/17 Oxycodone HCl/Acetaminophen 1 each PO TID PRN 10/19/16 03/14/17 [Percocet 10-325 mg Tablet] tiZANidine [Zanaflex] 8 mg PO TID PRN 10/19/16 03/31/17 Verapamil HCl [Verapamil ER] 120 mg PO DAILY 02/04/17 03/31/17 ALPRAZolam [Alprazolam] 4 mg PO QPM 02/10/17 03/31/17 Aspirin [Aspirin EC] 81 mg PO DAILY 02/10/17 03/31/17 Budesonide/Formoterol Fumarate 2 puffs INH BID 02/10/17 03/31/17 [Symbicort 160-4.5 Mcg Inhaler] Duloxetine HCl 60 mg PO BID 02/10/17 03/31/17 Ferrous Gluconate 324 mg PO DAILY 02/10/17 03/31/17 Milnacipran HCl [Savella] 50 mg PO BID 02/10/17 03/31/17 Nicotine [Nicotine Patch] 14 mg TOP DAILY 02/10/17 03/14/17 Nitroglycerin 1 spray SL Q5M PRN 02/10/17 03/31/17 Prazosin HCl 2 mg PO DAILY 02/10/17 03/31/17 Prazosin HCl 4 mg PO QPM 02/10/17 03/31/17 raNITIdine [Zantac] 150 mg PO BID 02/10/17 03/31/17 Fluticasone [Flonase] 1 sprays JUAN FRANCISCO DAILY #5 bottle 02/11/17 03/31/17 Metoprolol Succinate [Toprol Xl] 100 mg PO BID #60 tab.er.24h 02/11/17 03/31/17 Benzonatate [Tessalon] 100 mg PO TID PRN #20 capsule 03/31/17 guaiFENesin/DEXTROMETHORPHAN 10 ml PO Q6H PRN #120 ml 03/31/17 [Robitussin Dm] predniSONE [Deltasone] 60 mg PO DAILY 5 Days #12 tablet 03/31/17 Oxycodone HCl/Acetaminophen 1 each PO Q6HR PRN #12 tablet 04/24/17 [Oxycodone-Acetaminophen 5-325] - Allergies Allergies/Adverse Reactions: Allergies Allergy/AdvReac Type Severity Reaction Status Date / Time amitriptyline [Amitriptyline] Allergy Mild Anxiety Verified 04/24/17 08:03 codeine [Codeine] Allergy Mild Hives Verified 04/24/17 08:03 telmisartan [From Micardis] Allergy Mild Hives Verified 04/24/17 08:03 venom-honey bee Allergy Anaphylaxis Verified 04/24/17 08:03 [bee venom (honey bee)] lisinopril AdvReac Anxiety Verified 04/24/17 08:03 NSAIDS (Non-Steroidal AdvReac Emesis Verified 04/24/17 08:03 Anti-Inflamma tramadol HCl * [From Ultram] AdvReac Unknown Verified 04/24/17 08:03 Ghost peppers Allergy Anaphylaxis Uncoded 04/24/17 08:03 squash Allergy Anaphylaxis Uncoded 04/24/17 08:03 [email or web address] Allergy Anaphylaxis Uncoded 04/24/17 08:03 - Social History Does the pt smoke?: Yes Smoking Status: Current every day smoker Does the pt drink ETOH?: No Does the pt have substance abuse?: No - Immunizations Immunizations are current?: Yes Immunizations: TDAP >10years/unknown, Other immun not current - POLST Patient has POLST: No PD ED PE NORMAL - Vitals Vital signs reviewed: Yes (Hypertensive) - General General: Alert and oriented X 3, No acute distress, Well developed/nourished - HEENT HEENT: Atraumatic, PERRL - Respiratory Respiratory: No respiratory distress - Back Back: No CVA TTP, No spinal TTP, Other (Mild point tenderness to the paraspinous muscles of the left lower lumbar spine into the sciatic notch.) - Derm Derm: Normal color, Warm and dry, No rash - Extremities Extremities: No deformity, No edema - Neuro Neuro: No motor deficit, No sensory deficit Eye Opening: Spontaneous Motor: Obeys Commands Verbal: Oriented GCS Score: 15 - Psych Psych: Normal mood, Normal affect Results - Vitals Vitals: Vital Signs - 24 hr 04/24/17 04/24/17 07:59 08:07 Temperature 36.5 C Heart Rate 68 Respiratory 22 Rate Blood Pressure 160/98 H O2 Saturation 97 Oxygen O2 Source Room air PD MEDICAL DECISION MAKING - ED course Complexity details: reviewed old records, re-evaluated patient, considered differential, d/w patient ED course: 46-year-old male with chronic back pain has exacerbation of his pain and appears uncomfortable. He is asking for some medication to get him on to the bus to get back home. He is administered dexamethasone and Dilaudid and Zofran. I have reviewed his narcotic profile he does get periodic prescription for a very small amount of narcotic. I will continue with only a small quantity of pain medication for this episode Departure - Departure Disposition: 01 Home, Self Care Clinical Impression: Sciatica Qualifiers: Laterality: left Qualified Code(s): M54.32 - Sciatica, left side Condition: Stable Instructions: ED Sciatica Follow-Up: WESTLEY TRIANA [Primary Care Provider] - Prescriptions: Oxycodone HCl/Acetaminophen [Oxycodone-Acetaminophen 5-325] 1 each PO Q6HR PRN # 12 tablet PRN Reason: back pain
[2017-04-24] MEDS ORDERED: CHERRY SYRUP 10 ML UDC PO ONE (10:17)
[2017-04-24 10:44] VITALS: BP 159/113
== END 2017-04-24 10:44 | disposition home or self-care (01) ==
LOC: ED 07:56
DX: M54.42 Lumbago with sciatica, left side (principal); E66.9 Obesity, unspecified; I11.0 Hypertensive heart disease with heart failure; I50.9 Heart failure, unspecified; K50.90 Crohn's disease, unspecified, without complications; J45.909 Unspecified asthma, uncomplicated; E78.00 Pure hypercholesterolemia, unspecified; M19.90 Unspecified osteoarthritis, unspecified site; M79.7 Fibromyalgia; F17.200 Nicotine dependence, unspecified, uncomplicated
CPT/HCPCS: 96372; 99283; 99284; A9270; J1170; Q0162

== ENCOUNTER 2017-05-01 07:08 | Emergency (ER) | payer MEDICAID, MEDICARE ==
[2017-05-01] MEDS ORDERED: ONDANSETRON ODT 4 MG TABLET TL STA (07:42)
[2017-05-01] MEDS ORDERED: DEXAMETHASONE 10 MG/ML VIAL PO STA (07:42)
[2017-05-01] MEDS ORDERED: HYDROmorphone 1 MG/ML SYRINGE IM STA (07:42)
--- NOTE | 2017-05-01 07:46 | ED Physician Documentation ---
PD HPI BACK PAIN - Stated complaint Stated Complaint: LEG PX - Chief complaint Chief Complaint: Back Pain - History obtained from History obtained from: Patient - History of Present Illness Timing - onset: How many weeks ago (3 2) Timing - duration: Weeks (3 2) Timing - details: Gradual onset, Still present Location: Lower, Left Quality: Pain, Spasm, Sharp, Similar to prior episodes Associated symptoms: No: Fever, Weakness, Numbness, Incontinent of urine, Unable to urinate, Hematuria, Incontinent of stool Improves with: Rest, Position, Meds Worsened by: Movement Similar symptoms before: Diagnosis (lumbar disc disease) Recently seen: Emergency Dept - Additional information Additional information: 46-year-old male with a history of lumbar disc disease has developed pain in his lower back much worse than usual about 3 and half weeks ago. He did come into the emergency department and was treated with a course of dexamethasone a single dose and oxycodone. He had some relief of the pain the day of the visit and the pain returned the following day. He is having intolerable pain again radiating down the left leg and he is not having urinary incontinence fecal incontinence or perineal anesthesia. He does have pain down the anterior and posterior thigh on the left side.He has had epidural steroid injections previously with mixed results. Review of Systems Constitutional: denies: Fever Eyes: denies: Decreased vision Ears: denies: Ear pain Nose: denies: Congestion Throat: denies: Sore throat Respiratory: denies: Dyspnea GI: denies: Vomiting : denies: Dysuria Skin: denies: Rash Musculoskeletal: reports: Back pain, Extremity pain. denies: Neck pain Neurologic: denies: Generalized weakness, Focal weakness, Numbness PD PAST MEDICAL HISTORY - Past Medical History Cardiovascular: Congestive heart failure, Hypertension, High cholesterol Respiratory: Asthma, Shortness of breath Neuro: Headache/migraine, Head injury, Motion sickness, Fainting Endocrine/Autoimmune: None GI: None, Crohn's disease, Other : None HEENT: None, Other Psych: Depression, Anxiety, Post traumatic stress disorder, Other Musculoskeletal: Osteoarthritis, Fibromyalgia, Fatigue, Chronic back pain Derm: Eczema - Past Surgical History Past Surgical History: Yes General: Appendectomy Cardiovascular: Other HEENT: Cataracts - Present Medications Home Medications: Ambulatory Orders Medication Instructions Recorded Confirmed Pregabalin [Lyrica] 300 mg PO BID 05/14/14 03/31/17 sulfaSALAzine [Sulfasalazine] 1,000 mg PO TID 06/10/14 03/31/17 Albuterol Sulfate [Proair Hfa 2 puffs INH Q6HR PRN 07/18/14 03/31/17 Inhaler] Meclizine HCl 25 mg PO Q6H PRN #30 tablet 01/06/15 03/31/17 Promethazine [Phenergan] 25 - 50 mg PO Q6H PRN #30 tab 01/06/15 03/31/17 Alprazolam [Xanax] 2 mg PO DAILY 10/19/16 03/31/17 Divalproex Sodium [Depakote] 500 mg PO BID 10/19/16 03/31/17 Oxycodone HCl/Acetaminophen 1 each PO TID PRN 10/19/16 03/14/17 [Percocet 10-325 mg Tablet] tiZANidine [Zanaflex] 8 mg PO TID PRN 10/19/16 03/31/17 Verapamil HCl [Verapamil ER] 120 mg PO DAILY 02/04/17 03/31/17 ALPRAZolam [Alprazolam] 4 mg PO QPM 02/10/17 03/31/17 Aspirin [Aspirin EC] 81 mg PO DAILY 02/10/17 03/31/17 Budesonide/Formoterol Fumarate 2 puffs INH BID 02/10/17 03/31/17 [Symbicort 160-4.5 Mcg Inhaler] Duloxetine HCl 60 mg PO BID 02/10/17 03/31/17 Ferrous Gluconate 324 mg PO DAILY 02/10/17 03/31/17 Milnacipran HCl [Savella] 50 mg PO BID 02/10/17 03/31/17 Nicotine [Nicotine Patch] 14 mg TOP DAILY 02/10/17 03/14/17 Nitroglycerin 1 spray SL Q5M PRN 02/10/17 03/31/17 Prazosin HCl 2 mg PO DAILY 02/10/17 03/31/17 Prazosin HCl 4 mg PO QPM 02/10/17 03/31/17 raNITIdine [Zantac] 150 mg PO BID 02/10/17 03/31/17 Fluticasone [Flonase] 1 sprays JUAN FRANCISCO DAILY #5 bottle 02/11/17 03/31/17 Metoprolol Succinate [Toprol Xl] 100 mg PO BID #60 tab.er.24h 02/11/17 03/31/17 Benzonatate [Tessalon] 100 mg PO TID PRN #20 capsule 03/31/17 guaiFENesin/DEXTROMETHORPHAN 10 ml PO Q6H PRN #120 ml 03/31/17 [Robitussin Dm] predniSONE [Deltasone] 60 mg PO DAILY 5 Days #12 tablet 03/31/17 Oxycodone HCl/Acetaminophen 1 each PO Q6HR PRN #12 tablet 04/24/17 [Oxycodone-Acetaminophen 5-325] Dexamethasone 4 mg PO DAILY #5 tablet 05/01/17 Oxycodone HCl/Acetaminophen 1 each PO Q6HR PRN #15 tablet 05/01/17 [Oxycodone-Acetaminophen 10-325] - Allergies Allergies/Adverse Reactions: Allergies Allergy/AdvReac Type Severity Reaction Status Date / Time amitriptyline [Amitriptyline] Allergy Mild Anxiety Verified 04/24/17 08:03 codeine [Codeine] Allergy Mild Hives Verified 04/24/17 08:03 telmisartan [From Micardis] Allergy Mild Hives Verified 04/24/17 08:03 venom-honey bee Allergy Anaphylaxis Verified 04/24/17 08:03 [bee venom (honey bee)] lisinopril AdvReac Anxiety Verified 04/24/17 08:03 NSAIDS (Non-Steroidal AdvReac Emesis Verified 04/24/17 08:03 Anti-Inflamma tramadol HCl * [From Ultram] AdvReac Unknown Verified 04/24/17 08:03 Ghost peppers Allergy Anaphylaxis Uncoded 04/24/17 08:03 squash Allergy Anaphylaxis Uncoded 04/24/17 08:03 zuccinni Allergy Anaphylaxis Uncoded 04/24/17 08:03 - Social History Does the pt smoke?: Yes Smoking Status: Current every day smoker Does the pt drink ETOH?: No Does the pt have substance abuse?: No - Immunizations Immunizations are current?: Yes Immunizations: TDAP >10years/unknown, Other immun not current - POLST Patient has POLST: No PD ED PE NORMAL - Vitals Vital signs reviewed: Yes (Hypertensive diastolic marked) - General General: Alert and oriented X 3, Well developed/nourished, Other (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) - HEENT HEENT: Atraumatic, PERRL - Respiratory Respiratory: No respiratory distress - Back Back: No CVA TTP, No spinal TTP, Other - Derm Derm: Normal color, Warm and dry (There is some mild tenderness to palpation to the lower lumbar paraspinous muscles extending into the sciatic notch.), No rash - Extremities Extremities: No deformity - Neuro Neuro: Alert and oriented X 3, burlapper 2-12 intact, No motor deficit, No sensory deficit, Normal speech Eye Opening: Spontaneous Motor: Obeys Commands Verbal: Oriented GCS Score: 15 - Psych Psych: Normal mood Results - Vitals Vitals: Vital Signs - 24 hr 05/01/17 07:10 Temperature 36.7 C Heart Rate 94 Respiratory 20 Rate Blood Pressure 189/113 H O2 Saturation 97 Oxygen O2 Source Room air PD MEDICAL DECISION MAKING - ED course Complexity details: reviewed old records, considered differential, d/w patient ED course: 46-year-old male with a history of lumbar disc disease has acute sciatica and he has had a recent visit to the emergency department he did have some relief with a single dose of dexamethasone this did not last and I have offered to the patient to repeat the treatment given the previous time and in addition add the dexamethasone for 5 day course. I have recommended to the patient that he ask his primary care physician to order MRI of his back if he does not have improvement with this round of therapy. Departure - Departure Disposition: 01 Home, Self Care Clinical Impression: Sciatica Qualifiers: Laterality: left Qualified Code(s): M54.32 - Sciatica, left side Condition: Stable Instructions: ED Sciatica Follow-Up: WESTLEY TRIANA [Primary Care Provider] - Prescriptions: Oxycodone HCl/Acetaminophen [Oxycodone-Acetaminophen 10-325] 1 each PO Q6HR PRN #15 tablet PRN Reason: Pain Dexamethasone 4 mg PO DAILY #5 tablet
[2017-05-01 08:13] VITALS: BP 157/98
== END 2017-05-01 08:20 | disposition home or self-care (01) ==
LOC: ED 07:08
DX: M51.36 Other intervertebral disc degeneration, lumbar region (principal); F17.200 Nicotine dependence, unspecified, uncomplicated; Z79.82 Long term (current) use of aspirin
CPT/HCPCS: 96372; 99283; J1170; Q0162

== ENCOUNTER 2017-05-21 16:22 | Emergency (ER) | payer MEDICARE, MEDICAID ==
[2017-05-21] MEDS ORDERED: ONDANSETRON ODT 4 MG TABLET TL STA (16:59)
[2017-05-21] MEDS ORDERED: HYDROmorphone 1 MG/ML SYRINGE IM STA (16:59)
--- NOTE | 2017-05-21 17:09 | ED Physician Documentation ---
PD HPI BACK PAIN - Stated complaint Stated Complaint: BACK PX - Chief complaint Chief Complaint: Back Pain - History obtained from History obtained from: Patient - History of Present Illness Timing - onset: How many weeks ago (7) Timing - duration: Weeks (7) Timing - details: Abrupt onset, Still present, Waxing and waning Location: Lower, Left Quality: Pain, Spasm, Sharp, Similar to prior episodes Associated symptoms: Weakness, Numbness. No: Fever, Incontinent of urine, Unable to urinate, Hematuria, Incontinent of stool Improves with: Rest, Position, Meds Worsened by: Movement Contributing factors: Other (today he bent forward and has acute exacerbation of chronic pain) - Additional information Additional information: 46-year-old morbidly obese male with a history of Crohn's disease, asthma, CHF and chronic lumbar disc disease has had an increase in his symptoms about 2 months ago and this has been persistent and severe. He is spending most of his time in bed and has pain radiating down the left leg with numbness and weakness. He is not having incontinence of bowel or bladder and he denies saddle anesthesia. He has a history of narcotic prescription abuse and has previously overdosed. He has been off of pain medications for several months now and his clinic refuses to prescribe as he is on benzos as well. He has an MRI scheduled for this week. He is asking for some pain pills to get him through his visit to the clinic to get his loop recorder interrogated and to get his MRI scan this week. 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 Review of Systems Constitutional: denies: Fever Eyes: denies: Decreased vision Ears: denies: Ear pain Nose: denies: Congestion Throat: denies: Sore throat Cardiac: denies: Chest pain / pressure, Palpitations Respiratory: denies: Dyspnea, Cough GI: denies: Abdominal Pain, Nausea, Vomiting : denies: Dysuria, Frequency, Unable to Void, Incontinent Skin: denies: Rash Musculoskeletal: reports: Back pain, Extremity pain. denies: Neck pain, Extremity swelling, Joint swelling Neurologic: reports: Numbness. denies: Generalized weakness, Focal weakness PD PAST MEDICAL HISTORY - Past Medical History Cardiovascular: Congestive heart failure, Hypertension, High cholesterol Respiratory: Asthma, Shortness of breath Neuro: Headache/migraine, Head injury, Motion sickness, Fainting Endocrine/Autoimmune: None GI: None, Crohn's disease, Other : None HEENT: None, Other Psych: Depression, Anxiety, Post traumatic stress disorder, Other Musculoskeletal: Osteoarthritis, Fibromyalgia, Fatigue, Chronic back pain Derm: Eczema - Past Surgical History Past Surgical History: Yes General: Appendectomy Cardiovascular: Other HEENT: Cataracts - Present Medications Home Medications: Ambulatory Orders Medication Instructions Recorded Confirmed Pregabalin [Lyrica] 300 mg PO BID 05/14/14 03/31/17 sulfaSALAzine [Sulfasalazine] 1,000 mg PO TID 06/10/14 03/31/17 Albuterol Sulfate [Proair Hfa 2 puffs INH Q6HR PRN 07/18/14 03/31/17 Inhaler] Meclizine HCl 25 mg PO Q6H PRN #30 tablet 01/06/15 03/31/17 Promethazine [Phenergan] 25 - 50 mg PO Q6H PRN #30 tab 01/06/15 03/31/17 Alprazolam [Xanax] 2 mg PO DAILY 10/19/16 03/31/17 Divalproex Sodium [Depakote] 500 mg PO BID 10/19/16 03/31/17 Oxycodone HCl/Acetaminophen 1 each PO TID PRN 10/19/16 03/14/17 [Percocet 10-325 mg Tablet] tiZANidine [Zanaflex] 8 mg PO TID PRN 10/19/16 03/31/17 Verapamil HCl [Verapamil ER] 120 mg PO DAILY 02/04/17 03/31/17 ALPRAZolam [Alprazolam] 4 mg PO QPM 02/10/17 03/31/17 Aspirin [Aspirin EC] 81 mg PO DAILY 02/10/17 03/31/17 Budesonide/Formoterol Fumarate 2 puffs INH BID 02/10/17 03/31/17 [Symbicort 160-4.5 Mcg Inhaler] Duloxetine HCl 60 mg PO BID 02/10/17 03/31/17 Ferrous Gluconate 324 mg PO DAILY 02/10/17 03/31/17 Milnacipran HCl [Savella] 50 mg PO BID 02/10/17 03/31/17 Nicotine [Nicotine Patch] 14 mg TOP DAILY 02/10/17 03/14/17 Nitroglycerin 1 spray SL Q5M PRN 02/10/17 03/31/17 Prazosin HCl 2 mg PO DAILY 02/10/17 03/31/17 Prazosin HCl 4 mg PO QPM 02/10/17 03/31/17 raNITIdine [Zantac] 150 mg PO BID 02/10/17 03/31/17 Fluticasone [Flonase] 1 sprays JUAN FRANCISCO DAILY #5 bottle 02/11/17 03/31/17 Metoprolol Succinate [Toprol Xl] 100 mg PO BID #60 tab.er.24h 02/11/17 03/31/17 Benzonatate [Tessalon] 100 mg PO TID PRN #20 capsule 03/31/17 guaiFENesin/DEXTROMETHORPHAN 10 ml PO Q6H PRN #120 ml 03/31/17 [Robitussin Dm] predniSONE [Deltasone] 60 mg PO DAILY 5 Days #12 tablet 03/31/17 Oxycodone HCl/Acetaminophen 1 each PO Q6HR PRN #12 tablet 04/24/17 [Oxycodone-Acetaminophen 5-325] Dexamethasone 4 mg PO DAILY #5 tablet 05/01/17 Oxycodone HCl/Acetaminophen 1 each PO Q6HR PRN #15 tablet 05/01/17 [Oxycodone-Acetaminophen 10-325] Oxycodone HCl/Acetaminophen 1 each PO Q8HR PRN #10 tablet 05/21/17 [Percocet 10-325 mg Tablet] - Allergies Allergies/Adverse Reactions: Allergies Allergy/AdvReac Type Severity Reaction Status Date / Time amitriptyline [Amitriptyline] Allergy Mild Anxiety Verified 05/21/17 16:30 codeine [Codeine] Allergy Mild Hives Verified 05/21/17 16:30 telmisartan [From Micardis] Allergy Mild Hives Verified 05/21/17 16:30 venom-honey bee Allergy Anaphylaxis Verified 05/21/17 16:30 [bee venom (honey bee)] lisinopril AdvReac Anxiety Verified 05/21/17 16:30 NSAIDS (Non-Steroidal AdvReac Emesis Verified 05/21/17 16:30 Anti-Inflamma tramadol HCl * [From Ultram] AdvReac Unknown Verified 05/21/17 16:30 Ghost peppers Allergy Anaphylaxis Uncoded 05/21/17 16:30 squash Allergy Anaphylaxis Uncoded 05/21/17 16:30 zuccinni Allergy Anaphylaxis Uncoded 05/21/17 16:30 - Social History Does the pt smoke?: Yes Smoking Status: Current every day smoker Does the pt drink ETOH?: No Does the pt have substance abuse?: No - Immunizations Immunizations are current?: Yes Immunizations: TDAP >10years/unknown, Other immun not current - POLST Patient has POLST: No PD ED PE NORMAL - Vitals Vital signs reviewed: Yes (hypertensive marked. 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 ) - HEENT HEENT: Atraumatic, PERRL, EOMI - Neck Neck: Supple, no meningeal sign - Respiratory Respiratory: No respiratory distress - Back Back: No CVA TTP, Other (There is paraspinous point tenderness to the lower lumbar spine area on the left extending into the sciatic notch on the left. ) - Derm Derm: Normal color, Warm and dry, No rash - Extremities Extremities: No deformity, No edema - Neuro Neuro: No motor deficit, No sensory deficit Eye Opening: Spontaneous Motor: Obeys Commands Verbal: Oriented GCS Score: 15 - Psych Psych: Normal mood, Other (affect is flat. ) Results - Vitals Vitals: Vital Signs - 24 hr 05/21/17 16:25 Temperature 36.0 C L Heart Rate 99 Respiratory 20 Rate Blood Pressure 148/121 H O2 Saturation 97 Oxygen O2 Source Room air PD MEDICAL DECISION MAKING - ED course Complexity details: reviewed old records, considered differential, d/w patient ED course: 46-year-old male with exacerbation of chronic lumbar pain does not have source of narcotic at this point. He does have a study T to get done in 3 days time. He is requesting medication for pain acutely and for pain pills. He is asking for 10 pills. I have examined his medical record and find multiple red flags regarding his use of narcotics. He does appear to be in pain and his request does appear reasonable. I was able to contact his doctor Dr. Candelario at [facility] in [place]. He has okayed the use of 10 pills and the clinic there will re- visit his need for narcotic. He did not think the steroids helped all that much and this is not repeated today. Departure - Departure Disposition: 01 Home, Self Care Clinical Impression: Sciatica Qualifiers: Laterality: left Qualified Code(s): M54.32 - Sciatica, left side Condition: Stable Instructions: ED Sciatica Follow-Up: WESTLEY TRIANA [Primary Care Provider] - Prescriptions: Oxycodone HCl/Acetaminophen [Percocet 10-325 mg Tablet] 1 each PO Q8HR PRN #10 tablet PRN Reason: Pain
[2017-05-21 18:06] VITALS: BP 181/112
== END 2017-05-21 18:05 | disposition home or self-care (01) ==
LOC: ED 16:22
DX: M54.32 Sciatica, left side (principal); I11.0 Hypertensive heart disease with heart failure; I50.9 Heart failure, unspecified; E78.00 Pure hypercholesterolemia, unspecified; E66.01 Morbid (severe) obesity due to excess calories; G89.29 Other chronic pain; F17.200 Nicotine dependence, unspecified, uncomplicated
CPT/HCPCS: 96372; 99283; J1170; Q0162

== ENCOUNTER 2017-06-18 04:06 | Emergency (ER) | payer MEDICARE, MEDICAID ==
--- NOTE | 2017-06-18 04:50 | ED Physician Documentation ---
PD HPI BACK PAIN - Stated complaint Stated Complaint: BACK PAIN - Chief complaint Chief Complaint: Back Pain - History obtained from History obtained from: Patient - History of Present Illness Timing - onset: Chronic Timing - duration: Years Timing - details: Gradual onset Pain level now: 8 Location: Lower, Right, Left Quality: Pain, Similar to prior episodes Associated symptoms: No: Fever, Weakness, Numbness, Incontinent of urine, Unable to urinate, Hematuria, Incontinent of stool Improves with: Rest Worsened by: Movement Recently seen: Emergency Dept - Additional information Additional information: c/o exacerbation of chronic back pain x 2-3 days, inadequate relief with percocet rx. frequent ED visits past few years and over 2 dozen over past 12 months (includes visits to four [place] EDs including [facility]). drove self to ED Review of Systems Constitutional: denies: Fever : reports: Hesitancy. denies: Unable to Void, Incontinent Musculoskeletal: reports: Back pain. denies: Neck pain Neurologic: denies: Focal weakness, Numbness PD PAST MEDICAL HISTORY - Past Medical History Cardiovascular: Congestive heart failure, Hypertension, High cholesterol Respiratory: Asthma, Shortness of breath Neuro: Headache/migraine, Head injury, Motion sickness, Fainting Endocrine/Autoimmune: None GI: None, Crohn's disease, Other : None HEENT: None, Other Psych: Depression, Anxiety, Post traumatic stress disorder, Other Musculoskeletal: Osteoarthritis, Fibromyalgia, Fatigue, Chronic back pain Derm: Eczema - Past Surgical History Past Surgical History: Yes General: Appendectomy Cardiovascular: Other HEENT: Cataracts - Present Medications Home Medications: Ambulatory Orders Medication Instructions Recorded Confirmed Pregabalin [Lyrica] 300 mg PO BID 05/14/14 03/31/17 sulfaSALAzine [Sulfasalazine] 1,000 mg PO TID 06/10/14 03/31/17 Albuterol Sulfate [Proair Hfa 2 puffs INH Q6HR PRN 07/18/14 03/31/17 Inhaler] Meclizine HCl 25 mg PO Q6H PRN #30 tablet 01/06/15 03/31/17 Promethazine [Phenergan] 25 - 50 mg PO Q6H PRN #30 tab 01/06/15 03/31/17 Alprazolam [Xanax] 2 mg PO DAILY 10/19/16 03/31/17 Divalproex Sodium [Depakote] 500 mg PO BID 10/19/16 03/31/17 Oxycodone HCl/Acetaminophen 1 each PO TID PRN 10/19/16 03/14/17 [Percocet 10-325 mg Tablet] tiZANidine [Zanaflex] 8 mg PO TID PRN 10/19/16 03/31/17 Verapamil HCl [Verapamil ER] 120 mg PO DAILY 02/04/17 03/31/17 ALPRAZolam [Alprazolam] 4 mg PO QPM 02/10/17 03/31/17 Aspirin [Aspirin EC] 81 mg PO DAILY 02/10/17 03/31/17 Budesonide/Formoterol Fumarate 2 puffs INH BID 02/10/17 03/31/17 [Symbicort 160-4.5 Mcg Inhaler] Duloxetine HCl 60 mg PO BID 02/10/17 03/31/17 Ferrous Gluconate 324 mg PO DAILY 02/10/17 03/31/17 Milnacipran HCl [Savella] 50 mg PO BID 02/10/17 03/31/17 Nicotine [Nicotine Patch] 14 mg TOP DAILY 02/10/17 03/14/17 Nitroglycerin 1 spray SL Q5M PRN 02/10/17 03/31/17 Prazosin HCl 2 mg PO DAILY 02/10/17 03/31/17 Prazosin HCl 4 mg PO QPM 02/10/17 03/31/17 raNITIdine [Zantac] 150 mg PO BID 02/10/17 03/31/17 Fluticasone [Flonase] 1 sprays JUAN FRANCISCO DAILY #5 bottle 02/11/17 03/31/17 Metoprolol Succinate [Toprol Xl] 100 mg PO BID #60 tab.er.24h 02/11/17 03/31/17 Benzonatate [Tessalon] 100 mg PO TID PRN #20 capsule 03/31/17 guaiFENesin/DEXTROMETHORPHAN 10 ml PO Q6H PRN #120 ml 03/31/17 [Robitussin Dm] predniSONE [Deltasone] 60 mg PO DAILY 5 Days #12 tablet 03/31/17 Oxycodone HCl/Acetaminophen 1 each PO Q6HR PRN #12 tablet 04/24/17 [Oxycodone-Acetaminophen 5-325] Dexamethasone 4 mg PO DAILY #5 tablet 05/01/17 Oxycodone HCl/Acetaminophen 1 each PO Q6HR PRN #15 tablet 05/01/17 [Oxycodone-Acetaminophen 10-325] Oxycodone HCl/Acetaminophen 1 each PO Q8HR PRN #10 tablet 05/21/17 [Percocet 10-325 mg Tablet] - Allergies Allergies/Adverse Reactions: Allergies Allergy/AdvReac Type Severity Reaction Status Date / Time amitriptyline [Amitriptyline] Allergy Mild Anxiety Verified 06/18/17 04:12 codeine [Codeine] Allergy Mild Hives Verified 06/18/17 04:12 telmisartan [From Micardis] Allergy Mild Hives Verified 06/18/17 04:12 venom-honey bee Allergy Anaphylaxis Verified 06/18/17 04:12 [bee venom (honey bee)] lisinopril AdvReac Anxiety Verified 06/18/17 04:12 NSAIDS (Non-Steroidal AdvReac Emesis Verified 06/18/17 04:12 Anti-Inflamma tramadol HCl * [From Ultram] AdvReac Unknown Verified 06/18/17 04:12 Ghost peppers Allergy Anaphylaxis Uncoded 06/18/17 04:12 squash Allergy Anaphylaxis Uncoded 06/18/17 04:12 zuccinni Allergy Anaphylaxis Uncoded 06/18/17 04:12 - Social History Does the pt smoke?: Yes Smoking Status: Current every day smoker Does the pt drink ETOH?: No Does the pt have substance abuse?: No - Immunizations Immunizations are current?: Yes Immunizations: TDAP >10years/unknown, Other immun not current - POLST Patient has POLST: No PD ED PE NORMAL - Vitals Vital signs reviewed: Yes - General General: Alert and oriented X 3, No acute distress, Other (obese) - Back Back: No CVA TTP, No spinal TTP - Neuro Neuro: Alert and oriented X 3, No motor deficit, No sensory deficit, Other (2+/ 4 bilateral patellar DTR) Results - Vitals Vitals: Vital Signs - 24 hr 06/18/17 05:35 Heart Rate 80 Respiratory 16 Rate Blood Pressure 180/99 H O2 Saturation 98 Oxygen O2 Source Room air PD MEDICAL DECISION MAKING - ED course Complexity details: reviewed old records, considered differential, d/w patient ED course: patient says recent MRI (last month) showed two bulging discs (per patient) in lumbar spine. I cannot access results of this study at this time, but this information would not be contributory given lack of elements on HPI and physical exam tk suggest emergent spinal pathology such as cauda equina syndrome. Several factors make options for this chronic pain limited at this time, including frequency of ED visits, transportation issue (drove self to ED), and stated allergies to several classes of analgesics. he also says lidocaine patches and steroids have not had beneficial effect in the past for him. I explained to him why I did not feel narcotic medication would be appropriate at this time, and he was cooperative and understanding. he did not bargain or argue with this, and was agreeable to IM toradol and discharge. NSAID allergy is listed, but he describes gastrointestinal issues in the past due to regular NSAID use and not a true allergy. we specifically discussed toradol and he says he has not had bad reactions to this in the past, and that it has sometimes helped his back pain. he plans to contact his prescribing physician in the morning to discuss options for follow-up Departure - Departure Disposition: 01 Home, Self Care Clinical Impression: Chronic back pain Qualifiers: Back pain location: low back pain Back pain laterality: bilateral Sciatica presence: with sciatica Sciatica laterality: bilateral sciatica Qualified Code(s ): M54.42 - Lumbago with sciatica, left side Condition: Good Instructions: ED Chronic Pain Management, ED Sciatica Follow-Up: WESTLEY TRIANA [Primary Care Provider] - Discharge Date/Time: 06/18/17 05:39
[2017-06-18] MEDS ORDERED: KETOROLAC 60 MG/2 ML VIAL IM STA (05:09)
[2017-06-18 05:40] VITALS: BP 180/99
== END 2017-06-18 05:39 | disposition home or self-care (01) ==
LOC: ED 04:06
DX: M54.42 Lumbago with sciatica, left side (principal); E78.00 Pure hypercholesterolemia, unspecified; I11.0 Hypertensive heart disease with heart failure; I50.9 Heart failure, unspecified; F17.200 Nicotine dependence, unspecified, uncomplicated; Z79.82 Long term (current) use of aspirin
CPT/HCPCS: 96372; 99283

== ENCOUNTER 2017-06-21 05:30 | Emergency (ER) | payer MEDICARE, MEDICAID ==
--- NOTE | 2017-06-21 05:47 | ED Physician Documentation ---
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 No: Fever, Chest pain / discomfort, Palpitations, Bilateral edema, Unilateral edema Similar symptoms before: Diagnosis (asthma) Recently seen: Emergency Dept (T+R 3 days ago for back pain.) <Dino Call - Last Filed: 06/21/17 09:52> <Derek Cook - Last Filed: 06/21/17 18:22> - Stated complaint Stated Complaint: DIFF BREATHING - Chief complaint Chief Complaint: Resp - Additional information Additional information: c/o dyspnea x 2 hours, with CT TECH cough since yesterday. feels similar to asthma exacerbations, although he also had similar symptoms a few weeks ago for which he was seen at [place] ([place]) and diagnosed with pneumonia ( prescribed steroids and zithromax). 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 not currently on diuretics, but has been on lasix in the past, both inpatient and outpatient setting (Dino Call) Review of Systems Constitutional: denies: Fever, Chills, Sweats Cardiac: denies: Chest pain / pressure, Palpitations, Pedal edema, Calf pain Respiratory: reports: Dyspnea, Cough, Wheezing. denies: Hemoptysis GI: reports: Reviewed and negative Musculoskeletal: denies: Extremity swelling <Dino Call - Last Filed: 06/21/17 09:52> PD PAST MEDICAL HISTORY - Past Medical History Past Medical History: Yes Cardiovascular: Congestive heart failure, Hypertension, High cholesterol Respiratory: Asthma, Shortness of breath Neuro: Headache/migraine, Head injury, Motion sickness, Fainting Endocrine/Autoimmune: None GI: None, Crohn's disease, Other : None HEENT: None, Other Psych: Depression, Anxiety, Post traumatic stress disorder, Other Musculoskeletal: Osteoarthritis, Fibromyalgia, Fatigue, Chronic back pain Derm: Eczema - Past Surgical History Past Surgical History: Yes General: Appendectomy Cardiovascular: Other HEENT: Cataracts - Social History Does the pt smoke?: Yes Smoking Status: Current every day smoker Does the pt drink ETOH?: No Does the pt have substance abuse?: No - Immunizations Immunizations are current?: Yes Immunizations: TDAP >10years/unknown, Other immun not current - POLST Patient has POLST: No <Dino Call - Last Filed: 06/21/17 09:52> <Derek Cook - Last Filed: 06/21/17 18:22> - Present Medications Home Medications: Ambulatory Orders Medication Instructions Recorded Confirmed Pregabalin [Lyrica] 300 mg PO BID 05/14/14 03/31/17 sulfaSALAzine [Sulfasalazine] 1,000 mg PO TID 06/10/14 03/31/17 Albuterol Sulfate [Proair Hfa 2 puffs INH Q6HR PRN 07/18/14 03/31/17 Inhaler] Meclizine HCl 25 mg PO Q6H PRN #30 tablet 01/06/15 03/31/17 Promethazine [Phenergan] 25 - 50 mg PO Q6H PRN #30 tab 01/06/15 03/31/17 Alprazolam [Xanax] 2 mg PO DAILY 10/19/16 03/31/17 Divalproex Sodium [Depakote] 500 mg PO BID 10/19/16 03/31/17 tiZANidine [Zanaflex] 8 mg PO TID PRN 10/19/16 03/31/17 Verapamil HCl [Verapamil ER] 120 mg PO DAILY 02/04/17 03/31/17 ALPRAZolam [Alprazolam] 4 mg PO QPM 02/10/17 03/31/17 Aspirin [Aspirin EC] 81 mg PO DAILY 02/10/17 03/31/17 Budesonide/Formoterol Fumarate 2 puffs INH BID 02/10/17 03/31/17 [Symbicort 160-4.5 Mcg Inhaler] Duloxetine HCl 60 mg PO BID 02/10/17 03/31/17 Ferrous Gluconate 324 mg PO DAILY 02/10/17 03/31/17 Milnacipran HCl [Savella] 50 mg PO BID 02/10/17 03/31/17 Nicotine [Nicotine Patch] 14 mg TOP DAILY 02/10/17 03/14/17 Nitroglycerin 1 spray SL Q5M PRN 02/10/17 03/31/17 Prazosin HCl 2 mg PO DAILY 02/10/17 03/31/17 Prazosin HCl 4 mg PO QPM 02/10/17 03/31/17 raNITIdine [Zantac] 150 mg PO BID 02/10/17 03/31/17 Fluticasone [Flonase] 1 sprays JUAN FRANCISCO DAILY #5 bottle 02/11/17 03/31/17 Metoprolol Succinate [Toprol Xl] 100 mg PO BID #60 tab.er.24h 02/11/17 03/31/17 Oxycodone HCl/Acetaminophen 1 each PO Q8HR PRN #10 tablet 05/21/17 [Percocet 10-325 mg Tablet] Levofloxacin [Levaquin] 500 mg PO DAILY #7 tablet 06/21/17 - Allergies Allergies/Adverse Reactions: Allergies Allergy/AdvReac Type Severity Reaction Status Date / Time amitriptyline [Amitriptyline] Allergy Mild Anxiety Verified 06/21/17 05:37 codeine [Codeine] Allergy Mild Hives Verified 06/21/17 05:37 telmisartan [From Micardis] Allergy Mild Hives Verified 06/21/17 05:37 venom-honey bee Allergy Anaphylaxis Verified 06/21/17 05:37 [bee venom (honey bee)] lisinopril AdvReac Anxiety Verified 06/21/17 05:37 NSAIDS (Non-Steroidal AdvReac Emesis Verified 06/21/17 05:37 Anti-Inflamma tramadol HCl * [From Ultram] AdvReac Unknown Verified 06/21/17 05:37 Ghost peppers Allergy Anaphylaxis Uncoded 06/21/17 05:37 squash Allergy Anaphylaxis Uncoded 06/21/17 05:37 zuccinni Allergy Anaphylaxis Uncoded 06/21/17 05:37 PD ED PE NORMAL - Vitals Vital signs reviewed: Yes - General General: Alert and oriented X 3, No acute distress, Well developed/nourished - HEENT HEENT: Moist mucous membranes - Neck Neck: Supple, no meningeal sign - Cardiac Cardiac: RRR, No murmur - Respiratory Respiratory: No respiratory distress - Extremities Extremities: No edema - Neuro Neuro: Alert and oriented X 3 <Call,Dino A Last Filed: 06/21/17 09:52> PD ED PE EXPANDED - Respiratory Respiratory: Wheezing, Decreased breath sounds <Dino Call Last Filed: 06/21/17 09:52> Results - Rads (name of study) chest xray Radiology: Prelim report reviewed, See rad report <Dino Call Last Filed: 06/21/17 09:52> - Vitals Vitals: Vital Signs - 24 hr 06/21/17 06/21/17 06/21/17 05:34 06:10 07:21 Temperature 36.5 C Heart Rate 88 87 86 Respiratory 22 18 20 Rate Blood Pressure 155/100 H O2 Saturation 95 06/21/17 06/21/17 06/21/17 08:11 10:17 11:34 Temperature Heart Rate 92 85 89 Respiratory 20 14 16 Rate Blood Pressure 154/81 H 163/91 H 152/83 H O2 Saturation 96 94 94 Oxygen O2 Source Room air - Labs Labs: Laboratory Tests 06/21/17 06/21/17 06/21/17 08:13 08:13 08:13 WBC 10.5 RBC 4.19 L Hgb 13.0 L Hct 38.5 L MCV 91.8 MCH 31.0 MCHC 33.7 RDW 16.5 H Plt Count 147 MPV 8.2 Neut # 8.7 H Lymph # 1.0 L Noble # 0.6 Eos # 0.0 Baso # 0.2 H Absolute Nucleated RBC 0.00 Nucleated RBC % 0.0 Sodium 139 Potassium 3.5 Chloride 105 Carbon Dioxide 25 Anion Gap 9.0 BUN 10 Creatinine 0.7 Estimated GFR (MDRD) 123 Glucose 126 H Lactic Acid Calcium 8.6 Troponin I < 0.04 B-Natriuretic Peptide 06/21/17 06/21/17 08:13 08:13 WBC RBC Hgb Hct MCV MCH MCHC RDW Plt Count MPV Neut # Lymph # Noble # Eos # Baso # Absolute Nucleated RBC Nucleated RBC % Sodium Potassium Chloride Carbon Dioxide Anion Gap BUN Creatinine Estimated GFR (MDRD) Glucose Lactic Acid 2.5 H Calcium Troponin I B-Natriuretic Peptide 357 H PD MEDICAL DECISION MAKING - ED course Complexity details: reviewed old records, reviewed results, re-evaluated patient , considered differential, d/w patient <Dino Call - Last Filed: 06/21/17 09:52> - ED course Complexity details: reviewed old records, reviewed results, re-evaluated patient , considered differential, d/w patient <Derek Cook - Last Filed: 06/21/17 18:22> - ED course ED course: on reexam after duoneb, patient has improved air movement and decreased wheezing (now only end-expiratory bibasilar wheezing); despite this, he reports feeling worse. CXR interpreted by radiologist as possible left upper lobe infiltrate. given prednisone 60mg, levaquin 500mg po, and albuterol neb. on next reevaluation, he says he feels worse. auscultation of lungs reveals good air flow, no wheezing, but now has rales bilaterally and some rhonchi. he appears to be mildly tachypneic. at this point, blood tests and EKG ordered. I turned case over to Dr. Cook at change of shift, 7 AM, as tests still pending. Early in ED stay, he requests 60mg IM toradol for his chronic back pain, which was ordered and given. (Dino Call) At change of shift the patient's care was turned over to me pending results of lab work. His BNP came back mildly elevated at 357. His troponin is normal at less than 0.04. Further treatment in the emergency department included administration of Lasix 20 mg IV. The patient was also complaining of persistent headache, for which Ofirmev 1 g was administered IV. The patient diuresed quite well after the diuretic therapy. His breathing felt subjectively improved, and on re-auscultation of his chest I no longer appreciate rales or wheezes. He is being discharged with prescription for Levaquin, given the radiologist's interpretation of left upper lobe infiltrate. I did not start him on an outpatient diuretic therapy, but that may be a consideration for his primary physician. I discussed with him the diagnosis, outpatient treatment and follow- up, as well as potentially worrisome signs or symptoms that should prompt reevaluation in the emergency department. (Derek Cook) Departure <Dino Call - Last Filed: 06/21/17 09:52> <Derek Cook - Last Filed: 06/21/17 18:22> - Departure Disposition: 01 Home, Self Care Clinical Impression: Congestive heart failure Qualifiers: Heart failure type: unspecified Heart failure chronicity: acute on chronic Qualified Code(s): I50.9 - Heart failure, unspecified Pneumonia Qualifiers: Pneumonia type: due to unspecified organism Laterality: left Lung location: upper lobe of lung Qualified Code(s): J18.1 - Lobar pneumonia, unspecified organism Hypertension Qualifiers: Hypertension type: unspecified secondary hypertension Qualified Code(s): I15.9 - Secondary hypertension, unspecified Condition: Stable Instructions: ED CHF General, ED Pneumonia Adult Follow-Up: Trenton Garrido [place] [Physician No Access] - Prescriptions: Levofloxacin [Levaquin] 500 mg PO DAILY #7 tablet Comments: Take the antibiotic daily as prescribed. Continue using your inhaler therapy as previously prescribed. Follow up with your primary physician within 1 week. Call to schedule appointment. Return to the emergency department if you develop increasing difficulty breathing, or otherwise worsening symptoms. Discharge Date/Time: 06/21/17 11:35
[2017-06-21] MEDS ORDERED: predniSONE 20 MG TABLET PO STA (06:03)
[2017-06-21] MEDS ORDERED: IPRATROPIUM/ALBUTEROL 3 ML NEB INH STA (06:04)
--- NOTE | 2017-06-21 06:42 | XRAY Preliminary Report ---
Exam: XR CHEST 2 VIEW X-RAY IMPRESSION: 1. Possible left upper lobe infiltrate. [facility] SITE ID: [id number]
--- NOTE | 2017-06-21 06:42 | XRAY Report ---
EXAM: CHEST RADIOGRAPHY EXAM DATE: 06/21/2017 06:33 AM. CLINICAL HISTORY: Dyspnea. COMPARISON: 03/31/2017. TECHNIQUE: 2 views. FINDINGS: Lungs/Pleura: Possible left upper lobe infiltrate. No pleural effusion seen. No pneumothorax. Mediastinum: Heart and mediastinal contours are unremarkable. Other: None. IMPRESSION: 1. Possible left upper lobe infiltrate. [facility] Referring Provider Line: [phone] SITE ID: [id number]
[2017-06-21] MEDS ORDERED: ALBUTEROL NEB 2.5 MG/3 ML INH STA (07:10)
[2017-06-21] MEDS ORDERED: KETOROLAC 60 MG/2 ML VIAL IM STA (07:10)
[2017-06-21] MEDS ORDERED: levoFLOXacin 250 MG TABLET PO STA (07:33)
[2017-06-21 08:25] LABS: BASOPHILS # (AUTO) 0.2 10^3/uL (0.0-0.1); BASOPHILS % (AUTO) 1.5 %; LYMPHOCYTES % (AUTO) 9.3 %; MEAN CORPUSCULAR HGB CONC 33.7 g/dL (32.0-36.0); MEAN CORPUSCULAR VOLUME 91.8 fL (80.0-94.0); MEAN PLATELET VOLUME 8.2 fL (7.4-11.4); MONOCYTES # (AUTO) 0.6 10^3/uL (0.0-1.0); NEUTROPHILS # (AUTO) 8.7 10^3/uL (1.5-6.6); NEUTROPHILS % (AUTO) 83.2 %; PLT - PLATELET COUNT 147 10^3/uL (130-450); RED BLOOD COUNT 4.19 10^6/uL (4.70-6.10); RED CELL DISTRIBUTION WIDTH 16.5 % (12.0-15.0); WHITE BLOOD COUNT 10.5 x10^3/uL (4.8-10.8)
[2017-06-21 08:38] LABS: CALCIUM 8.6 mg/dL (8.5-10.3); CREATININE 0.7 mg/dL (0.6-1.2)
[2017-06-21] MEDS ORDERED: ACETAMINOPHEN 1,000 MG/100 ML 100 ML IV STA (08:48)
[2017-06-21] MEDS ORDERED: FUROSEMIDE 20 MG/2 ML VIAL IVP STA (08:49)
[2017-06-21 11:35] VITALS: BP 152/83
== END 2017-06-21 11:35 | disposition home or self-care (01) ==
LOC: ED 05:30
DX: I11.0 Hypertensive heart disease with heart failure (principal); I50.9 Heart failure, unspecified; J18.9 Pneumonia, unspecified organism; E78.00 Pure hypercholesterolemia, unspecified; J45.909 Unspecified asthma, uncomplicated; K50.90 Crohn's disease, unspecified, without complications; M79.7 Fibromyalgia; M19.90 Unspecified osteoarthritis, unspecified site; F17.200 Nicotine dependence, unspecified, uncomplicated; Z79.82 Long term (current) use of aspirin; R51 Headache; M54.5 Low back pain; G89.29 Other chronic pain
CPT/HCPCS: 36415; 71046; 80048; 83605; 83880; 84484; 85025; 93005; 94640; 96365; 96372; 96375; 99283; 99284; A9270; J0131; J7512

== ENCOUNTER 2017-07-11 08:32 | Emergency (ER) | payer MEDICARE, MEDICAID ==
[2017-07-11] MEDS ORDERED: VERAPAMIL ER 180 MG TABLET PO STA (09:30)
[2017-07-11] MEDS ORDERED: PROPARACAINE 0.5% OPHTH DROPS 15 ML RIGHTEYE STA (09:31)
--- NOTE | 2017-07-11 09:34 | ED Physician Documentation ---
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 no UV also seen at [facility] for high BP yesterday and his verapamil was inc to 180 ER but he has not taken it yet because pharm not open yet Review of Systems Eyes: reports: Irritation PD PAST MEDICAL HISTORY - Past Medical History Cardiovascular: Congestive heart failure, Hypertension, High cholesterol Respiratory: Asthma, Shortness of breath Neuro: Headache/migraine, Head injury, Motion sickness, Fainting Endocrine/Autoimmune: None GI: None, Crohn's disease, Other : None HEENT: None, Other Psych: Depression, Anxiety, Post traumatic stress disorder, Other Musculoskeletal: Osteoarthritis, Fibromyalgia, Fatigue, Chronic back pain Derm: Eczema - Past Surgical History Past Surgical History: Yes General: Appendectomy Cardiovascular: Other HEENT: Cataracts - Present Medications Home Medications: Ambulatory Orders Medication Instructions Recorded Confirmed Pregabalin [Lyrica] 300 mg PO BID 05/14/14 03/31/17 sulfaSALAzine [Sulfasalazine] 1,000 mg PO TID 06/10/14 03/31/17 Albuterol Sulfate [Proair Hfa 2 puffs INH Q6HR PRN 07/18/14 03/31/17 Inhaler] Meclizine HCl 25 mg PO Q6H PRN #30 tablet 01/06/15 03/31/17 Promethazine [Phenergan] 25 - 50 mg PO Q6H PRN #30 tab 01/06/15 03/31/17 Alprazolam [Xanax] 2 mg PO DAILY 10/19/16 03/31/17 Divalproex Sodium [Depakote] 500 mg PO BID 10/19/16 03/31/17 tiZANidine [Zanaflex] 8 mg PO TID PRN 10/19/16 03/31/17 Verapamil HCl [Verapamil ER] 120 mg PO DAILY 02/04/17 03/31/17 ALPRAZolam [Alprazolam] 4 mg PO QPM 02/10/17 03/31/17 Aspirin [Aspirin EC] 81 mg PO DAILY 02/10/17 03/31/17 Budesonide/Formoterol Fumarate 2 puffs INH BID 02/10/17 03/31/17 [Symbicort 160-4.5 Mcg Inhaler] Duloxetine HCl 60 mg PO BID 02/10/17 03/31/17 Ferrous Gluconate 324 mg PO DAILY 02/10/17 03/31/17 Milnacipran HCl [Savella] 50 mg PO BID 02/10/17 03/31/17 Nicotine [Nicotine Patch] 14 mg TOP DAILY 02/10/17 03/14/17 Nitroglycerin 1 spray SL Q5M PRN 02/10/17 03/31/17 Prazosin HCl 2 mg PO DAILY 02/10/17 03/31/17 Prazosin HCl 4 mg PO QPM 02/10/17 03/31/17 raNITIdine [Zantac] 150 mg PO BID 02/10/17 03/31/17 Fluticasone [Flonase] 1 sprays JUAN FRANCISCO DAILY #5 bottle 02/11/17 03/31/17 Metoprolol Succinate [Toprol Xl] 100 mg PO BID #60 tab.er.24h 02/11/17 03/31/17 Oxycodone HCl/Acetaminophen 1 each PO Q8HR PRN #10 tablet 05/21/17 [Percocet 10-325 mg Tablet] Levofloxacin [Levaquin] 500 mg PO DAILY #7 tablet 06/21/17 Erythromycin Base [Erythromycin] 1 applic OP Q4H #1 tub 07/11/17 - Allergies Allergies/Adverse Reactions: Allergies Allergy/AdvReac Type Severity Reaction Status Date / Time amitriptyline [Amitriptyline] Allergy Mild Anxiety Verified 06/21/17 05:37 codeine [Codeine] Allergy Mild Hives Verified 06/21/17 05:37 telmisartan [From Micardis] Allergy Mild Hives Verified 06/21/17 05:37 venom-honey bee Allergy Anaphylaxis Verified 06/21/17 05:37 [bee venom (honey bee)] lisinopril AdvReac Anxiety Verified 06/21/17 05:37 NSAIDS (Non-Steroidal AdvReac Emesis Verified 06/21/17 05:37 Anti-Inflamma tramadol HCl * [From Ultram] AdvReac Unknown Verified 06/21/17 05:37 Ghost peppers Allergy Anaphylaxis Uncoded 06/21/17 05:37 squash Allergy Anaphylaxis Uncoded 06/21/17 05:37 zuccinni Allergy Anaphylaxis Uncoded 06/21/17 05:37 - Social History Does the pt smoke?: Yes Smoking Status: Current every day smoker Does the pt drink ETOH?: No Does the pt have substance abuse?: No - Immunizations Immunizations are current?: Yes Immunizations: TDAP >10years/unknown, Other immun not current - POLST Patient has POLST: No PD ED PE NORMAL - Vitals Vital signs reviewed: Yes - HEENT HEENT: PERRL (very dilated approx 8 mm, JONATHAN, no FB under lid, globes soft no TA TTP, with flourescein small abrasion over iris medially but no corneal abrasion and no FB, pain completely relieved with proparacaine) Results - Vitals Vitals: Vital Signs - 24 hr 07/11/17 07/11/17 08:48 11:39 Temperature 36.1 C L Heart Rate 76 Respiratory 18 16 Rate Blood Pressure 208/94 H 167/94 H O2 Saturation 96 95 Oxygen O2 Source Room air Departure - Departure Disposition: 01 Home, Self Care Clinical Impression: Eye abrasion Qualifiers: Encounter type: initial encounter Laterality: right Qualified Code(s): S05.8X1A - Other injuries of right eye and orbit, initial encounter Condition: Good Instructions: ED Eye Injury Corneal Abrasion Prescriptions: Erythromycin Base [Erythromycin] 1 applic OP Q4H #1 tub Discharge Date/Time: 07/11/17 11:39
[2017-07-11 11:39] VITALS: BP 167/94
== END 2017-07-11 11:39 | disposition home or self-care (01) ==
LOC: ED 08:32
DX: S05.8X1A Other injuries of right eye and orbit, initial encounter (principal); X58.XXXA Exposure to other specified factors, initial encounter; I11.0 Hypertensive heart disease with heart failure; I50.9 Heart failure, unspecified; E78.00 Pure hypercholesterolemia, unspecified; J45.909 Unspecified asthma, uncomplicated; M79.7 Fibromyalgia; F41.9 Anxiety disorder, unspecified; Z79.82 Long term (current) use of aspirin; F32.9 Major depressive disorder, single episode, unspecified; F17.200 Nicotine dependence, unspecified, uncomplicated
CPT/HCPCS: 99283; A9270; J3490

== ENCOUNTER 2017-07-20 09:33 | Outpatient (CLI) | payer MEDICARE, MEDICAID | END 2017-07-20 09:34 | disposition critical access hospital (66) | LOC: EMS 09:33 | PROVIDERS: ATTEND Surgery | DX: R47.81 Slurred speech (principal); R53.1 Weakness | CPT/HCPCS: A0425; A0427 ==

== ENCOUNTER 2017-07-20 09:57 | Emergency (ER) | payer MEDICARE, MEDICAID ==
[2017-07-20 10:09] VITALS: BP 134/84
--- NOTE | 2017-07-20 10:13 | ED Physician Documentation ---
History of Present Illness - Stated complaint Stated Complaint: WEAKNESS - Chief complaint Chief Complaint: General - History obtained from History obtained from: Patient, EMS - History of Present Illness Timing: Today Pain level max: 7 Pain level now: 7 Improved by: rest Worsened by: nothing - Additonal information Additional information: Patient is a 46-year-old male who states that he is feeling weak and tired today. Has a history of insomnia and was given doxepin to start last night for sleep. His psychiatrist started this at 25 mg. He states he still feels drowsy this morning. No focal weakness or numbness. Does have a headache and states that headaches are fairly common for him. This is no different than his normal headache. He is requesting "something narcotic for the headache". No fevers. No recent falls or head injuries. No other new medications. Review of Systems Ten Systems: 10 systems reviewed and negative Constitutional: denies: Fever, Chills Ears: denies: Ear pain Nose: denies: Rhinorrhea / runny nose, Congestion Throat: denies: Sore throat Cardiac: denies: Chest pain / pressure Respiratory: denies: Cough GI: denies: Abdominal Pain, Nausea, Vomiting, Diarrhea Skin: denies: Rash Musculoskeletal: denies: Neck pain, Back pain Neurologic: reports: Headache (gradual onset, several days.). denies: Focal weakness, Numbness, Confused, Altered mental status Psychiatric: denies: Suicidal, Homicidal, Hallucinations, Delusions, Anxiety PD PAST MEDICAL HISTORY - Past Medical History Past Medical History: Yes Cardiovascular: Congestive heart failure, Hypertension, High cholesterol Respiratory: Asthma, Shortness of breath Endocrine/Autoimmune: None GI: None, Crohn's disease, Other : None HEENT: None, Other Psych: Depression, Anxiety, Post traumatic stress disorder, Other Musculoskeletal: Osteoarthritis, Fibromyalgia, Fatigue, Chronic back pain Derm: Eczema - Past Surgical History Past Surgical History: Yes General: Appendectomy Cardiovascular: Other HEENT: Cataracts - Present Medications Home Medications: Ambulatory Orders Medication Instructions Recorded Confirmed Pregabalin [Lyrica] 300 mg PO BID 05/14/14 03/31/17 sulfaSALAzine [Sulfasalazine] 1,000 mg PO TID 06/10/14 03/31/17 Albuterol Sulfate [Proair Hfa 2 puffs INH Q6HR PRN 07/18/14 03/31/17 Inhaler] Meclizine HCl 25 mg PO Q6H PRN #30 tablet 01/06/15 03/31/17 Promethazine [Phenergan] 25 - 50 mg PO Q6H PRN #30 tab 01/06/15 03/31/17 Alprazolam [Xanax] 2 mg PO DAILY 10/19/16 03/31/17 Divalproex Sodium [Depakote] 500 mg PO BID 10/19/16 03/31/17 tiZANidine [Zanaflex] 8 mg PO TID PRN 10/19/16 03/31/17 Verapamil HCl [Verapamil ER] 120 mg PO DAILY 02/04/17 03/31/17 ALPRAZolam [Alprazolam] 4 mg PO QPM 02/10/17 03/31/17 Aspirin [Aspirin EC] 81 mg PO DAILY 02/10/17 03/31/17 Budesonide/Formoterol Fumarate 2 puffs INH BID 02/10/17 03/31/17 [Symbicort 160-4.5 Mcg Inhaler] Duloxetine HCl 60 mg PO BID 02/10/17 03/31/17 Ferrous Gluconate 324 mg PO DAILY 02/10/17 03/31/17 Milnacipran HCl [Savella] 50 mg PO BID 02/10/17 03/31/17 Nicotine [Nicotine Patch] 14 mg TOP DAILY 02/10/17 03/14/17 Nitroglycerin 1 spray SL Q5M PRN 02/10/17 03/31/17 Prazosin HCl 2 mg PO DAILY 02/10/17 03/31/17 Prazosin HCl 4 mg PO QPM 02/10/17 03/31/17 raNITIdine [Zantac] 150 mg PO BID 02/10/17 03/31/17 Fluticasone [Flonase] 1 sprays JUAN FRANCISCO DAILY #5 bottle 02/11/17 03/31/17 Metoprolol Succinate [Toprol Xl] 100 mg PO BID #60 tab.er.24h 02/11/17 03/31/17 Oxycodone HCl/Acetaminophen 1 each PO Q8HR PRN #10 tablet 05/21/17 [Percocet 10-325 mg Tablet] Levofloxacin [Levaquin] 500 mg PO DAILY #7 tablet 06/21/17 Erythromycin Base [Erythromycin] 1 applic OP Q4H #1 tub 07/11/17 - Allergies Allergies/Adverse Reactions: Allergies Allergy/AdvReac Type Severity Reaction Status Date / Time amitriptyline [Amitriptyline] Allergy Mild Anxiety Verified 06/21/17 05:37 codeine [Codeine] Allergy Mild Hives Verified 06/21/17 05:37 telmisartan [From Micardis] Allergy Mild Hives Verified 06/21/17 05:37 venom-honey bee Allergy Anaphylaxis Verified 06/21/17 05:37 [bee venom (honey bee)] lisinopril AdvReac Anxiety Verified 06/21/17 05:37 NSAIDS (Non-Steroidal AdvReac Emesis Verified 06/21/17 05:37 Anti-Inflamma tramadol HCl * [From Ultram] AdvReac Unknown Verified 06/21/17 05:37 Ghost peppers Allergy Anaphylaxis Uncoded 06/21/17 05:37 squash Allergy Anaphylaxis Uncoded 06/21/17 05:37 zuccinni Allergy Anaphylaxis Uncoded 06/21/17 05:37 - Social History Does the pt smoke?: Yes Smoking Status: Current every day smoker Does the pt drink ETOH?: No Does the pt have substance abuse?: No - Immunizations Immunizations are current?: Yes Immunizations: TDAP >10years/unknown, Other immun not current - POLST Patient has POLST: No PD ED PE NORMAL - Vitals Vital signs reviewed: Yes - General General: Alert and oriented X 3, No acute distress, Well developed/nourished - HEENT HEENT: PERRL, EOMI, Moist mucous membranes, Pharynx benign - Neck Neck: Supple, no meningeal sign - Cardiac Cardiac: RRR - Respiratory Respiratory: No respiratory distress, Clear bilaterally - Abdomen Abdomen: Soft, Non tender, Non distended - Back Back: No spinal TTP - Derm Derm: Warm and dry, No rash - Extremities Extremities: No calf tenderness / cord - Neuro Neuro: Alert and oriented X 3, shearer screen measurer and trimmer 2-12 intact, No motor deficit, No sensory deficit, Normal speech Results - Vitals Vitals: Vital Signs - 24 hr 07/20/17 10:01 Temperature 36.5 C Heart Rate 74 Respiratory 19 Rate Blood Pressure 134/84 H O2 Saturation 95 Oxygen O2 Source Room air - Labs Labs: Laboratory Tests 07/20/17 07/20/17 07/20/17 10:19 10:19 10:40 WBC 5.1 RBC 4.25 L Hgb 13.3 L Hct 39.5 L MCV 92.9 MCH 31.2 H MCHC 33.6 RDW 15.9 H Plt Count 160 MPV 7.8 Neut # 3.4 Lymph # 1.3 L [place] # 0.4 Eos # 0.0 Baso # 0.0 Absolute Nucleated RBC 0.00 Nucleated RBC % 0.1 Sodium 140 Potassium 3.7 Chloride 105 Carbon Dioxide 26 Anion Gap 9.0 BUN 11 Creatinine 0.8 Estimated GFR (MDRD) 105 Glucose 103 H Calcium 9.1 Total Bilirubin 0.7 AST 16 ALT 17 Alkaline Phosphatase 38 L Total Protein 6.1 L Albumin 3.8 Globulin 2.3 Albumin/Globulin Ratio 1.7 Lipase 21 L Urine Color DARK YELLOW Urine Clarity CLEAR Urine pH 6.0 Ur Specific [place] >=1.030 H Urine Protein TRACE Urine Glucose (UA) NEGATIVE Urine Ketones NEGATIVE Urine Occult Blood NEGATIVE Urine Nitrite NEGATIVE Urine Bilirubin NEGATIVE Urine Urobilinogen 0.2 (NORMAL) Ur Leukocyte Esterase NEGATIVE Ur Microscopic Review NOT INDICATED Urine Culture Comments NOT INDICATED Urine Opiates Screen NEGATIVE Ur Oxycodone Screen POSITIVE H Urine Methadone Screen NEGATIVE Ur Propoxyphene Screen NEGATIVE Ur Barbiturates Screen NEGATIVE Ur Tricyclics Screen POSITIVE H Ur Phencyclidine Scrn NEGATIVE Ur Amphetamine Screen NEGATIVE U Methamphetamines Scrn NEGATIVE U Benzodiazepines Scrn POSITIVE H Urine Cocaine Screen NEGATIVE U Cannabinoids Screen POSITIVE H PD MEDICAL DECISION MAKING - ED course Complexity details: reviewed old records, reviewed results, re-evaluated patient , considered differential, d/w patient ED course: Patient is a 46-year-old male who presents to the emergency department feeling drowsy after taking doxepin. Recommend he stop this and talk to his doctor about alternative medications. He is not overly drowsy in the emergency department and ambulating quite well with his cane. He did request pain medication for his head, but I told him as he was already feeling drowsy and did not feel comfortable giving him a narcotic pain medication that would alter him. Patient also received oxycodone last week and should still have oxycodone at home if he chooses to take this. Recommended that he do not take the oxycodone if he is still feeling drowsy. Patient counseled regarding signs and symptoms for which I believe and urgent re-evaluation would be necessary. Patient with good understanding of and agreement to plan and is comfortable going home at this time This document was made in part using voice recognition software. While efforts are made to proofread this document, sound alike and grammatical errors may occur. Departure - Departure Disposition: 01 Home, Self Care Clinical Impression: Medication side effect, Drowsiness Condition: Good Instructions: Doxepin oral tablets Follow-Up: WESTLEY TRIANA [Primary Care Provider] - Within 3 Days Comments: Stop the doxepin as it appears to make you excessively sleepy. Follow up with your doctor to talk about alternative medications. Discharge Date/Time: 07/20/17 12:00 NIHSS - Time Time: 10:06 - Level of Consciousness Level of consciousness: (0) Alert, Keenly responsive LOC Questions: (0) Answers both Q's correct LOC Commands: (0) Performs both correctly - Gaze Best Gaze: (0) Normal - Visual Visual: (0) No loss - Facial Palsy Facial Palsy: (0) Normal, symmetrical movement - Motor Arms (both separate) Motor Arm (right): (0) No drift Motor Arm (left): (0) No drift - Motor Legs (both separate) Motor Leg (right): (0) No drift Motor Leg (left): (0) No drift - Limb Ataxia Limb Ataxia: (0) Absent - Sensory Sensory: (0) Normal - Best Language Best Language: (0) No aphasia - Dysarthria Dysarthria: (0) Normal - Extinction and Inattention (formally neg Extinction and inattention: (0) No abnormality - Total Score/Results Total Score/Result: 0
[2017-07-20 10:28] LABS: EOSINOPHILS % (AUTO) 0.1 %; HGB - HEMOGLOBIN 13.3 g/dL (14.0-18.0); LYMPHOCYTES # (AUTO) 1.3 10^3/uL (1.5-3.5); LYMPHOCYTES % (AUTO) 24.6 %; MEAN CORPUSCULAR HEMOGLOBIN 31.2 pg (27.0-31.0); MEAN CORPUSCULAR HGB CONC 33.6 g/dL (32.0-36.0); MEAN CORPUSCULAR VOLUME 92.9 fL (80.0-94.0); MEAN PLATELET VOLUME 7.8 fL (7.4-11.4); MONOCYTES # (AUTO) 0.4 10^3/uL (0.0-1.0); MONOCYTES % (AUTO) 8.6 %; NEUTROPHILS # (AUTO) 3.4 10^3/uL (1.5-6.6); NEUTROPHILS % (AUTO) 65.7 %; PLT - PLATELET COUNT 160 10^3/uL (130-450); RED BLOOD COUNT 4.25 10^6/uL (4.70-6.10); RED CELL DISTRIBUTION WIDTH 15.9 % (12.0-15.0); WHITE BLOOD COUNT 5.1 x10^3/uL (4.8-10.8)
[2017-07-20 10:44] LABS: ALBUMIN 3.8 g/dL (3.2-5.5); ALBUMIN/GLOBULIN RATIO 1.7 (1.0-2.2); BILIRUBIN,TOTAL 0.7 mg/dL (0.2-1.0); CALCIUM 9.1 mg/dL (8.5-10.3); CREATININE 0.8 mg/dL (0.6-1.2); TOTAL PROTEIN 6.1 g/dL (6.7-8.2)
[2017-07-20 10:53] LABS: MUDS CUTOFF CONCENTRATIONS CUTOFF CONC BELOW:
[2017-07-20 10:55] LABS: GLUCOSE, URINE (UA) NEGATIVE (NEGATIVE); KETONES,URINE (UA) NEGATIVE (NEGATIVE); LEUKOCYTE ESTERASE, URINE NEGATIVE (NEGATIVE); NITRITE,URINE NEGATIVE (NEGATIVE); OCCULT BLOOD,URINE NEGATIVE (NEGATIVE); PROTEIN,URINE TRACE mg/dL (NEGATIVE); UROBILINOGEN,URINE 0.2 (NORMAL) E.U./dL (NORMAL)
[2017-07-20 10:59] LABS: BILIRUBIN,URINE NEGATIVE (NEGATIVE); CLARITY,URINE CLEAR (CLEAR); ICTOTEST,URINE NEGATIVE
[2017-07-20 11:28] LABS: AMPHETAMINE SCREEN,URINE NEGATIVE (NEGATIVE); BENZODIAZEPINES SCREEN, URINE POSITIVE (NEGATIVE); COCAINE SCREEN URINE NEGATIVE (NEGATIVE); METHAMPHETAMINES SCREEN, URINE NEGATIVE (NEGATIVE); OPIATE SCREEN, URINE NEGATIVE (NEGATIVE); TRICYCLIC ANTIDEPRESSANT,URINE POSITIVE (NEGATIVE)
[2017-07-20 11:29] LABS: METHADONE SCREEN, URINE NEGATIVE (NEGATIVE); OXYCODONE SCREEN, URINE POSITIVE (NEGATIVE); PROPOXYPHENE SCREEN, URINE NEGATIVE (NEGATIVE)
== END 2017-07-20 12:00 | disposition home or self-care (01) ==
LOC: EDUNIT# → ED 09:57
DX: R40.0 Somnolence (principal); T43.015A Adverse effect of tricyclic antidepressants, initial encounter; R51 Headache; G47.00 Insomnia, unspecified; I11.0 Hypertensive heart disease with heart failure; I50.9 Heart failure, unspecified; Z79.82 Long term (current) use of aspirin; F17.200 Nicotine dependence, unspecified, uncomplicated
CPT/HCPCS: 36415; 51701; 80053; 80306; 81001; 81003; 83690; 85025; 87086; 99283

== ENCOUNTER 2017-08-01 12:55 | Outpatient (CLI) | payer MEDICARE, MEDICAID | END 2017-08-01 12:56 | disposition short-term general hospital (02) | LOC: EMS 12:55 | PROVIDERS: ATTEND Surgery | DX: R07.9 Chest pain, unspecified (principal); R42 Dizziness and giddiness; R44.3 Hallucinations, unspecified | CPT/HCPCS: A0425; A0427 ==

== ENCOUNTER 2017-08-12 08:53 | Emergency (ER) | payer MEDICARE, MEDICAID ==
--- NOTE | 2017-08-12 09:22 | ED Physician Documentation ---
PD HPI UPPER EXT INJURY - Stated complaint Stated Complaint: R MID FINGER LAC - Chief complaint Chief Complaint: Laceration - History obtained from History obtained from: Patient - History of Present Illness Location: Right, Finger (middle) Type of injury: Laceration (from blade of pocket knife) Timing - onset: Yesterday Timing - duration: Days (1 day and it starts to bleed at times, with the edges not staying together.) Timing - details: Abrupt onset Worsened by: Moving, Palpating (the small flap will open some and start to bleed again.) Associated symptoms: No: Weakness, Numbness Similar symptoms before: Has not had sx before Recently seen: Not recently seen Review of Systems Skin: reports: Laceration (s) Neurologic: denies: Focal weakness, Numbness PD PAST MEDICAL HISTORY - Past Medical History Past Medical History: Yes Cardiovascular: Congestive heart failure, Hypertension, High cholesterol Respiratory: Asthma, Shortness of breath Endocrine/Autoimmune: None GI: None, Crohn's disease, Other : None HEENT: None, Other Psych: Depression, Anxiety, Post traumatic stress disorder, Other Musculoskeletal: Osteoarthritis, Fibromyalgia, Fatigue, Chronic back pain Derm: Eczema - Past Surgical History Past Surgical History: Yes General: Appendectomy Cardiovascular: Other HEENT: Cataracts - Present Medications Home Medications: Ambulatory Orders Medication Instructions Recorded Confirmed Pregabalin [Lyrica] 300 mg PO BID 05/14/14 03/31/17 sulfaSALAzine [Sulfasalazine] 1,000 mg PO TID 06/10/14 03/31/17 Albuterol Sulfate [Proair Hfa 2 puffs INH Q6HR PRN 07/18/14 03/31/17 Inhaler] Meclizine HCl 25 mg PO Q6H PRN #30 tablet 01/06/15 03/31/17 Promethazine [Phenergan] 25 - 50 mg PO Q6H PRN #30 tab 01/06/15 03/31/17 Alprazolam [Xanax] 2 mg PO DAILY 10/19/16 03/31/17 Divalproex Sodium [Depakote] 500 mg PO BID 10/19/16 03/31/17 tiZANidine [Zanaflex] 8 mg PO TID PRN 10/19/16 03/31/17 Verapamil HCl [Verapamil ER] 120 mg PO DAILY 02/04/17 03/31/17 ALPRAZolam [Alprazolam] 4 mg PO QPM 02/10/17 03/31/17 Aspirin [Aspirin EC] 81 mg PO DAILY 02/10/17 03/31/17 Budesonide/Formoterol Fumarate 2 puffs INH BID 02/10/17 03/31/17 [Symbicort 160-4.5 Mcg Inhaler] Duloxetine HCl 60 mg PO BID 02/10/17 03/31/17 Ferrous Gluconate 324 mg PO DAILY 02/10/17 03/31/17 Milnacipran HCl [Savella] 50 mg PO BID 02/10/17 03/31/17 Nicotine [Nicotine Patch] 14 mg TOP DAILY 02/10/17 03/14/17 Nitroglycerin 1 spray SL Q5M PRN 02/10/17 03/31/17 Prazosin HCl 2 mg PO DAILY 02/10/17 03/31/17 Prazosin HCl 4 mg PO QPM 02/10/17 03/31/17 raNITIdine [Zantac] 150 mg PO BID 02/10/17 03/31/17 Fluticasone [Flonase] 1 sprays JUAN FRANCISCO DAILY #5 bottle 02/11/17 03/31/17 Metoprolol Succinate [Toprol Xl] 100 mg PO BID #60 tab.er.24h 02/11/17 03/31/17 Oxycodone HCl/Acetaminophen 1 each PO Q8HR PRN #10 tablet 05/21/17 [Percocet 10-325 mg Tablet] Levofloxacin [Levaquin] 500 mg PO DAILY #7 tablet 06/21/17 Erythromycin Base [Erythromycin] 1 applic OP Q4H #1 tub 07/11/17 - Allergies Allergies/Adverse Reactions: Allergies Allergy/AdvReac Type Severity Reaction Status Date / Time amitriptyline [Amitriptyline] Allergy Mild Anxiety Verified 06/21/17 05:37 codeine [Codeine] Allergy Mild Hives Verified 06/21/17 05:37 telmisartan [From Micardis] Allergy Mild Hives Verified 06/21/17 05:37 venom-honey bee Allergy Anaphylaxis Verified 06/21/17 05:37 [bee venom (honey bee)] lisinopril AdvReac Anxiety Verified 06/21/17 05:37 NSAIDS (Non-Steroidal AdvReac Emesis Verified 06/21/17 05:37 Anti-Inflamma tramadol HCl * [From Ultram] AdvReac Unknown Verified 06/21/17 05:37 Ghost peppers Allergy Anaphylaxis Uncoded 06/21/17 05:37 squash Allergy Anaphylaxis Uncoded 06/21/17 05:37 zuccinni Allergy Anaphylaxis Uncoded 06/21/17 05:37 - Social History Does the pt smoke?: Yes Smoking Status: Current every day smoker Does the pt drink ETOH?: No Does the pt have substance abuse?: No - Immunizations Immunizations are current?: Yes Immunizations: TDAP >10years/unknown, Other immun not current - POLST Patient has POLST: No PD ED PE NORMAL - Vitals Vital signs reviewed: Yes - General General: Alert and oriented X 3, No acute distress, Well developed/nourished - Derm Derm: Normal color, Warm and dry - Extremities Extremities: Other (right middle finger with 1 cm lac at edge of nailbed, small flap type. It is close right now without FB nor bleeding. Normal sensation at tip. Movement at IP joint is good. It is amenable to steri strips and dermabond. ) Results - Vitals Vitals: Vital Signs - 24 hr 08/12/17 10:12 Heart Rate 88 Respiratory 16 Rate Blood Pressure 148/76 H O2 Saturation 97 Oxygen O2 Source Room air PD MEDICAL DECISION MAKING - ED course Complexity details: considered differential (not open enough to need sutures. place steri strips and glue. ), d/w patient - Sepsis Event Vital Signs: Vital Signs - 24 hr 08/12/17 10:12 Heart Rate 88 Respiratory 16 Rate Blood Pressure 148/76 H O2 Saturation 97 Oxygen O2 Source Room air Departure - Departure Disposition: 01 Home, Self Care Clinical Impression: Finger laceration Qualifiers: Encounter type: initial encounter Finger: middle finger Damage to nail status: without damage Foreign body presence: without foreign body Laterality: right Qualified Code(s): S61.212A - Laceration without foreign body of right middle finger without damage to nail, initial encounter Condition: Stable Record reviewed to determine appropriate education?: Yes Instructions: ED Laceration Hand Follow-Up: WESTLEY TRIANA [Primary Care Provider] - Comments: Keep the finger clean and dry for the next several days and allow the Steri- Strips to fall off on their own. This should allow enough time for the laceration to adhere down and be able to be treated with simple Coban wrap after that. Recheck if signs of infection. Tylenol or ibuprofen if needed for pains. You did receive a tetanus booster today so are good for 10 years. Discharge Date/Time: 08/12/17 10:13
[2017-08-12] MEDS ORDERED: TETANUS/DIPHTHERIA/PERTUSSIS 0.5 ML SYRINGE IM ONE (09:37)
[2017-08-12 10:13] VITALS: BP 148/76
== END 2017-08-12 10:13 | disposition home or self-care (01) ==
LOC: ED 08:53
DX: S61.212A Laceration without foreign body of right middle finger without damage to nail, initial encounter (principal); W26.0XXA Contact with knife, initial encounter; Z23 Encounter for immunization; I11.0 Hypertensive heart disease with heart failure; I50.9 Heart failure, unspecified; E78.00 Pure hypercholesterolemia, unspecified; F17.200 Nicotine dependence, unspecified, uncomplicated
CPT/HCPCS: 90471; 99283

== ENCOUNTER 2017-08-13 10:05 | Emergency (ER) | payer MEDICARE, MEDICAID ==
--- NOTE | 2017-08-13 11:19 | ED Physician Documentation ---
PD HPI WOUND RECHECK - Stated complaint Stated Complaint: STRIPS COMING OFF LAC - Chief complaint Chief Complaint: Wound - Histroy obtained from History obtained from: Patient - History of Present Illness Location: Right Upper Extremity Timing - onset: Yesterday Associated symptoms: Other (steri strips comming off) Similar symptoms before: Has not had sx before Recently seen: Emergency Dept - Additional information Additional information: 46-year-old male was seen in the emergency department yesterday with a cut to his right index finger which was a superficial flap laceration and this was Steri-Stripped and glued. The patient wash the dishes and the bandages are now coming off. Review of Systems Constitutional: denies: Fever Respiratory: denies: Cough GI: denies: Vomiting Skin: reports: Laceration (s) Musculoskeletal: denies: Neck pain, Back pain Neurologic: denies: Generalized weakness, Focal weakness PD PAST MEDICAL HISTORY - Past Medical History Past Medical History: Yes Cardiovascular: Congestive heart failure, Hypertension, High cholesterol Respiratory: Asthma, Shortness of breath Endocrine/Autoimmune: None GI: None, Crohn's disease, Other : None HEENT: None, Other Psych: Depression, Anxiety, Post traumatic stress disorder, Other Musculoskeletal: Osteoarthritis, Fibromyalgia, Fatigue, Chronic back pain Derm: Eczema Other Past Medical History: insomnia, - Past Surgical History Past Surgical History: Yes General: Appendectomy Cardiovascular: Other HEENT: Cataracts - Present Medications Home Medications: Ambulatory Orders Medication Instructions Recorded Confirmed Pregabalin [Lyrica] 300 mg PO BID 05/14/14 03/31/17 sulfaSALAzine [Sulfasalazine] 1,000 mg PO TID 06/10/14 03/31/17 Albuterol Sulfate [Proair Hfa 2 puffs INH Q6HR PRN 07/18/14 03/31/17 Inhaler] Meclizine HCl 25 mg PO Q6H PRN #30 tablet 01/06/15 03/31/17 Promethazine [Phenergan] 25 - 50 mg PO Q6H PRN #30 tab 01/06/15 03/31/17 Alprazolam [Xanax] 2 mg PO DAILY 10/19/16 03/31/17 Divalproex Sodium [Depakote] 500 mg PO BID 10/19/16 03/31/17 tiZANidine [Zanaflex] 8 mg PO TID PRN 10/19/16 03/31/17 Verapamil HCl [Verapamil ER] 120 mg PO DAILY 02/04/17 03/31/17 ALPRAZolam [Alprazolam] 4 mg PO QPM 02/10/17 03/31/17 Aspirin [Aspirin EC] 81 mg PO DAILY 02/10/17 03/31/17 Budesonide/Formoterol Fumarate 2 puffs INH BID 02/10/17 03/31/17 [Symbicort 160-4.5 Mcg Inhaler] Duloxetine HCl 60 mg PO BID 02/10/17 03/31/17 Ferrous Gluconate 324 mg PO DAILY 02/10/17 03/31/17 Milnacipran HCl [Savella] 50 mg PO BID 02/10/17 03/31/17 Nicotine [Nicotine Patch] 14 mg TOP DAILY 02/10/17 03/14/17 Nitroglycerin 1 spray SL Q5M PRN 02/10/17 03/31/17 Prazosin HCl 2 mg PO DAILY 02/10/17 03/31/17 Prazosin HCl 4 mg PO QPM 02/10/17 03/31/17 raNITIdine [Zantac] 150 mg PO BID 02/10/17 03/31/17 Fluticasone [Flonase] 1 sprays JUAN FRANCISCO DAILY #5 bottle 02/11/17 03/31/17 Metoprolol Succinate [Toprol Xl] 100 mg PO BID #60 tab.er.24h 02/11/17 03/31/17 Oxycodone HCl/Acetaminophen 1 each PO Q8HR PRN #10 tablet 05/21/17 [Percocet 10-325 mg Tablet] Levofloxacin [Levaquin] 500 mg PO DAILY #7 tablet 06/21/17 Erythromycin Base [Erythromycin] 1 applic OP Q4H #1 tub 07/11/17 - Allergies Allergies/Adverse Reactions: Allergies Allergy/AdvReac Type Severity Reaction Status Date / Time amitriptyline [Amitriptyline] Allergy Mild Anxiety Verified 06/21/17 05:37 codeine [Codeine] Allergy Mild Hives Verified 06/21/17 05:37 telmisartan [From Micardis] Allergy Mild Hives Verified 06/21/17 05:37 venom-honey bee Allergy Anaphylaxis Verified 06/21/17 05:37 [bee venom (honey bee)] lisinopril AdvReac Anxiety Verified 06/21/17 05:37 NSAIDS (Non-Steroidal AdvReac Emesis Verified 06/21/17 05:37 Anti-Inflamma tramadol HCl * [From Ultram] AdvReac Unknown Verified 06/21/17 05:37 Ghost peppers Allergy Anaphylaxis Uncoded 06/21/17 05:37 squash Allergy Anaphylaxis Uncoded 06/21/17 05:37 zuccinni Allergy Anaphylaxis Uncoded 06/21/17 05:37 - Social History Does the pt smoke?: Yes Smoking Status: Current every day smoker Does the pt drink ETOH?: No Does the pt have substance abuse?: No - Immunizations Immunizations are current?: Yes Immunizations: TDAP >10years/unknown, Other immun not current - POLST Patient has POLST: No PD ED PE NORMAL - Vitals Vital signs reviewed: Yes (normal ) - General General: No acute distress, Well developed/nourished, Other (The patient appears to be about ready to fall asleep ) - HEENT HEENT: Atraumatic, PERRL, EOMI - Respiratory Respiratory: No respiratory distress - Derm Derm: Normal color, Warm and dry, No rash - Extremities Extremities: No deformity, No tenderness to palpate, No edema, Other (There is a superficial flap laceration to the right index finger. The wound appears to be wet. ) - Neuro Neuro: No motor deficit, No sensory deficit Eye Opening: Spontaneous Motor: Obeys Commands Verbal: Oriented GCS Score: 15 - Psych Psych: Normal mood, Normal affect Results - Vitals Vitals: Vital Signs - 24 hr 08/13/17 10:15 Temperature 36.9 C Heart Rate 87 Respiratory 18 Rate Blood Pressure 122/76 O2 Saturation 95 Oxygen O2 Source Room air Procedures - Laceration (location) right index Length in cm: 2 Wound type: Curved, Flap, Superficial, Clean Neurovascular status: Sensory intact, Motor intact, Vascular intact Tendon involvement: Tendon intact Skin layer closure: Dermabond Other: Patient tolerated well, No complications, Neurovascular intact, Dressing applied, Tetanus UTD Complexity: Simple PD MEDICAL DECISION MAKING - ED course Complexity details: considered differential, d/w patient ED course: 46-year-old male with a superficial flap laceration to his right index finger has had the wound, come apart after water duty. The wound does look wet and the dressings are removed and the wound is allowed to dry and it is subsequently re approximated with dermabond. He is instructed not to get this wound wet. - Sepsis Event Vital Signs: Vital Signs - 24 hr 08/13/17 10:15 Temperature 36.9 C Heart Rate 87 Respiratory 18 Rate Blood Pressure 122/76 O2 Saturation 95 Oxygen O2 Source Room air Departure - Departure Disposition: 01 Home, Self Care Clinical Impression: Finger laceration Qualifiers: Encounter type: subsequent encounter Finger: index finger Damage to nail status : without damage Foreign body presence: without foreign body Laterality: right Qualified Code(s): S61.210D - Laceration without foreign body of right index finger without damage to nail, subsequent encounter Condition: Stable Instructions: ED Laceration Hand Follow-Up: WESTLEY TRIANA [Primary Care Provider] - Comments: Avoid any water duty for the next week.
[2017-08-13 11:26] VITALS: BP 97/75
== END 2017-08-13 11:35 | disposition home or self-care (01) ==
LOC: ED 10:05
DX: S61.210D Laceration without foreign body of right index finger without damage to nail, subsequent encounter (principal); W45.8XXD Other foreign body or object entering through skin, subsequent encounter; I11.0 Hypertensive heart disease with heart failure; I50.9 Heart failure, unspecified; E78.00 Pure hypercholesterolemia, unspecified; F17.200 Nicotine dependence, unspecified, uncomplicated
CPT/HCPCS: 12001; 99282; 99283

== ENCOUNTER 2017-08-27 09:33 | Emergency (ER) | payer MEDICARE, MEDICAID ==
[2017-08-27] MEDS ORDERED: ALPRAZolam 0.25 MG TABLET PO STA (11:29)
--- NOTE | 2017-08-27 11:31 | ED Physician Documentation ---
History of Present Illness - Stated complaint Stated Complaint: PANICK ATTACK - Chief complaint Chief Complaint: General - History obtained from History obtained from: Patient - History of Present Illness Timing: Today - Additonal information Additional information: 46-year-old male with a history of benzodiazepine and narcotic prescription drug abuse has developed acute panic today when he has been sued by [employer] for account he did not realize he had opened. He states that he went through [employer] a month ago his [employer] sports lawyer is out of town until 03 September and he has become anxious over this. He states that he had a full-blown panic attack regarding this and found out that he was out of his Xanax. He is apparently 4 days short on his refill. Review of Systems Constitutional: denies: Fever Eyes: denies: Decreased vision Ears: denies: Ear pain Nose: denies: Congestion Throat: denies: Sore throat Cardiac: reports: Palpitations. denies: Chest pain / pressure Respiratory: denies: Dyspnea, Cough : denies: Dysuria, Frequency Skin: denies: Rash Musculoskeletal: denies: Neck pain, Back pain, Extremity pain Neurologic: denies: Generalized weakness, Focal weakness, Numbness, Difficulty speaking PD PAST MEDICAL HISTORY - Past Medical History Past Medical History: Yes Cardiovascular: Congestive heart failure, Hypertension, High cholesterol Respiratory: Asthma, Shortness of breath Endocrine/Autoimmune: None GI: None, Crohn's disease, Other : None HEENT: None, Other Psych: Depression, Anxiety, Post traumatic stress disorder, Other Musculoskeletal: Osteoarthritis, Fibromyalgia, Fatigue, Chronic back pain Derm: Eczema - Past Surgical History Past Surgical History: Yes General: Appendectomy Cardiovascular: Other HEENT: Cataracts - Present Medications Home Medications: Ambulatory Orders Medication Instructions Recorded Confirmed Pregabalin [Lyrica] 300 mg PO BID 05/14/14 03/31/17 Albuterol Sulfate [Proair Hfa 2 puffs INH Q6HR PRN 07/18/14 03/31/17 Inhaler] Meclizine HCl 25 mg PO Q6H PRN #30 tablet 01/06/15 03/31/17 Promethazine [Phenergan] 25 - 50 mg PO Q6H PRN #30 tab 01/06/15 03/31/17 Alprazolam [Xanax] 2 mg PO DAILY 10/19/16 03/31/17 Divalproex Sodium [Depakote] 500 mg PO BID 10/19/16 03/31/17 tiZANidine [Zanaflex] 8 mg PO TID PRN 10/19/16 03/31/17 Verapamil HCl [Verapamil ER] 160 mg PO DAILY 02/04/17 03/31/17 ALPRAZolam [Alprazolam] 4 mg PO QPM 02/10/17 03/31/17 Aspirin [Aspirin EC] 81 mg PO DAILY 02/10/17 03/31/17 Budesonide/Formoterol Fumarate 2 puffs INH BID 02/10/17 03/31/17 [Symbicort 160-4.5 Mcg Inhaler] Duloxetine HCl 60 mg PO BID 02/10/17 03/31/17 Milnacipran HCl [Savella] 50 mg PO BID 02/10/17 03/31/17 Nitroglycerin 1 spray SL Q5M PRN 02/10/17 03/31/17 Prazosin HCl 2 mg PO DAILY 02/10/17 03/31/17 Prazosin HCl 4 mg PO QPM 02/10/17 03/31/17 Fluticasone [Flonase] 1 sprays JUAN FRANCISCO DAILY #5 bottle 02/11/17 03/31/17 Metoprolol Succinate [Toprol Xl] 100 mg PO BID #60 tab.er.24h 02/11/17 03/31/17 Aripiprazole [Abilify] 08/27/17 Eszopiclone [Lunesta] 08/27/17 Mesalamine [Lialda] 08/27/17 Omeprazole [PriLOSEC] 08/27/17 - Allergies Allergies/Adverse Reactions: Allergies Allergy/AdvReac Type Severity Reaction Status Date / Time amitriptyline [Amitriptyline] Allergy Mild Anxiety Verified 08/27/17 10:08 codeine [Codeine] Allergy Mild Hives Verified 08/27/17 10:08 telmisartan [From Micardis] Allergy Mild Hives Verified 08/27/17 10:08 venom-honey bee Allergy Anaphylaxis Verified 08/27/17 10:08 [bee venom (honey bee)] lisinopril AdvReac Anxiety Verified 08/27/17 10:08 NSAIDS (Non-Steroidal AdvReac Emesis Verified 08/27/17 10:08 Anti-Inflamma tramadol HCl * [From Ultram] AdvReac Unknown Verified 08/27/17 10:08 Ghost peppers Allergy Anaphylaxis Uncoded 08/27/17 10:08 squash Allergy Anaphylaxis Uncoded 08/27/17 10:08 zuccinni Allergy Anaphylaxis Uncoded 08/27/17 10:08 - Social History Does the pt smoke?: Yes Smoking Status: Current every day smoker Does the pt drink ETOH?: No Does the pt have substance abuse?: No - Immunizations Immunizations are current?: Yes Immunizations: TDAP >10years/unknown, Other immun not current - POLST Patient has POLST: No PD ED PE NORMAL - Vitals Vital signs reviewed: Yes (tachy to 103) - General General: Alert and oriented X 3, Well developed/nourished, Other (The patient is anxious appearing. ) - HEENT HEENT: Atraumatic, PERRL, EOMI - Neck Neck: Supple, no meningeal sign, No bony TTP - Cardiac Cardiac: No murmur, Other (tachy to 100) - Respiratory Respiratory: No respiratory distress, Clear bilaterally - Abdomen Abdomen: Soft, Non tender - Back Back: No CVA TTP, No spinal TTP - Derm Derm: Normal color, Warm and dry, No rash - Extremities Extremities: No deformity, No edema - Neuro Neuro: Alert and oriented X 3, No motor deficit, No sensory deficit, Normal speech Eye Opening: Spontaneous Motor: Obeys Commands Verbal: Oriented GCS Score: 15 - Psych Psych: Normal affect, Other (mood is anxious) Results - Vitals Vitals: Vital Signs - 24 hr 08/27/17 08/27/17 09:53 11:47 Temperature 36.5 C 36.0 C L Heart Rate 103 H 94 Respiratory 20 18 Rate Blood Pressure 130/69 132/68 H O2 Saturation 103 H 94 Oxygen O2 Source Room air - EKG (time done) 1000 Rate: Rate (enter#) (107) Rhythm: Sinus tachycardia QRS: LVH Compare to prior EKG: Changed from prior EKG (SPT 06-21-[address] and T wave abnormalities have resolved. ) Computer interpretation: Agree with computer PD MEDICAL DECISION MAKING - ED course Complexity details: considered differential, d/w patient ED course: 46-year-old male with acute anxiety is out of his Xanax is given 1 mg of Xanax and no prescription. He is encouraged to contact his provider as he will likely need more of this before his fill date. - Sepsis Event Vital Signs: Vital Signs - 24 hr 08/27/17 08/27/17 09:53 11:47 Temperature 36.5 C 36.0 C L Heart Rate 103 H 94 Respiratory 20 18 Rate Blood Pressure 130/69 132/68 H O2 Saturation 103 H 94 Oxygen O2 Source Room air Departure - Departure Disposition: 01 Home, Self Care Clinical Impression: Anxiety attack Condition: Stable Instructions: ED Stress React, ED Panic Attack Follow-Up: WESTLEY TRIANA [Primary Care Provider] - Discharge Date/Time: 08/27/17 11:47
[2017-08-27 11:49] VITALS: BP 132/68
== END 2017-08-27 11:47 | disposition home or self-care (01) ==
LOC: ED 09:33
DX: F41.9 Anxiety disorder, unspecified (principal); R00.0 Tachycardia, unspecified; I11.0 Hypertensive heart disease with heart failure; I50.9 Heart failure, unspecified; E78.00 Pure hypercholesterolemia, unspecified; F17.200 Nicotine dependence, unspecified, uncomplicated
CPT/HCPCS: 93005; 99283; A9270

== ENCOUNTER 2017-09-08 04:21 | Emergency (ER) | payer MEDICARE, MEDICAID ==
[2017-09-08] MEDS ORDERED: IPRATROPIUM/ALBUTEROL 3 ML NEB INH STA (05:19)
[2017-09-08] MEDS ORDERED: DEXAMETHASONE 10 MG/ML VIAL PO STA (05:21)
--- NOTE | 2017-09-08 05:23 | ED Physician Documentation ---
PD HPI DYSPNEA - Stated complaint Stated Complaint: DIFFICULTY BREATHING - Chief complaint Chief Complaint: Resp - History obtained from History obtained from: Patient - History of Present Illness Timing - onset: Today Timing - onset during: Rest Timing - duration: Hours Timing - details: Abrupt onset, Still present Inciting event(s): URI Improved by: Inhaler/neb Worsened by: Allergens Associated symptoms: Wheezing Similar symptoms before: Diagnosis (bronchial pneumonia) Recently seen: Emergency Dept - Additional information Additional information: 46-year-old male with a history of asthma has been using his inhaler more frequently than usual and this morning when he went to use it he did not get adequate relief with it. He still has some shortness of breath. He denies any current illness just feels like his inhaler is not working. Review of Systems Constitutional: denies: Fever Eyes: denies: Decreased vision Ears: denies: Ear pain Nose: reports: Congestion Throat: denies: Sore throat Cardiac: denies: Chest pain / pressure, Palpitations Respiratory: reports: Dyspnea, Cough GI: denies: Nausea, Vomiting : denies: Dysuria Skin: denies: Rash Musculoskeletal: denies: Neck pain, Back pain, Extremity pain Neurologic: reports: Headache. denies: Generalized weakness, Focal weakness, Numbness, Head injury, LOC PD PAST MEDICAL HISTORY - Past Medical History Cardiovascular: Congestive heart failure, Hypertension, High cholesterol Respiratory: Asthma, Shortness of breath Endocrine/Autoimmune: None GI: None, Crohn's disease, Other : None HEENT: None, Other Psych: Depression, Anxiety, Post traumatic stress disorder, Other Musculoskeletal: Osteoarthritis, Fibromyalgia, Fatigue, Chronic back pain Derm: Eczema - Past Surgical History Past Surgical History: Yes General: Appendectomy Cardiovascular: Other HEENT: Cataracts - Present Medications Home Medications: Ambulatory Orders Medication Instructions Recorded Confirmed Pregabalin [Lyrica] 300 mg PO BID 05/14/14 03/31/17 Albuterol Sulfate [Proair Hfa 2 puffs INH Q6HR PRN 07/18/14 03/31/17 Inhaler] Meclizine HCl 25 mg PO Q6H PRN #30 tablet 01/06/15 03/31/17 Promethazine [Phenergan] 25 - 50 mg PO Q6H PRN #30 tab 01/06/15 03/31/17 Alprazolam [Xanax] 2 mg PO DAILY 10/19/16 03/31/17 Divalproex Sodium [Depakote] 500 mg PO BID 10/19/16 03/31/17 tiZANidine [Zanaflex] 8 mg PO TID PRN 10/19/16 03/31/17 Verapamil HCl [Verapamil ER] 160 mg PO DAILY 02/04/17 03/31/17 ALPRAZolam [Alprazolam] 4 mg PO QPM 02/10/17 03/31/17 Aspirin [Aspirin EC] 81 mg PO DAILY 02/10/17 03/31/17 Budesonide/Formoterol Fumarate 2 puffs INH BID 02/10/17 03/31/17 [Symbicort 160-4.5 Mcg Inhaler] Duloxetine HCl 60 mg PO BID 02/10/17 03/31/17 Milnacipran HCl [Savella] 50 mg PO BID 02/10/17 03/31/17 Nitroglycerin 1 spray SL Q5M PRN 02/10/17 03/31/17 Prazosin HCl 2 mg PO DAILY 02/10/17 03/31/17 Prazosin HCl 4 mg PO QPM 02/10/17 03/31/17 Fluticasone [Flonase] 1 sprays JUAN FRANCISCO DAILY #5 bottle 02/11/17 03/31/17 Metoprolol Succinate [Toprol Xl] 100 mg PO BID #60 tab.er.24h 02/11/17 03/31/17 Aripiprazole [Abilify] 08/27/17 Eszopiclone [Lunesta] 08/27/17 Mesalamine [Lialda] 08/27/17 Omeprazole [PriLOSEC] 08/27/17 Azithromycin [Zithromax] 250 mg PO DAILY #6 tablet 09/08/17 predniSONE [Deltasone] 10 mg PO DAILY #26 tablet 09/08/17 - Allergies Allergies/Adverse Reactions: Allergies Allergy/AdvReac Type Severity Reaction Status Date / Time amitriptyline [Amitriptyline] Allergy Mild Anxiety Verified 09/08/17 04:32 codeine [Codeine] Allergy Mild Hives Verified 09/08/17 04:32 telmisartan [From Micardis] Allergy Mild Hives Verified 09/08/17 04:32 venom-honey bee Allergy Anaphylaxis Verified 09/08/17 04:32 [bee venom (honey bee)] lisinopril AdvReac Anxiety Verified 09/08/17 04:32 NSAIDS (Non-Steroidal AdvReac Emesis Verified 09/08/17 04:32 Anti-Inflamma tramadol HCl * [From Ultram] AdvReac Unknown Verified 09/08/17 04:32 Ghost peppers Allergy Anaphylaxis Uncoded 08/27/17 10:08 squash Allergy Anaphylaxis Uncoded 08/27/17 10:08 zuccinni Allergy Anaphylaxis Uncoded 08/27/17 10:08 - Social History Does the pt smoke?: Yes Smoking Status: Current every day smoker Does the pt drink ETOH?: No Does the pt have substance abuse?: No - Immunizations Immunizations are current?: Yes Immunizations: TDAP >10years/unknown, Other immun not current - POLST Patient has POLST: No PD ED PE NORMAL - Vitals Vital signs reviewed: Yes (hypertensive ) - General General: Alert and oriented X 3, Well developed/nourished, Other (mild tachypnea at rest) - HEENT HEENT: Atraumatic, PERRL, EOMI, Other (The left TM has mild central erythema and flatening of the umbo. The right is markedly erythematous with loss of landmarks. ) - Neck Neck: Supple, no meningeal sign, No bony TTP - Cardiac Cardiac: RRR, No murmur - Respiratory Respiratory: No respiratory distress, Other (diminished breath sounds ) - Derm Derm: Normal color, Warm and dry, No rash - Extremities Extremities: No deformity, No edema - Neuro Neuro: Alert and oriented X 3, soft work wrapper examiner 2-12 intact, No motor deficit, No sensory deficit, Normal speech Eye Opening: Spontaneous Motor: Obeys Commands Verbal: Oriented GCS Score: 15 - Psych Psych: Normal mood, Normal affect Results - Vitals Vitals: Vital Signs - 24 hr 09/08/17 04:31 Temperature 36.4 C L Heart Rate 86 Respiratory 18 Rate Blood Pressure 164/94 H O2 Saturation 98 Oxygen O2 Source Room air PD MEDICAL DECISION MAKING - ED course Complexity details: reviewed old records, reviewed results, re-evaluated patient , considered differential, d/w patient ED course: 46-year-old male with history of asthma has otitis on exam is a bit of a headache as well he is administered dexamethasone 10 mg orally and a DuoNeb treatment will place on some azithromycin and we have given him some Toradol for his headache. - Sepsis Event Vital Signs: Vital Signs - 24 hr 09/08/17 04:31 Temperature 36.4 C L Heart Rate 86 Respiratory 18 Rate Blood Pressure 164/94 H O2 Saturation 98 Oxygen O2 Source Room air Departure - Departure Disposition: Home, Self Care Clinical Impression: Asthma Qualifiers: Asthma severity: mild Asthma persistence: intermittent Asthma complication type : with acute exacerbation Qualified Code(s): J45.21 - Mild intermittent asthma with (acute) exacerbation Otitis media Qualifiers: Otitis media type: suppurative Chronicity: acute Laterality: bilateral Recurrence: not specified as recurrent Spontaneous tympanic membrane rupture: without spontaneous rupture Qualified Code(s): H66.003 - Acute suppurative otitis media without spontaneous rupture of ear drum, bilateral Condition: Stable Instructions: ED Reactive Airway Disease, ED Otitis Media Acute Adult Follow-Up: WESTLEY TRIANA [Primary Care Provider] - Prescriptions: Azithromycin [Zithromax] 250 mg PO DAILY #6 tablet predniSONE [Deltasone] 10 mg PO DAILY #26 tablet
[2017-09-08] MEDS ORDERED: CHERRY SYRUP 10 ML UDC PO ONE (05:38)
[2017-09-08] MEDS ORDERED: KETOROLAC 60 MG/2 ML VIAL IM STA (05:41)
[2017-09-08 05:52] VITALS: BP 153/117
== END 2017-09-08 06:02 | disposition home or self-care (01) ==
LOC: ED 04:21
DX: J45.21 Mild intermittent asthma with (acute) exacerbation (principal); H66.003 Acute suppurative otitis media without spontaneous rupture of ear drum, bilateral; E78.00 Pure hypercholesterolemia, unspecified; F17.200 Nicotine dependence, unspecified, uncomplicated; I11.0 Hypertensive heart disease with heart failure; I50.9 Heart failure, unspecified; Z79.82 Long term (current) use of aspirin
CPT/HCPCS: 94640; 96372; 99283; A9270

== ENCOUNTER 2017-09-10 04:55 | Emergency (ER) | payer MEDICARE, MEDICAID ==
[2017-09-10] MEDS ORDERED: IPRATROPIUM/ALBUTEROL 3 ML NEB INH STA (05:19)
--- NOTE | 2017-09-10 05:24 | ED Physician Documentation ---
History of Present Illness - Stated complaint Stated Complaint: DIFFICULTY BREATHING - Chief complaint Chief Complaint: Resp - Additonal information Additional information: 46-year-old male presents the emergency department with complaints of wheezing. The patient has a history of asthma and reactive airway disease and recently was recently started on a course of Zithromax and prednisone. It was believed that a upper respiratory tract infection started the patient's symptoms. The patient returned to the emergency department With complaints of wheezing. The patient has not used his rescue inhaler this morning to help his symptoms. The patient reports ongoing pain in his right ear. No reports of respiratory distress difficulty breathing. No fevers, no chills or chest pain. Symptoms are described as mild. No other associated symptoms Review of Systems Constitutional: denies: Fever, Chills Eyes: denies: Discharge Ears: reports: Ear pain. denies: Loss of hearing, Drainage/discharge Nose: reports: Congestion Cardiac: denies: Chest pain / pressure, Palpitations Respiratory: reports: Cough, Wheezing. denies: Hemoptysis GI: denies: Abdominal Pain Skin: denies: Rash Musculoskeletal: denies: Neck pain PD PAST MEDICAL HISTORY - Past Medical History Past Medical History: Yes Cardiovascular: Congestive heart failure, Hypertension, High cholesterol, Arrhythmia, Valve disorder, Other Respiratory: Asthma, Shortness of breath, Sleep apnea, CPAP use Neuro: None Endocrine/Autoimmune: None GI: None, Crohn's disease, Other : None HEENT: None, Other Psych: Depression, Anxiety, Post traumatic stress disorder, Other Musculoskeletal: Osteoarthritis, Fibromyalgia, Fatigue, Chronic back pain Derm: Eczema - Past Surgical History Past Surgical History: Yes General: Appendectomy Cardiovascular: Other HEENT: Cataracts - Present Medications Home Medications: Ambulatory Orders Medication Instructions Recorded Confirmed Pregabalin [Lyrica] 300 mg PO BID 05/14/14 03/31/17 Albuterol Sulfate [Proair Hfa 2 puffs INH Q6HR PRN 07/18/14 03/31/17 Inhaler] Meclizine HCl 25 mg PO Q6H PRN #30 tablet 01/06/15 03/31/17 Promethazine [Phenergan] 25 - 50 mg PO Q6H PRN #30 tab 01/06/15 03/31/17 Alprazolam [Xanax] 2 mg PO DAILY 10/19/16 03/31/17 Divalproex Sodium [Depakote] 500 mg PO BID 10/19/16 03/31/17 tiZANidine [Zanaflex] 8 mg PO TID PRN 10/19/16 03/31/17 Verapamil HCl [Verapamil ER] 160 mg PO DAILY 02/04/17 03/31/17 Aspirin [Aspirin EC] 81 mg PO DAILY 02/10/17 03/31/17 Budesonide/Formoterol Fumarate 2 puffs INH BID 02/10/17 03/31/17 [Symbicort 160-4.5 Mcg Inhaler] Duloxetine HCl 60 mg PO BID 02/10/17 03/31/17 Milnacipran HCl [Savella] 50 mg PO BID 02/10/17 03/31/17 Nitroglycerin 1 spray SL Q5M PRN 02/10/17 03/31/17 Prazosin HCl 2 mg PO DAILY 02/10/17 03/31/17 Prazosin HCl 4 mg PO QPM 02/10/17 03/31/17 Fluticasone [Flonase] 1 sprays JUAN FRANCISCO DAILY #5 bottle 02/11/17 03/31/17 Metoprolol Succinate [Toprol Xl] 100 mg PO BID #60 tab.er.24h 02/11/17 03/31/17 Aripiprazole [Abilify] 08/27/17 Mesalamine [Lialda] 1 tab PO DAILY 08/27/17 Omeprazole [PriLOSEC] 08/27/17 Azithromycin [Zithromax] 250 mg PO DAILY #6 tablet 09/08/17 predniSONE [Deltasone] 10 mg PO DAILY #26 tablet 09/08/17 - Allergies Allergies/Adverse Reactions: Allergies Allergy/AdvReac Type Severity Reaction Status Date / Time amitriptyline [Amitriptyline] Allergy Mild Anxiety Verified 09/10/17 05:06 codeine [Codeine] Allergy Mild Hives Verified 09/10/17 05:06 telmisartan [From Micardis] Allergy Mild Hives Verified 09/10/17 05:06 venom-honey bee Allergy Anaphylaxis Verified 09/10/17 05:06 [bee venom (honey bee)] lisinopril AdvReac Anxiety Verified 09/10/17 05:06 NSAIDS (Non-Steroidal AdvReac Emesis Verified 09/10/17 05:06 Anti-Inflamma tramadol HCl * [From Ultram] AdvReac Unknown Verified 09/10/17 05:06 Ghost peppers Allergy Anaphylaxis Uncoded 09/10/17 05:06 squash Allergy Anaphylaxis Uncoded 09/10/17 05:06 zuccinni Allergy Anaphylaxis Uncoded 09/10/17 05:06 - Social History Does the pt smoke?: Yes Smoking Status: Current every day smoker Does the pt drink ETOH?: Yes Does the pt have substance abuse?: No - Immunizations Immunizations are current?: No Immunizations: TDAP >10years/unknown, Other immun not current - POLST Patient has POLST: No PD ED PE NORMAL - General General: Alert and oriented X 3, No acute distress - HEENT HEENT: Atraumatic, PERRL, EOMI, Ears normal - Neck Neck: Supple, no meningeal sign - Cardiac Cardiac: RRR - Respiratory Respiratory: No respiratory distress, Other (Scattered bilateral wheezing) - Derm Derm: Normal color - Extremities Extremities: No deformity, No edema - Neuro Neuro: Alert and oriented X 3, Normal speech - Psych Psych: Normal mood PD ED PE EXPANDED - HEENT HEENT: Other (The right ear is occluded with wax: The left ear canal is within normal limits and there is no evidence of acute otitis media) Results - Vitals Vitals: Vital Signs - 24 hr 09/10/17 09/10/17 05:01 05:30 Temperature 36 C L Heart Rate 86 80 Respiratory 22 16 Rate Blood Pressure 154/96 H O2 Saturation 95 Oxygen O2 Source Room air PD MEDICAL DECISION MAKING - ED course Complexity details: other (On reevaluation the patient is resting comfortably and feels much improved. The patient requested a dose of Toradol for his ear pain, the patient reports that he has has difficulty tolerating oral NSAIDs but has no difficulty taking Toradol. The patient appears appropriate for ongoing outpatient management. The patient's already on Zithromax and prednisone and currently his symptoms are still very mild and requires no change in these medications. I recommended follow-up with primary care. I discussed warning signs for decompensation and recommended returning to the emergency department for worsening or any concerns.) - Sepsis Event Vital Signs: Vital Signs - 24 hr 09/10/17 09/10/17 05:01 05:30 Temperature 36 C L Heart Rate 86 80 Respiratory 22 16 Rate Blood Pressure 154/96 H O2 Saturation 95 Oxygen O2 Source Room air Departure - Departure Disposition: Home, Self Care Clinical Impression: Mild asthma exacerbation, Excessive cerumen in right ear canal Condition: Good Instructions: Asthma Dc Follow-Up: WESTLEY TRIANA [Primary Care Provider] - Within 1 week Comments: Please return to the emergency department for worsening symptoms or any concerns
[2017-09-10] MEDS ORDERED: KETOROLAC 60 MG/2 ML VIAL IM STA (05:44)
[2017-09-10 06:10] VITALS: BP 145/68
== END 2017-09-10 06:06 | disposition home or self-care (01) ==
LOC: ED 04:55
DX: J45.901 Unspecified asthma with (acute) exacerbation (principal); F17.200 Nicotine dependence, unspecified, uncomplicated; H61.21 Impacted cerumen, right ear; I11.0 Hypertensive heart disease with heart failure; I50.9 Heart failure, unspecified; Z79.82 Long term (current) use of aspirin
CPT/HCPCS: 94640; 96372; 99283

== ENCOUNTER 2017-09-11 01:15 | Emergency (ER) | payer MEDICARE, MEDICAID ==
[2017-09-11] MEDS ORDERED: IPRATROPIUM/ALBUTEROL 3 ML NEB INH STA (01:47)
--- NOTE | 2017-09-11 01:48 | ED Physician Documentation ---
History of Present Illness - Stated complaint Stated Complaint: SOA - Chief complaint Chief Complaint: Resp - History obtained from History obtained from: Patient - History of Present Illness Timing: Prior to arrival - Additonal information Additional information: 46-year-old male with a history of asthma who is currently being treated for a upper respiratory tract infection presents to the emergency department with mild wheezing. The patient did not use his inhaler at home because he cannot find it. The patient's symptoms are described as mild. The patient denies any chest pain, dyspnea on exertion, diaphoresis or nausea. No attempts at symptom management. No new symptoms. No fevers or chills Review of Systems Constitutional: denies: Fever, Chills Eyes: denies: Discharge Ears: denies: Ear pain Nose: reports: Congestion Cardiac: denies: Chest pain / pressure Respiratory: reports: Cough, Wheezing. denies: Dyspnea GI: denies: Abdominal Pain Immunocompromised: denies: Chemotherapy PD PAST MEDICAL HISTORY - Past Medical History Past Medical History: Yes Cardiovascular: Congestive heart failure, Hypertension, High cholesterol Respiratory: Asthma, Shortness of breath, Sleep apnea, CPAP use Neuro: None Endocrine/Autoimmune: None GI: None, Crohn's disease, Other : None HEENT: None, Other Psych: Depression, Anxiety, Post traumatic stress disorder, Other Musculoskeletal: Osteoarthritis, Fibromyalgia, Fatigue, Chronic back pain Derm: Eczema - Past Surgical History Past Surgical History: Yes General: Appendectomy Cardiovascular: Other HEENT: Cataracts - Present Medications Home Medications: Ambulatory Orders Medication Instructions Recorded Confirmed Pregabalin [Lyrica] 300 mg PO BID 05/14/14 03/31/17 Albuterol Sulfate [Proair Hfa 2 puffs INH Q6HR PRN 07/18/14 03/31/17 Inhaler] Meclizine HCl 25 mg PO Q6H PRN #30 tablet 01/06/15 03/31/17 Promethazine [Phenergan] 25 - 50 mg PO Q6H PRN #30 tab 01/06/15 03/31/17 Alprazolam [Xanax] 2 mg PO DAILY 10/19/16 03/31/17 Divalproex Sodium [Depakote] 500 mg PO BID 10/19/16 03/31/17 tiZANidine [Zanaflex] 8 mg PO TID PRN 10/19/16 03/31/17 Verapamil HCl [Verapamil ER] 160 mg PO DAILY 02/04/17 03/31/17 Aspirin [Aspirin EC] 81 mg PO DAILY 02/10/17 03/31/17 Budesonide/Formoterol Fumarate 2 puffs INH BID 02/10/17 03/31/17 [Symbicort 160-4.5 Mcg Inhaler] Duloxetine HCl 60 mg PO BID 02/10/17 03/31/17 Milnacipran HCl [Savella] 50 mg PO BID 02/10/17 03/31/17 Nitroglycerin 1 spray SL Q5M PRN 02/10/17 03/31/17 Prazosin HCl 2 mg PO DAILY 02/10/17 03/31/17 Prazosin HCl 4 mg PO QPM 02/10/17 03/31/17 Fluticasone [Flonase] 1 sprays JUAN FRANCISCO DAILY #5 bottle 02/11/17 03/31/17 Metoprolol Succinate [Toprol Xl] 100 mg PO BID #60 tab.er.24h 02/11/17 03/31/17 Aripiprazole [Abilify] 08/27/17 Mesalamine [Lialda] 1 tab PO DAILY 08/27/17 Omeprazole [PriLOSEC] 08/27/17 Azithromycin [Zithromax] 250 mg PO DAILY #6 tablet 09/08/17 predniSONE [Deltasone] 10 mg PO DAILY #26 tablet 09/08/17 - Allergies Allergies/Adverse Reactions: Allergies Allergy/AdvReac Type Severity Reaction Status Date / Time amitriptyline [Amitriptyline] Allergy Mild Anxiety Verified 09/11/17 01:31 codeine [Codeine] Allergy Mild Hives Verified 09/11/17 01:31 telmisartan [From Micardis] Allergy Mild Hives Verified 09/11/17 01:31 venom-honey bee Allergy Anaphylaxis Verified 09/11/17 01:31 [bee venom (honey bee)] lisinopril AdvReac Anxiety Verified 09/11/17 01:31 NSAIDS (Non-Steroidal AdvReac Emesis Verified 09/11/17 01:31 Anti-Inflamma tramadol HCl * [From Ultram] AdvReac Unknown Verified 09/11/17 01:31 Ghost peppers Allergy Anaphylaxis Uncoded 09/10/17 05:06 squash Allergy Anaphylaxis Uncoded 09/10/17 05:06 [email or web address] Allergy Anaphylaxis Uncoded 09/10/17 05:06 - Social History Does the pt smoke?: Yes Smoking Status: Current every day smoker Does the pt drink ETOH?: No Does the pt have substance abuse?: No - Immunizations Immunizations are current?: Yes Immunizations: TDAP >10years/unknown, Other immun not current - POLST Patient has POLST: No PD ED PE NORMAL - General General: Alert and oriented X 3, No acute distress - HEENT HEENT: Atraumatic, PERRL, EOMI - Neck Neck: Supple, no meningeal sign - Cardiac Cardiac: RRR, Strong equal pulses - Respiratory Respiratory: No respiratory distress, Other (The patient has scattered wheezes on examination, good aeration and has no evidence of respiratory distress) - Abdomen Abdomen: Normal bowel sounds, Non tender, Non distended - Extremities Extremities: No deformity - Neuro Neuro: Alert and oriented X 3, Normal speech - Psych Psych: Normal mood Results - Vitals Vitals: Vital Signs - 24 hr 09/11/17 09/11/17 01:28 02:00 Temperature 36.3 C L Heart Rate 68 69 Respiratory 17 16 Rate Blood Pressure 144/73 H O2 Saturation 96 Oxygen O2 Source Room air PD MEDICAL DECISION MAKING - ED course ED course: The patient has had a mild asthma exacerbation, the patient did not use at home rescue inhaler. The patient was given 1 dose of albuterol in the emergency department and his symptoms have completely resolved. The patient appears appropriate for discharge home in ongoing outpatient management. I discussed warning signs for decompensation and recommended returning to the emergency department immediately for worsening or any concerns - Sepsis Event Vital Signs: Vital Signs - 24 hr 09/11/17 09/11/17 01:28 02:00 Temperature 36.3 C L Heart Rate 68 69 Respiratory 17 16 Rate Blood Pressure 144/73 H O2 Saturation 96 Oxygen O2 Source Room air Departure - Departure Disposition: 01 Home, Self Care Clinical Impression: Mild asthma exacerbation Condition: Good Instructions: Asthma Dc Follow-Up: WESTLEY TRIANA [Primary Care Provider] - Within 1 week Comments: Please return to the emergency department for worsening symptoms or any concerns
[2017-09-11 02:37] VITALS: BP 128/76
== END 2017-09-11 02:30 | disposition home or self-care (01) ==
LOC: ED 01:15
DX: J45.901 Unspecified asthma with (acute) exacerbation (principal); I11.0 Hypertensive heart disease with heart failure; I50.9 Heart failure, unspecified; E78.00 Pure hypercholesterolemia, unspecified; F17.200 Nicotine dependence, unspecified, uncomplicated; Z79.82 Long term (current) use of aspirin
CPT/HCPCS: 94640; 99283; 99284

== ENCOUNTER 2017-09-27 12:45 | Outpatient (CLI) | payer MEDICARE, MEDICAID | END 2017-09-27 12:46 | disposition critical access hospital (66) | LOC: EMS 12:45 | PROVIDERS: ATTEND Surgery | DX: R07.9 Chest pain, unspecified (principal) | CPT/HCPCS: A0425; A0427 ==

== ENCOUNTER 2017-09-27 13:06 | Observation (INO) | payer MEDICARE, MEDICAID ==
[2017-09-27] MEDS ORDERED: MORPHINE 2 MG/ML SYRINGE IVP STA ×2 (13:27→14:52)
--- NOTE | 2017-09-27 13:36 | ED Physician Documentation ---
PD HPI CHEST PAIN - Stated complaint Stated Complaint: CP - Chief complaint Chief Complaint: Cardiac - History obtained from History obtained from: Patient, EMS - History of Present Illness Timing - onset: Today (About 12:15 he developed sharp central nonradiating chest pain while at rest, watching TV. It has gone away a little bit after 15 minutes but is still there to some extent. He has mild nausea and shortness of breath with it. He also describes that he has had 2 heart attacks in the past but with negative angiography? But he has a stent... He also has LVH on prior echo. He received aspirin and nitroglycerin prior to arrival.) Review of Systems Ten Systems: 10 systems reviewed and negative Constitutional: denies: Fever, Chills Nose: denies: Rhinorrhea / runny nose, Congestion Cardiac: reports: Chest pain / pressure. denies: Palpitations, Pedal edema, Calf pain Respiratory: reports: Dyspnea. denies: Cough GI: reports: Nausea. denies: Abdominal Pain PD PAST MEDICAL HISTORY - Past Medical History Past Medical History: Yes Cardiovascular: Congestive heart failure, Hypertension, High cholesterol Respiratory: Asthma, Shortness of breath, Sleep apnea, CPAP use Neuro: None Endocrine/Autoimmune: None GI: None, Crohn's disease, Other : None HEENT: None, Other Psych: Depression, Anxiety, Post traumatic stress disorder, Other Musculoskeletal: Osteoarthritis, Fibromyalgia, Fatigue, Chronic back pain Derm: Eczema - Past Surgical History Past Surgical History: Yes General: Appendectomy Cardiovascular: Other HEENT: Cataracts - Present Medications Home Medications: Ambulatory Orders Medication Instructions Recorded Confirmed Albuterol Sulfate [Proair Hfa 2 puffs INH Q6HR PRN 07/18/14 09/27/17 Inhaler] Meclizine HCl 25 mg PO Q6H PRN #30 tablet 01/06/15 09/27/17 Divalproex Sodium [Depakote] 500 mg PO BID 10/19/16 09/27/17 Aspirin [Aspirin EC] 81 mg PO DAILY 02/10/17 09/27/17 Budesonide/Formoterol Fumarate 2 puffs INH BID 02/10/17 09/27/17 [Symbicort 160-4.5 Mcg Inhaler] Duloxetine HCl 60 mg PO BID 02/10/17 09/27/17 Milnacipran HCl [Savella] 50 mg PO DAILY 02/10/17 09/27/17 Nitroglycerin 1 spray SL Q5M PRN 02/10/17 09/27/17 Prazosin HCl 2 mg PO DAILY 02/10/17 09/27/17 Prazosin HCl 4 mg PO QPM 02/10/17 09/27/17 Fluticasone [Flonase] 1 sprays JUAN FRANCISCO DAILY #5 bottle 02/11/17 09/27/17 Metoprolol Succinate [Toprol Xl] 100 mg PO BID #60 tab.er.24h 02/11/17 09/27/17 Aripiprazole [Abilify] 10 mg PO DAILY 08/27/17 09/27/17 Mesalamine [Lialda] 4.8 g PO DAILY 08/27/17 09/27/17 Dicyclomine HCl [Dicyclomine HCl] 20 mg PO BID PRN 09/27/17 09/27/17 Milnacipran HCl [Savella] 100 mg PO QPM 09/27/17 09/27/17 Omeprazole [Omeprazole] 40 mg PO BIDAC 09/27/17 09/27/17 Oxycodone HCl/Acetaminophen 1 tab PO BID PRN 09/27/17 09/27/17 [Percocet 10-325 mg Tablet] Pregabalin [Lyrica] 300 mg PO BID 09/27/17 09/27/17 Promethazine [Phenergan] 25 mg PO Q6H PRN 09/27/17 09/27/17 Tizanidine HCl [Tizanidine HCl] 12 mg PO TID PRN 09/27/17 09/27/17 Verapamil ER [Calan SA] 180 mg PO DAILY 09/27/17 09/27/17 - Allergies Allergies/Adverse Reactions: Allergies Allergy/AdvReac Type Severity Reaction Status Date / Time squash Allergy Severe Anaphylaxis Verified 09/27/17 17:19 amitriptyline [Amitriptyline] Allergy Mild Anxiety Verified 09/27/17 13:10 codeine [Codeine] Allergy Mild Hives Verified 09/27/17 13:10 telmisartan [From Micardis] Allergy Mild Hives Verified 09/27/17 13:10 venom-honey bee Allergy Anaphylaxis Verified 09/27/17 13:10 [bee venom (honey bee)] lisinopril AdvReac Anxiety Verified 09/27/17 13:10 NSAIDS (Non-Steroidal AdvReac Emesis Verified 09/27/17 13:10 Anti-Inflamma tramadol HCl * [From Ultram] AdvReac Unknown Verified 09/27/17 13:10 Ghost peppers Allergy Anaphylaxis Uncoded 09/27/17 13:10 squash Allergy Anaphylaxis Uncoded 09/27/17 13:10 [email or web address] Allergy Anaphylaxis Uncoded 09/27/17 13:10 - Social History Does the pt smoke?: Yes Smoking Status: Current every day smoker Does the pt drink ETOH?: No Does the pt have substance abuse?: No - Family History Family history: reports: Non contributory - Immunizations Immunizations are current?: Yes Immunizations: TDAP >10years/unknown, Other immun not current - POLST Patient has POLST: No PD ED PE NORMAL - Vitals Vital signs reviewed: Yes - General General: Alert and oriented X 3, No acute distress - HEENT HEENT: PERRL, EOMI - Neck Neck: Supple, no meningeal sign, No bony TTP - Cardiac Cardiac: RRR, No murmur - Respiratory Respiratory: No respiratory distress, Clear bilaterally - Abdomen Abdomen: Other (Mild upper abdominal tenderness that does not lateralize.) - Back Back: No CVA TTP, No spinal TTP - Derm Derm: Normal color, Warm and dry - Extremities Extremities: No edema, No calf tenderness / cord - Neuro Neuro: Alert and oriented X 3, Normal speech - Psych Psych: Normal mood, Normal affect Results - Vitals Vitals: Vital Signs - 24 hr 09/27/17 09/27/17 09/27/17 13:06 15:06 15:35 Temperature 35.8 C L Heart Rate 84 74 71 Respiratory 16 20 16 Rate Blood Pressure 102/54 L 106/58 L 114/80 O2 Saturation 94 97 97 Oxygen O2 Source Room air - EKG (time done) 1310 Rate: Rate (enter#) (81) Rhythm: NSR [place]: Normal Intervals: Normal MS QRS: LVH Ischemia: Other (He has significant inverted T waves especially anteriorly and laterally. This is unchanged from prior EKGs in the chart.) Computer interpretation: Agree with computer - Labs Labs: Laboratory Tests 09/27/17 09/27/17 09/27/17 13:45 13:45 13:45 WBC 7.0 RBC 4.66 L Hgb 14.5 Hct 44.3 MCV 94.9 H MCH 31.0 MCHC 32.6 RDW 14.8 Plt Count 183 MPV 9.0 Neut # (Auto) 4.9 Lymph # (Auto) 1.5 Cavalier # (Auto) 0.5 Eos # (Auto) 0.0 Baso # (Auto) 0.1 Absolute Nucleated RBC 0.00 Nucleated RBC % 0.1 PT 11.5 INR 1.0 D-Dimer < 200.0 L Sodium 141 Potassium 4.4 Chloride 104 Carbon Dioxide 31 Anion Gap 6.0 BUN 21 H Creatinine 1.2 Estimated GFR (MDRD) 66 L Glucose 111 H Calcium 8.9 Total Bilirubin 0.7 AST 13 ALT 24 Alkaline Phosphatase 47 Troponin I Total Protein 6.4 L Albumin 3.4 Globulin 3.0 Albumin/Globulin Ratio 1.1 Lipase 30 09/27/17 13:45 WBC RBC Hgb Hct MCV MCH MCHC RDW Plt Count MPV Neut # (Auto) Lymph # (Auto) Cavalier # (Auto) Eos # (Auto) Baso # (Auto) Absolute Nucleated RBC Nucleated RBC % PT INR D-Dimer Sodium Potassium Chloride Carbon Dioxide Anion Gap BUN Creatinine Estimated GFR (MDRD) Glucose Calcium Total Bilirubin AST ALT Alkaline Phosphatase Troponin I < 0.04 Total Protein Albumin Globulin Albumin/Globulin Ratio Lipase - Rads (name of study) 1v chest Radiology: EMP read contemporaneously (Stent in the LAD, otherwise no apparent disease) PD MEDICAL DECISION MAKING - ED course ED course: 46-year-old gentleman with known coronary disease who had chest pain that only started about an hour prior to arrival. He has an abnormal EKG but it does not look significantly different than his usual. His pain improved but did not completely go away here. He received aspirin and nitroglycerin prior to arrival. He deserves a formal rule out given his history despite his young age and a call was placed to hospitalist at [phone]. - Sepsis Event Vital Signs: Vital Signs - 24 hr 09/27/17 09/27/17 09/27/17 13:06 15:06 15:35 Temperature 35.8 C L Heart Rate 84 74 71 Respiratory 16 20 16 Rate Blood Pressure 102/54 L 106/58 L 114/80 O2 Saturation 94 97 97 Oxygen O2 Source Room air Departure - Departure Disposition: ED Place in Observation Clinical Impression: Chest pain Condition: Stable Discharge Date/Time: 09/27/17 17:00
[2017-09-27 13:57] LABS: BASOPHILS # (AUTO) 0.1 10^3/uL (0.0-0.1); BASOPHILS % (AUTO) 1.1 %; EOSINOPHILS % (AUTO) 0.4 %; HGB - HEMOGLOBIN 14.5 g/dL (14.0-18.0); LYMPHOCYTES # (AUTO) 1.5 10^3/uL (1.5-3.5); LYMPHOCYTES % (AUTO) 21.3 %; MEAN CORPUSCULAR HGB CONC 32.6 g/dL (32.0-36.0); MEAN CORPUSCULAR VOLUME 94.9 fL (80.0-94.0); MONOCYTES # (AUTO) 0.5 10^3/uL (0.0-1.0); MONOCYTES % (AUTO) 7.3 %; NEUTROPHILS # (AUTO) 4.9 10^3/uL (1.5-6.6); NEUTROPHILS % (AUTO) 69.9 %; PLT - PLATELET COUNT 183 10^3/uL (130-450); RED BLOOD COUNT 4.66 10^6/uL (4.70-6.10); RED CELL DISTRIBUTION WIDTH 14.8 % (12.0-15.0)
[2017-09-27 14:04] LABS: PT - PROTHROMBIN TIME 11.5 secs (9.9-12.6)
--- NOTE | 2017-09-27 14:04 | XRAY Report ---
Procedure Date: 09/27/2017 Accession Number: [id number] / [id number] Procedure: XR - Chest 1 View X-Ray CPT Code: 30020 FULL RESULT: EXAM: CHEST RADIOGRAPHY EXAM DATE: 09/27/2017 01:41 PM. CLINICAL HISTORY: Chest pain. COMPARISON: CHEST 2 VIEW 06/21/2017. TECHNIQUE: 1 view. FINDINGS: Lungs/Pleura: No focal opacities evident. No pleural effusion. No pneumothorax. Interval resolution of the left upper lobe infiltrate. Mediastinum: Stable left coronary artery stent. Heart is normal caliber. No tracheal shift. Other: None. IMPRESSION: 1. Left coronary artery stent. 2. Otherwise, unremarkable exam. RADIA
[2017-09-27 14:12] LABS: D-DIMER < 200.0 ng/mL (200.0-255.0)
[2017-09-27 14:13] LABS: ALBUMIN 3.4 g/dL (3.2-5.5); ALBUMIN/GLOBULIN RATIO 1.1 (1.0-2.2); BILIRUBIN,TOTAL 0.7 mg/dL (0.2-1.0); CALCIUM 8.9 mg/dL (8.5-10.3); CREATININE 1.2 mg/dL (0.6-1.2); TOTAL PROTEIN 6.4 g/dL (6.7-8.2)
[2017-09-27] MEDS ORDERED: SODIUM CHLORIDE FLUSH 0.9% 10 ML SYRINGE IVP PRN (16:14)
[2017-09-27] MEDS ORDERED: PROCHLORPERAZINE 10 MG/2 ML VIAL IVP PRN (16:14)
[2017-09-27] MEDS ORDERED: ONDANSETRON 4 MG/2 ML VIAL IVP PRN (16:14)
[2017-09-27] MEDS ORDERED: ONDANSETRON ODT 4 MG TABLET TL PRN (16:14)
[2017-09-27] MEDS ORDERED: ACETAMINOPHEN 325 MG TABLET PO PRN (16:14)
[2017-09-27] MEDS ORDERED: NITROGLYCERIN SL 0.4 MG TABLET SL PRN (16:17)
[2017-09-27] MEDS ORDERED: MECLIZINE 12.5 MG TABLET PO PRN (16:18)
[2017-09-27] MEDS ORDERED: PROMETHAZINE 25 MG TABLET PO PRN (16:18)
[2017-09-27] MEDS ORDERED: DICYCLOMINE 10 MG CAPSULE PO PRN (16:18)
[2017-09-27] MEDS: SODIUM CHLORIDE FLUSH 0.9% 10 ML SYRINGE IVP SCH (18:28)
[2017-09-27] MEDS: oxyCODONE 5 MG TABLET PO PRN (18:28)
[2017-09-27] MEDS ORDERED: ALBUTEROL NEB 2.5 MG/3 ML INH PRN (18:37)
[2017-09-27] MEDS: DIVALPROEX DR 250 MG TABLET PO SCH (20:39)
[2017-09-27] MEDS: PREGABALIN 100 MG CAPSULE PO SCH (20:39)
[2017-09-27] MEDS: DULoxetine 30 MG CAPSULE PO SCH (20:39)
[2017-09-27] MEDS: METOPROLOL SUCCINATE 50 MG TABLET PO SCH (20:39)
[2017-09-27] MEDS: FORMOTEROL FUMARATE INH SCH (20:40)
[2017-09-27] MEDS: BUDESONIDE INH SCH (20:40)
[2017-09-27] MEDS: tiZANidine 4 MG TABLET PO PRN (20:44)
[2017-09-27] MEDS ORDERED: PRAZOSIN 1 MG CAPSULE PO SCH (21:00)
[2017-09-27] MEDS ORDERED: (Milnacipran Hcl [Savella] 50 MG) PO SCH (21:00)
--- NOTE | 2017-09-27 21:49 | HISTORY & PHYSICAL EXAMINATION ---
DATE OF SERVICE: 09/27/2017 Physician: Freda Phoenix MD ATTENDING PROVIDER: Lakshmi Talavera PA-C ADMITTING PROVIDER: Freda Phoenix M.D. CHIEF COMPLAINT: Sharp stabbing chest pain. HISTORY OF PRESENT ILLNESS: This is a 46-year-old, very morbidly obese white male who lives a relatively sedentary lifestyle. He has hypertrophic cardiomyopathy and a pacer in place. An echocardiogram done October 2016 confirmed the hypertrophic cardiomyopathy and a followup echo February 2017 showed worsening cardiomyopathy. His left ventricular systolic function is hyperdynamic with an ejection fraction of 70% to 75%. No significant valvular heart disease. That echo did not have pacers in place. Patient also states he has a stent. Unable to verify that history at this time. He presented to the emergency room because of sudden onset of sharp, stabbing, intermittent chest pain while he was watching TV today. It is associated with a little bit of nausea and a little bit of sweats, but nonradiating. Prior to this, he has not been having any change in his status. There is no new orthopnea. No new edema. Both of those are chronic and unchanged. He received nitroglycerin in the emergency room and chest pain got almost completely relieved. EKG shows the changes of his hypertrophic heart status. He is now placed in observation for rule out HI. PAST MEDICAL HISTORY 1. Hypertension. 2. Hyperlipidemia. 3. Obstructive sleep apnea, on CPAP. 4. Asthma, on long-acting bronchodilators. 5. Headaches and migraines. 6. Depression with anxiety as well as PTSD. 7. Osteoarthritis. 8. Fibromyalgia and chronic fatigue. 9. Chronic back pain. 10. Eczema. 11. Benzodiazepine and opioid abuse with multiple visits to the emergency room with altered mental status. In February, he required an admission because of accidental overdose and sedation. 12. Possible cataplexy. MEDICATIONS 1. ProAir inhaler 2 puffs every 6 hours. 2. Abilify 10 mg daily. 3. Aspirin 81 mg daily. 4. Long-acting bronchodilator with budesonide/formoterol 2 puffs b.i.d. 5. Dicyclomine 20 mg p.o. b.i.d. 6. Depakote 500 mg p.o. b.i.d. 7. Duloxetine 60 mg p.o. b.i.d. 8. Flonase nasal spray 1 spray each nostril daily. 9. Meclizine 25 mg every 6 hours as needed. 10. Lialda 4.8 mg daily. 11. Toprol-XL 100 mg p.o. b.i.d. 12. Savella 50 mg p.o. daily in the morning and 100 mg at night. 13. Sublingual nitroglycerin spray p.r.n. 14. Omeprazole 40 mg p.o. b.i.d. 15. Oxycodone 10/325 one tablet b.i.d. 16. Prazosin 4 mg in the evening and 2 mg in the morning. 17. Lyrica 300 mg b.i.d. 18. Phenergan 25 mg every 6 hours as needed for nausea. 19. Tizanidine 12 mg p.o. t.i.d. p.r.n. 20. Verapamil sustained release 180 mg p.o. daily. ALLERGIES 1. AMITRIPTYLINE. 2. CODEINE. 3. MICARDIS. 4. BEE HONEY. 5. LISINOPRIL. 6. NONSTEROIDAL ANTI-INFLAMMATORIES. 7. TRAMADOL. 8. GHOST PEPPER. 9. SQUASH. 10. ZUCCHINI. SOCIAL HISTORY: He denies smoking, has no history of alcohol abuse. Denies recreational substance abuse in the form of pot, cocaine, heroin, LSD, or speed. REVIEW OF SYSTEMS CONSTITUTIONAL: He is always tired, always has no energy, but denies any recent weight changes, night sweats or change in appetite. ENT: Denies any new vision changes, blurred vision or double vision. He has no problems with swallowing, sore throat. Denies any problems with his ears. CARDIOVASCULAR: As above. PULMONARY: Denies coughing and wheezes only when he does not get his medication. He does not remember ever being intubated for his asthma. Denies being on oral steroids. GASTROINTESTINAL: Always has easy nausea, bloating. He has Crohn's disease and takes mesalamine. Denies any bloody stool. GENITOURINARY: Denies urgency, frequency, dysuria, flank pain, or hematuria. MUSCULOSKELETAL: Joints always hurt, always hurts all over. Back always hurts. Muscles always hurt. Nothing is new. No new rashes with this. SKIN: Denies any rashes, bumps, lesions. NEUROLOGIC: Sedentary. He does not do very much because of his weight and generalized pain. Denies any seizures, syncope. Memory loss. PSYCHIATRIC: Denies any suicidal ideation. Always has depression and anxiety. ENDOCRINE: Denies polyuria, polydipsia, polyphagia. PHYSICAL EXAMINATION VITAL SIGNS: He is a 5 feet 8 inches white male, 149 kilograms. GENERAL: He is lying comfortably in the bed with the remote watching TV. HEAD AND NECK: Unremarkable. Pupils equal, round, and reactive. Oral mucosa is pink and moist. Neck is obese, too difficult to assess for JVD but there is no goiter, no bruits, no stiffness. LUNGS: Coarse upper airway sounds, almost snoring in his ability to breathe, but no crackles, rhonchi, wheezing and no increased respiratory effort. CARDIAC: PMI not able to be palpated. Distant cardiac tones with hyperdynamic sounds and a regular rate and rhythm. Systolic ejection murmur present. ABDOMEN: Hugely obese, soft, very difficult to assess for organomegaly. Hypoactive bowel sounds. Some generalized achiness with deep palpation, but no real tenderness. EXTREMITIES: Large, edematous, 1+ edema. He says this is chronic. NEUROLOGIC: He is alert and oriented to person, place, and time. He gives a lucid history. No focal deficits, but he struggles to try and transfer to a sitting position for me. LABORATORY DATA: Sodium 141, potassium 4.4, BUN 21, creatinine 1.2, random glucose 111. Liver enzymes normal. Troponin less than 0.04. White cell count 7, hemoglobin 14.5, hematocrit 44.3, platelets 183. ASSESSMENT AND PLAN 1. Atypical chest pain in a morbidly obese white male who has hypertrophic cardiomyopathy and does have cardiac risk factors. He states that he usually sees Dr. Izaguirre or Dr. Aleman. He has never had a stress test, but he has had an angiogram. PLAN 1. Placed in observation. 2. Attention: The patient will be admitted less than 96 hours. 3. Serial cardiac enzymes x2 sets. 4. Plan for outpatient nuclear medicine stress test. He is unable to do a Michele protocol. 2. Hypertension. Continue same medications. At this time, patient appears stable and at goal. 3. Asthma. Currently no exacerbation. We do not have long-acting bronchodilators via metered dose inhalers. He thinks he can miss 1 dose tonight. We will use albuterol p.r.n. while he is here. 4. Chronic pain syndrome from his fibromyalgia, chronic back pain, and we will give him his usual medications. Avoid escalating any change in narcotics. 5. FULL CODE STATUS. 6. Deep venous thrombosis prophylaxis with Lovenox. TD: 09/27/2017 19:47 [email or web address]
[2017-09-28] MEDS: SODIUM CHLORIDE FLUSH 0.9% 10 ML SYRINGE IVP SCH (00:07)
[2017-09-28 03:25] LABS: CALCIUM 8.8 mg/dL (8.5-10.3)
[2017-09-28] MEDS: DIVALPROEX DR 250 MG TABLET PO SCH (08:27)
[2017-09-28] MEDS: PREGABALIN 100 MG CAPSULE PO SCH (08:27)
[2017-09-28] MEDS: METOPROLOL SUCCINATE 50 MG TABLET PO SCH (08:27)
[2017-09-28] MEDS: oxyCODONE 5 MG TABLET PO PRN (08:28)
[2017-09-28] MEDS: DULoxetine 30 MG CAPSULE PO SCH (08:28)
[2017-09-28] MEDS: tiZANidine 4 MG TABLET PO PRN (08:28)
[2017-09-28] MEDS: BUDESONIDE INH SCH (08:29)
[2017-09-28] MEDS: FORMOTEROL FUMARATE INH SCH (08:29)
[2017-09-28] MEDS ORDERED: ASPIRIN EC 81 MG TABLET PO SCH (09:00)
[2017-09-28] MEDS ORDERED: ARIPiprazole 5 MG TABLET PO SCH (09:00)
[2017-09-28] MEDS ORDERED: POLYETHYLENE GLYCOL 3350 17 GM PACKET PO SCH (09:00)
[2017-09-28] MEDS ORDERED: (Milnacipran Hcl [Savella] 50 MG) PO SCH (09:00)
[2017-09-28] MEDS ORDERED: PATIENT OWN MED PO SCH (09:00)
[2017-09-28] MEDS ORDERED: VERAPAMIL ER 180 MG TABLET PO SCH (09:00)
[2017-09-28] MEDS ORDERED: PRAZOSIN 1 MG CAPSULE PO SCH (09:00)
[2017-09-28] MEDS ORDERED: FLUTICASONE NAS SCH (09:00)
--- NOTE | 2017-09-28 09:20 | Discharge Plan ---
Discharge Plan Disposition: 01 Home, Self Care Condition: Stable Diet: Cardiac Activity Restrictions: Activity as Tolerated Shower Restrictions: No Driving Restrictions: No No Smoking: If you smoke, Please STOP! Call for help. Follow-up with: Provider,Other [Primary Care Provider] - Lakshmi Talavera PA-C [Physician No Access] -
[2017-09-28 10:58] VITALS: BP 147/83
--- NOTE | 2017-10-05 18:42 | DISCHARGE SUMMARY ---
Physician: Freda Phoenix MD DATE OF ADMISSION: 09/27/2017 DATE OF DISCHARGE: 09/28/2017 PRIMARY CARE PROVIDER: Lakshmi Talavera PA-C DISCHARGE DIAGNOSES 1. Atypical chest pain. 2. Morbid obesity. 3. Hypertrophic cardiomyopathy. 4. Hypertension. 5. Asthma. 6. Chronic pain syndrome. DISCHARGE MEDICATIONS: Unchanged. 1. Albuterol ProAir inhaler HFA 2 puffs as needed every 6 hours. 2. Abilify 10 mg daily. 3. Aspirin 81 daily. 4. Budesonide with formoterol inhaler 2 puffs b.i.d. 5. Dicyclomine 20 b.i.d. 6. Depakote 500 p.o. b.i.d. 7. Duloxetine 60 mg b.i.d. 8. Flonase 1 spray in each nostril daily. 9. Meclizine 25 every 6 hours p.r.n. 10. Mesalamine 4.8 g daily. 11. Toprol-XL 100 mg b.i.d. 12. Savella 50 mg daily in the morning and 100 mg in the evening. 13. Sublingual nitroglycerin. 14. Omeprazole 40 b.i.d. 15. Oxycodone with acetaminophen b.i.d. p.r.n. 16. Prazosin 4 mg in the evening, 2 mg in the morning. 17. Lyrica 300 mg b.i.d. 18. Phenergan 25 mg every 6 hours as needed for nausea. 19. Tizanidine 12 mg p.o. t.i.d. 20. Verapamil sustained release 100 mg p.o. daily. PRINCIPAL PROCEDURES: Serial cardiac enzymes negative. HISTORY: The patient is a 46-year-old morbidly obese white male who has hypertrophic cardiomyopathy. He has had several evaluations for chest pain in the past. However, he states that he has never east d a coronary angiogram. He presented with chest pain. Please refer to the detailed history and phys ical. HOSPITAL COURSE: Serial cardiac enzymes were done and were negative. EKG remained unchanged. Telem etry showed no overnight arrhythmias. He is a morbidly obese male and is unable to do a regular Bruc e protocol with aggressive stress testing and will need Cardiolite stress testing with nuclear medici ne imaging. Unfortunately, nuclear medicine is not available at this facility at this moment in time . The patient is strongly encouraged to follow up with his manpower development specialist manager and primary care provider an d get scheduled for stress testing at the discretion of the manpower development specialist manager. No medication changes made in this patient who has high risk for coronary artery disease. He is cont inued on his aspirin, statin, blood pressure control drugs. cc: Lakshmi Talavera PA-C TD: 10/05/2017 10:20
== END 2017-09-28 11:24 | disposition home or self-care (01) ==
LOC: EDUNIT# → ED 13:06 → MS3 16:14
PROVIDERS: ADMIT Specialist; ATTEND Specialist
DX: R07.89 Other chest pain (principal); E66.01 Morbid (severe) obesity due to excess calories; I42.2 Other hypertrophic cardiomyopathy; I11.9 Hypertensive heart disease without heart failure; J45.909 Unspecified asthma, uncomplicated; G89.4 Chronic pain syndrome; E78.5 Hyperlipidemia, unspecified; G47.33 Obstructive sleep apnea (adult) (pediatric); F17.200 Nicotine dependence, unspecified, uncomplicated; G43.909 Migraine, unspecified, not intractable, without status migrainosus; F41.8 Other specified anxiety disorders; F43.10 Post-traumatic stress disorder, unspecified; M54.9 Dorsalgia, unspecified; M79.7 Fibromyalgia; F11.10 Opioid abuse, uncomplicated; K50.90 Crohn's disease, unspecified, without complications; I25.2 Old myocardial infarction; Z95.5 Presence of coronary angioplasty implant and graft; Z68.42 Body mass index [BMI] 45.0-49.9, adult; Z79.82 Long term (current) use of aspirin; Z79.899 Other long term (current) drug therapy; Z95.0 Presence of cardiac pacemaker; Z79.1 Long term (current) use of non-steroidal anti-inflammatories (NSAID)
CPT/HCPCS: 36415; 71045; 80048; 80053; 83690; 84484; 85025; 85379; 85610; 93005; 96374; 96376; 99284; 99285

== ENCOUNTER 2017-11-12 20:41 | Emergency (ER) | payer MEDICAID, MEDICARE ==
[2017-11-12 20:53] VITALS: BP 124/85
== END 2017-11-12 22:00 | disposition left against medical advice (07) ==
LOC: ED 20:41
DX: R51 Headache (principal); H53.149 Visual discomfort, unspecified; R11.0 Nausea; Z53.21 Procedure and treatment not carried out due to patient leaving prior to being seen by health care provider

== ENCOUNTER 2017-11-23 08:14 | Emergency (ER) | payer MEDICARE, MEDICAID ==
--- NOTE | 2017-11-23 08:24 | ED Physician Documentation ---
History of Present Illness - Stated complaint Stated Complaint: R SHOULDER PX - Additonal information Additional information: hx from pt EMR and DORCAS per EMR Pmhx: opiate abuse, benzo abuse, obersity, migraines, sleep apnea, HTN CHF, allergic to tramadol NSAIDS codeine and amitrypyiline among others to ED today for shoulder pain states he fell down several stairs and hurt right shoulder no other sig injury no other new illness already seen at [facility] for same with neg xrays and by PMD for same and dx rotator cuff injury to ED today for toadol shot (states cannot take PO NSAIDS but toradol OK) and a sling no other concerns Review of Systems Musculoskeletal: reports: Joint pain (R shoulder after fall) PD PAST MEDICAL HISTORY - Past Medical History Cardiovascular: Congestive heart failure, Hypertension, High cholesterol Respiratory: Asthma, Shortness of breath, Sleep apnea, CPAP use Neuro: None Endocrine/Autoimmune: None GI: None, Crohn's disease, Other : None HEENT: None, Other Psych: Depression, Anxiety, Post traumatic stress disorder, Other Musculoskeletal: Osteoarthritis, Fibromyalgia, Fatigue, Chronic back pain Derm: Eczema - Past Surgical History Past Surgical History: Yes General: Appendectomy Cardiovascular: Other HEENT: Cataracts - Present Medications Home Medications: Ambulatory Orders Medication Instructions Recorded Confirmed Albuterol Sulfate [Proair Hfa 2 puffs INH Q6HR PRN 07/18/14 09/27/17 Inhaler] Meclizine HCl 25 mg PO Q6H PRN #30 tablet 01/06/15 09/27/17 Divalproex Sodium [Depakote] 500 mg PO BID 10/19/16 09/27/17 Aspirin [Aspirin EC] 81 mg PO DAILY 02/10/17 09/27/17 Budesonide/Formoterol Fumarate 2 puffs INH BID 02/10/17 09/27/17 [Symbicort 160-4.5 Mcg Inhaler] Duloxetine HCl 60 mg PO BID 02/10/17 09/27/17 Milnacipran HCl [Savella] 50 mg PO DAILY 02/10/17 09/27/17 Nitroglycerin 1 spray SL Q5M PRN 02/10/17 09/27/17 Prazosin HCl 2 mg PO DAILY 02/10/17 09/27/17 Prazosin HCl 4 mg PO QPM 02/10/17 09/27/17 Fluticasone [Flonase] 1 sprays JUAN FRANCISCO DAILY #5 bottle 02/11/17 09/27/17 Metoprolol Succinate [Toprol Xl] 100 mg PO BID #60 tab.er.24h 02/11/17 09/27/17 Aripiprazole [Abilify] 10 mg PO DAILY 08/27/17 09/27/17 Mesalamine [Lialda] 4.8 g PO DAILY 08/27/17 09/27/17 Dicyclomine HCl 20 mg PO BID PRN 09/27/17 09/27/17 Milnacipran HCl [Savella] 100 mg PO QPM 09/27/17 09/27/17 Omeprazole 40 mg PO BIDAC 09/27/17 09/27/17 Oxycodone HCl/Acetaminophen 1 tab PO BID PRN 09/27/17 09/27/17 [Percocet 10-325 mg Tablet] Pregabalin [Lyrica] 300 mg PO BID 09/27/17 09/27/17 Promethazine [Phenergan] 25 mg PO Q6H PRN 09/27/17 09/27/17 Tizanidine HCl 12 mg PO TID PRN 09/27/17 09/27/17 Verapamil ER [Calan SA] 180 mg PO DAILY 09/27/17 09/27/17 - Allergies Allergies/Adverse Reactions: Allergies Allergy/AdvReac Type Severity Reaction Status Date / Time squash Allergy Severe Anaphylaxis Verified 11/12/17 20:53 amitriptyline [Amitriptyline] Allergy Mild Anxiety Verified 11/12/17 20:53 codeine [Codeine] Allergy Mild Hives Verified 11/12/17 20:53 telmisartan [From Micardis] Allergy Mild Hives Verified 11/12/17 20:53 venom-honey bee Allergy Anaphylaxis Verified 11/12/17 20:53 [bee venom (honey bee)] lisinopril AdvReac Anxiety Verified 11/12/17 20:53 NSAIDS (Non-Steroidal AdvReac Emesis Verified 11/12/17 20:53 Anti-Inflamma tramadol HCl * [From Ultram] AdvReac Unknown Verified 11/12/17 20:53 Ghost peppers Allergy Anaphylaxis Uncoded 09/27/17 13:10 squash Allergy Anaphylaxis Uncoded 09/27/17 13:10 [email or web address] Allergy Anaphylaxis Uncoded 09/27/17 13:10 - Social History Does the pt smoke?: Yes Smoking Status: Current every day smoker Does the pt drink ETOH?: No Does the pt have substance abuse?: No - Immunizations Immunizations are current?: Yes Immunizations: TDAP >10years/unknown, Other immun not current - POLST Patient has POLST: No PD ED PE NORMAL - Vitals Vital signs reviewed: Yes - HEENT HEENT: Atraumatic - Cardiac Cardiac: RRR - Respiratory Respiratory: No respiratory distress, Clear bilaterally - Extremities Extremities: Other (no defmority, limited ROM 2/2 pain, MSV intact) Results - Vitals Vitals: Vital Signs - 24 hr 11/23/17 08:25 Temperature 36.9 C Heart Rate 72 Respiratory 18 Rate Blood Pressure 155/75 H O2 Saturation 97 Oxygen O2 Source Room air PD MEDICAL DECISION MAKING - Sepsis Event Vital Signs: Vital Signs - 24 hr 11/23/17 08:25 Temperature 36.9 C Heart Rate 72 Respiratory 18 Rate Blood Pressure 155/75 H O2 Saturation 97 Oxygen O2 Source Room air Departure - Departure Disposition: 01 Home, Self Care Clinical Impression: Sprain of shoulder, right Qualifiers: Encounter type: subsequent encounter Shoulder sprain type: unspecified sprain Qualified Code(s): S43.401D - Unspecified sprain of right shoulder joint, subsequent encounter Condition: Good Instructions: ED Sprain Shoulder, ED Sling Follow-Up: WESTLEY TRIANA [Primary Care Provider] - Comments: As we discussed, it is important you do some range of motion with your shoulder every day to prevent scar tissue and "freezing"
[2017-11-23] MEDS ORDERED: KETOROLAC 60 MG/2 ML VIAL IM STA (08:47)
[2017-11-23 09:17] VITALS: BP 123/80
== END 2017-11-23 09:21 | disposition home or self-care (01) ==
LOC: ED 08:14
DX: S43.491A Other sprain of right shoulder joint, initial encounter (principal); W10.9XXA Fall (on) (from) unspecified stairs and steps, initial encounter; E78.00 Pure hypercholesterolemia, unspecified; I11.0 Hypertensive heart disease with heart failure; I50.9 Heart failure, unspecified; Z79.82 Long term (current) use of aspirin; F17.200 Nicotine dependence, unspecified, uncomplicated
CPT/HCPCS: 96372; 99283

== ENCOUNTER 2017-12-28 09:45 | Emergency (ER) | payer MEDICARE, MEDICAID ==
[2017-12-28 09:59] VITALS: BP 132/94
[2017-12-28] MEDS ORDERED: DEXAMETHASONE 10 MG/ML VIAL PO STA (11:36)
[2017-12-28] MEDS ORDERED: KETOROLAC 60 MG/2 ML VIAL IM STA (11:36)
--- NOTE | 2017-12-28 12:30 | ED Physician Documentation ---
PD HPI BACK PAIN - Stated complaint Stated Complaint: BACK PX - Chief complaint Chief Complaint: Back Pain - History obtained from History obtained from: Patient - History of Present Illness Timing - onset: How many days ago (4) Timing - duration: Days (4) Timing - details: Still present Location: Lower, Left Quality: Pain Worsened by: Movement Similar symptoms before: Diagnosis (He has a history of chronic back pain.) Recently seen: Emergency Dept (He was seen in the emergency department at [facility] last night for headache, and received treatment with Toradol and Decadron, which he states helped not only his headache but also his back pain.) - Additional information Additional information: The patient is a 47-year-old obese male who presents with left lower back pain that has been waxing and waning for the past 4 days. He denies any specific injury. He denies fever, urinary incontinence, numbness or weakness. He has a history of chronic low back pain, stating that he has previously been diagnosed with intervertebral disc disease. He has received steroid injections for his back pain, most recently about 4 months ago. Review of Systems Constitutional: denies: Fever Nose: denies: Congestion Throat: denies: Sore throat Cardiac: denies: Chest pain / pressure Respiratory: denies: Dyspnea, Cough GI: denies: Abdominal Pain, Nausea, Vomiting : denies: Dysuria, Incontinent Skin: denies: Rash Musculoskeletal: reports: Back pain. denies: Neck pain, Extremity pain Neurologic: denies: Focal weakness, Numbness, Headache PD PAST MEDICAL HISTORY - Past Medical History Past Medical History: Yes Cardiovascular: Congestive heart failure, Hypertension, High cholesterol Respiratory: Asthma, Shortness of breath, Sleep apnea, CPAP use Neuro: None Endocrine/Autoimmune: None GI: None, Crohn's disease, Other : None HEENT: None, Other Psych: Depression, Anxiety, Post traumatic stress disorder, Other Musculoskeletal: Osteoarthritis, Fibromyalgia, Fatigue, Chronic back pain Derm: Eczema Other Past Medical History: Hypertrophic cardiomyopathy - Past Surgical History Past Surgical History: Yes General: Appendectomy Cardiovascular: Other HEENT: Cataracts - Present Medications Home Medications: Ambulatory Orders Medication Instructions Recorded Confirmed Albuterol Sulfate [Proair Hfa 2 puffs INH Q6HR PRN 07/18/14 09/27/17 Inhaler] Meclizine HCl 25 mg PO Q6H PRN #30 tablet 01/06/15 09/27/17 Divalproex Sodium [Depakote] 500 mg PO BID 10/19/16 09/27/17 Aspirin [Aspirin EC] 81 mg PO DAILY 02/10/17 09/27/17 Budesonide/Formoterol Fumarate 2 puffs INH BID 02/10/17 09/27/17 [Symbicort 160-4.5 Mcg Inhaler] Duloxetine HCl 60 mg PO BID 02/10/17 09/27/17 Milnacipran HCl [Savella] 50 mg PO DAILY 02/10/17 09/27/17 Nitroglycerin 1 spray SL Q5M PRN 02/10/17 09/27/17 Prazosin HCl 2 mg PO DAILY 02/10/17 09/27/17 Prazosin HCl 4 mg PO QPM 02/10/17 09/27/17 Fluticasone [Flonase] 1 sprays JUAN FRANCISCO DAILY #5 bottle 02/11/17 09/27/17 Metoprolol Succinate [Toprol Xl] 100 mg PO BID #60 tab.er.24h 02/11/17 09/27/17 Aripiprazole [Abilify] 10 mg PO DAILY 08/27/17 09/27/17 Mesalamine [Lialda] 4.8 g PO DAILY 08/27/17 09/27/17 Dicyclomine HCl 20 mg PO BID PRN 09/27/17 09/27/17 Milnacipran HCl [Savella] 100 mg PO QPM 09/27/17 09/27/17 Omeprazole 40 mg PO BIDAC 09/27/17 09/27/17 Oxycodone HCl/Acetaminophen 1 tab PO BID PRN 09/27/17 09/27/17 [Percocet 10-325 mg Tablet] Pregabalin [Lyrica] 300 mg PO BID 09/27/17 09/27/17 Promethazine [Phenergan] 25 mg PO Q6H PRN 09/27/17 09/27/17 Tizanidine HCl 12 mg PO TID PRN 09/27/17 09/27/17 Verapamil ER [Calan SA] 180 mg PO DAILY 09/27/17 09/27/17 - Allergies Allergies/Adverse Reactions: Allergies Allergy/AdvReac Type Severity Reaction Status Date / Time squash Allergy Severe Anaphylaxis Verified 12/28/17 09:59 amitriptyline [Amitriptyline] Allergy Mild Anxiety Verified 12/28/17 09:59 codeine [Codeine] Allergy Mild Hives Verified 12/28/17 09:59 telmisartan [From Micardis] Allergy Mild Hives Verified 12/28/17 09:59 venom-honey bee Allergy Anaphylaxis Verified 12/28/17 09:59 [bee venom (honey bee)] lisinopril AdvReac Anxiety Verified 12/28/17 09:59 NSAIDS (Non-Steroidal AdvReac Emesis Verified 12/28/17 09:59 Anti-Inflamma tramadol HCl * [From Ultram] AdvReac Unknown Verified 12/28/17 09:59 Ghost peppers Allergy Anaphylaxis Uncoded 12/28/17 09:59 squash Allergy Anaphylaxis Uncoded 12/28/17 09:59 [email or web address] Allergy Anaphylaxis Uncoded 12/28/17 09:59 - Social History Does the pt smoke?: Yes Smoking Status: Current every day smoker Does the pt drink ETOH?: No Does the pt have substance abuse?: No - Immunizations Immunizations are current?: Yes Immunizations: TDAP >10years/unknown, Other immun not current - POLST Patient has POLST: No PD ED PE NORMAL - Vitals Vital signs reviewed: Yes (Mild hypertension initially.) - General General: Alert and oriented X 3, Other (Morbidly obese, deconditioned male.) - HEENT HEENT: Atraumatic, Moist mucous membranes - Neck Neck: No adenopathy, No JVD - Cardiac Cardiac: RRR - Respiratory Respiratory: No respiratory distress, Clear bilaterally - Abdomen Abdomen: Soft, Non tender - Back Back: No CVA TTP, No spinal TTP, Other (There is tenderness to palpation in the left paralumbar region, most exquisitely over the sacroiliac joint.) - Derm Derm: No rash - Extremities Extremities: No edema, No calf tenderness / cord, Other (Straight leg raise test is negative bilaterally. Distal light touch sensation is intact.) - Neuro Neuro: Alert and oriented X 3, No motor deficit, No sensory deficit Results - Vitals Vitals: Oxygen O2 Source Room air PD MEDICAL DECISION MAKING - ED course Complexity details: reviewed results, re-evaluated patient, considered differential, d/w patient ED course: The patient's presentation is most consistent with exacerbation of recurrent low back pain. His presentation does not suggest epidural abscess, cauda equina syndrome, spinal stenosis. Treatment in the emergency department included administration of ketorolac 60 mg IM and dexamethasone 10 mg orally. He reported slight improvement of his symptoms at the time of discharge. I discussed with him symptomatic treatment, outpatient follow-up, as well as potentially worrisome signs or symptoms that should prompt reevaluation in the emergency department. Departure - Departure Disposition: 01 Home, Self Care Clinical Impression: Low back pain Qualifiers: Chronicity: acute Back pain laterality: left Sciatica presence: without sciatica Qualified Code(s): M54.5 - Low back pain Condition: Stable Instructions: ED Sprain Strain Lumbar Follow-Up: WESTLEY TRIANA [Primary Care Provider] - Comments: Apply ice pack to your lower back intermittently for the next 3 or 4 days. You can use lidocaine topically if it provides comfort. You can use Tylenol or ibuprofen for anti-inflammatory effect. Follow-up with your primary physician as scheduled. Return to the emergency department if you develop increasing pain, numbness or weakness, or otherwise worsening symptoms. Discharge Date/Time: 12/28/17 12:40
== END 2017-12-28 12:40 | disposition home or self-care (01) ==
LOC: ED 09:45 → SUPCPDRO 09:45 → ED 12:40
DX: M54.5 Low back pain (principal); G89.29 Other chronic pain; I11.0 Hypertensive heart disease with heart failure; I50.9 Heart failure, unspecified; E78.00 Pure hypercholesterolemia, unspecified; F17.200 Nicotine dependence, unspecified, uncomplicated
CPT/HCPCS: 96372; 99283

== ENCOUNTER 2018-01-30 22:54 | Outpatient (CLI) | payer MEDICARE, MEDICAID | END 2018-01-30 22:55 | disposition short-term general hospital (02) | LOC: EMS 22:54 | PROVIDERS: ATTEND Surgery | DX: R07.9 Chest pain, unspecified (principal) | CPT/HCPCS: A0425; A0427 ==

== ENCOUNTER 2018-02-17 02:07 | Outpatient (CLI) | payer MEDICARE, MEDICAID | END 2018-02-17 02:08 | disposition short-term general hospital (02) | LOC: EMS 02:07 | PROVIDERS: ATTEND Surgery | DX: R06.02 Shortness of breath (principal); R07.89 Other chest pain | CPT/HCPCS: A0425; A0427; A0999 ==

== ENCOUNTER 2018-03-01 14:12 | Emergency (ER) | payer MEDICARE, MEDICAID ==
[2018-03-01 14:51] LABS: BASOPHILS % (AUTO) 0.5 %; EOSINOPHILS % (AUTO) 0.5 %; HGB - HEMOGLOBIN 14.5 g/dL (14.0-18.0); LYMPHOCYTES # (AUTO) 1.9 10^3/uL (1.5-3.5); MEAN CORPUSCULAR HEMOGLOBIN 29.9 pg (27.0-31.0); MEAN CORPUSCULAR VOLUME 87.8 fL (80.0-94.0); MEAN PLATELET VOLUME 8.6 fL (7.4-11.4); MONOCYTES # (AUTO) 0.5 10^3/uL (0.0-1.0); MONOCYTES % (AUTO) 6.8 %; NEUTROPHILS # (AUTO) 4.8 10^3/uL (1.5-6.6); NEUTROPHILS % (AUTO) 66.2 %; PLT - PLATELET COUNT 203 10^3/uL (130-450); RED BLOOD COUNT 4.85 10^6/uL (4.70-6.10); RED CELL DISTRIBUTION WIDTH 14.7 % (12.0-15.0); WHITE BLOOD COUNT 7.2 x10^3/uL (4.8-10.8)
--- NOTE | 2018-03-01 14:54 | XRAY Report ---
Reason: soa Procedure Date: 03/01/2018 Accession Number: [id number] / [id number] Procedure: XR - Chest 1 View X-Ray CPT Code: 14126 FULL RESULT: EXAM: CHEST RADIOGRAPHY EXAM DATE: 03/01/2018 02:38 PM. CLINICAL HISTORY: Shortness of air. COMPARISON: CHEST 1 VIEW 09/27/2017 1:32 PM. TECHNIQUE: 1 view. FINDINGS: Lungs/Pleura: No focal opacities evident. No pleural effusion. No pneumothorax. Mediastinum: Within exam limitations, the cardiomediastinal contour is normal. Other: Unchanged 3.5 cm rectangular medical supply technician projecting over the heart, presumably electronic loop recording device. IMPRESSION: No acute cardiopulmonary abnormality. RADIA
[2018-03-01 15:04] LABS: ALBUMIN 4.4 g/dL (3.2-5.5); ALBUMIN/GLOBULIN RATIO 1.4 (1.0-2.2); BILIRUBIN,TOTAL 0.6 mg/dL (0.2-1.0); CALCIUM 9.5 mg/dL (8.5-10.3); TOTAL PROTEIN 7.5 g/dL (6.7-8.2)
[2018-03-01] MEDS ORDERED: KETOROLAC 30 MG/ML VIAL IVP STA (15:09)
--- NOTE | 2018-03-01 15:14 | ED Physician Documentation ---
PD HPI DYSPNEA - Stated complaint Stated Complaint: DIFFICULTY BREATHING - Chief complaint Chief Complaint: Resp - History obtained from History obtained from: Patient - History of Present Illness Timing - onset: How many days ago Timing - onset during: Light activity, Exertion Timing - duration: Days (9) Timing - details: Gradual onset, Intermittant Pain level now: 0 Inciting event(s): Out of meds. No: Allergic rxn/anaphylaxis, Immobilization/travel Improved by: Lasix, Rest Worsened by: Exertion, Laying flat Associated symptoms: Chest pain / discomfort, Bilateral edema. No: Fever, Cough, Hemoptysis, Wheezing, Palpitations, Diaphoresis, Unilateral edema, Anxiety Similar symptoms before: Work up / diagnostics Recently seen: Not recently seen - Additional information Additional information: 47-year-old male with history of fibromyalgia, chronic back pain, CHF, cardiomyopathy, hypertension, asthma here with complaint of shortness of breath the past 9 days with intermittent chest discomfort. Patient stated was at [facility] February 20 and was workup for the shortness of breath and given Lasix bolus. Patient also claimed he ran out of his Lasix the past 1-1/2 weeks. He restarted the Lasix today. He only had 2 urine outputs and he called his primary doctor who told him to go to the emergency room. He also informed me that at the end of January or early February he was at [facility] and admitted for chest pain. He had a stress test, echocardiogram and an angiogram no stent was put in. Patient stated 1 of his arteries improved Or stop collapsing when nitro was injected. So he was discharged on Imdur which gives him a headache. He says currently has a headache and requesting for Toradol. It is 5 Review of Systems Ten Systems: 10 systems reviewed and negative Constitutional: denies: Fever, Chills, Myalgias Cardiac: reports: Chest pain / pressure. denies: Palpitations Respiratory: reports: Dyspnea. denies: Cough GI: denies: Abdominal Pain, Abdominal Swelling Musculoskeletal: reports: Extremity swelling. denies: Back pain, Extremity pain, Pain with weight bearing Neurologic: denies: Generalized weakness PD PAST MEDICAL HISTORY - Past Medical History Cardiovascular: Congestive heart failure, Hypertension, High cholesterol, Other Respiratory: Asthma, Shortness of breath, Sleep apnea, CPAP use Neuro: None Endocrine/Autoimmune: None GI: None, Crohn's disease, Other : None HEENT: None, Other Psych: Depression, Anxiety, Post traumatic stress disorder, Other Musculoskeletal: Osteoarthritis, Fibromyalgia, Fatigue, Chronic back pain Derm: Eczema Other Past Medical History: Hpertrophic cardiomyopathy. cateracts - Past Surgical History Past Surgical History: Yes General: Appendectomy Cardiovascular: Other HEENT: Cataracts - Present Medications Home Medications: Ambulatory Orders Medication Instructions Recorded Confirmed RX: Albuterol Sulfate [Proair Hfa 2 puffs INH Q6HR PRN 07/18/14 09/27/17 Inhaler] RX: Meclizine HCl 25 mg PO Q6H PRN #30 tablet 01/06/15 09/27/17 RX: Divalproex Sodium [Depakote] 500 mg PO BID 10/19/16 09/27/17 RX: Aspirin [Aspirin EC] 81 mg PO DAILY 02/10/17 09/27/17 RX: Budesonide/Formoterol Fumarate 2 puffs INH BID 02/10/17 09/27/17 [Symbicort 160-4.5 Mcg Inhaler] RX: Duloxetine HCl 60 mg PO BID 02/10/17 09/27/17 RX: Milnacipran HCl [Savella] 50 mg PO DAILY 02/10/17 09/27/17 RX: Nitroglycerin 1 spray SL Q5M PRN 02/10/17 09/27/17 RX: Prazosin HCl 2 mg PO DAILY 02/10/17 09/27/17 RX: Prazosin HCl 4 mg PO QPM 02/10/17 09/27/17 RX: Fluticasone [Flonase] 1 sprays JUAN FRANCISCO DAILY #5 bottle 02/11/17 09/27/17 RX: Metoprolol Succinate [Toprol 100 mg PO BID #60 tab.er.24h 02/11/17 09/27/17 Xl] RX: Aripiprazole [Abilify] 10 mg PO DAILY 08/27/17 09/27/17 RX: Mesalamine [Lialda] 4.8 g PO DAILY 08/27/17 09/27/17 RX: Dicyclomine HCl 20 mg PO BID PRN 09/27/17 09/27/17 RX: Milnacipran HCl [Savella] 100 mg PO QPM 09/27/17 09/27/17 RX: Omeprazole 40 mg PO BIDAC 09/27/17 09/27/17 RX: Oxycodone HCl/Acetaminophen 1 tab PO BID PRN 09/27/17 09/27/17 [Percocet 10-325 mg Tablet] RX: Pregabalin [Lyrica] 300 mg PO BID 09/27/17 09/27/17 RX: Promethazine [Phenergan] 25 mg PO Q6H PRN 09/27/17 09/27/17 RX: Tizanidine HCl 12 mg PO TID PRN 09/27/17 09/27/17 RX: Verapamil ER [Calan SA] 180 mg PO DAILY 09/27/17 09/27/17 - Allergies Allergies/Adverse Reactions: Allergies Allergy/AdvReac Type Severity Reaction Status Date / Time squash Allergy Severe Anaphylaxis Verified 03/01/18 14:21 amitriptyline [Amitriptyline] Allergy Mild Anxiety Verified 03/01/18 14:21 codeine [Codeine] Allergy Mild Hives Verified 03/01/18 14:21 telmisartan [From Micardis] Allergy Mild Hives Verified 03/01/18 14:21 venom-honey bee Allergy Anaphylaxis Verified 03/01/18 14:21 [bee venom (honey bee)] lisinopril AdvReac Anxiety Verified 03/01/18 14:21 NSAIDS (Non-Steroidal AdvReac Emesis Verified 03/01/18 14:21 Anti-Inflamma tramadol HCl * [From Ultram] AdvReac Unknown Verified 03/01/18 14:21 Ghost peppers Allergy Anaphylaxis Uncoded 03/01/18 14:21 squash Allergy Anaphylaxis Uncoded 03/01/18 14:21 [email or web address] Allergy Anaphylaxis Uncoded 12/28/17 09:59 - Social History Does the pt smoke?: Yes Smoking Status: Current every day smoker Does the pt drink ETOH?: Yes Does the pt have substance abuse?: No - Immunizations Immunizations are current?: No Immunizations: TDAP current <10years - POLST Patient has POLST: No PD ED PE NORMAL - Vitals Vital signs reviewed: Yes - General General: Alert and oriented X 3, No acute distress, Well developed/nourished - HEENT HEENT: Moist mucous membranes, Pharynx benign - Neck Neck: Supple, no meningeal sign - Cardiac Cardiac: RRR, No murmur - Respiratory Respiratory: No respiratory distress, Clear bilaterally - Abdomen Abdomen: Normal bowel sounds, Soft, Non tender, Non distended - Back Back: No CVA TTP - Derm Derm: Normal color, Warm and dry - Extremities Extremities: No deformity - Neuro Neuro: Alert and oriented X 3 - Psych Psych: Normal mood, Normal affect Results - Vitals Vitals: Vital Signs - 24 hr 03/01/18 03/01/18 03/01/18 14:14 16:00 17:00 Temperature 36.2 C L Heart Rate 88 77 73 Respiratory 18 19 Rate Blood Pressure 137/94 H 123/91 H 106/96 H O2 Saturation 99 97 Oxygen O2 Source Room air - Labs Labs: Laboratory Tests 03/01/18 03/01/18 03/01/18 14:47 14:47 14:47 WBC 7.2 RBC 4.85 Hgb 14.5 Hct 42.6 MCV 87.8 MCH 29.9 MCHC 34.0 RDW 14.7 Plt Count 203 MPV 8.6 Neut # (Auto) 4.8 Lymph # (Auto) 1.9 [place] # (Auto) 0.5 Eos # (Auto) 0.0 Baso # (Auto) 0.0 Absolute Nucleated RBC 0.01 Nucleated RBC % 0.1 Sodium 141 Potassium 3.5 Chloride 103 Carbon Dioxide 27 Anion Gap 11.0 BUN 9 Creatinine 1.0 Estimated GFR (MDRD) 81 L Glucose 126 H Calcium 9.5 Total Bilirubin 0.6 AST 23 ALT 33 Alkaline Phosphatase 62 Troponin I < 0.04 B-Natriuretic Peptide Total Protein 7.5 Albumin 4.4 Globulin 3.1 Albumin/Globulin Ratio 1.4 Lipase 40 03/01/18 14:47 WBC RBC Hgb Hct MCV MCH MCHC RDW Plt Count MPV Neut # (Auto) Lymph # (Auto) [place] # (Auto) Eos # (Auto) Baso # (Auto) Absolute Nucleated RBC Nucleated RBC % Sodium Potassium Chloride Carbon Dioxide Anion Gap BUN Creatinine Estimated GFR (MDRD) Glucose Calcium Total Bilirubin AST ALT Alkaline Phosphatase Troponin I B-Natriuretic Peptide 72 Total Protein Albumin Globulin Albumin/Globulin Ratio Lipase PD MEDICAL DECISION MAKING - ED course Complexity details: reviewed results, re-evaluated patient, considered diffe rential (CHF, cardiomyopathy, ACS, PE, pneumonia), d/w patient ED course: Patient inform of test results. Patient thinks his cardiomyopathy Makes him short of breath when he lays downand would like to have another Lasix 40 IV so he can urinate moreAnd sleep better tonight. He does not want any CT chest to be done tonight. He has an appointment with his geological technical officer the first week of March. He is on Lasix 40 mg p.o. daily. He wants to go home.Medical records received from [facility]. February [address] chest with did not show any PE. And at [facility] an echocardiogram was done his EF fraction is 75% Departure - Departure Disposition: Home, Self Care Clinical Impression: Chronic shortness of breath Cardiomyopathy Qualifiers: Cardiomyopathy type: unspecified Qualified Code(s): I42.9 - Cardiomyopathy, unspecified Condition: Stable Instructions: ED Dyspnea Shortness of Breath Comments: Continue your Lasix as prescribed by your primary doctor. Call your geological technical officer and get an earlier appointment if possible if not make sure you keep your appointment In March. Call your primary doctor this week for reevaluation. If worse return to the emergency room. Discharge Date/Time: 03/01/18 17:10
[2018-03-01] MEDS ORDERED: FUROSEMIDE 40 MG/4 ML VIAL IVP STA (16:49)
[2018-03-01 17:10] VITALS: BP 106/96
== END 2018-03-01 17:10 | disposition home or self-care (01) ==
LOC: ED 14:12
DX: R06.02 Shortness of breath (principal); I42.9 Cardiomyopathy, unspecified; R94.31 Abnormal electrocardiogram [ECG] [EKG]; I11.0 Hypertensive heart disease with heart failure; I50.9 Heart failure, unspecified; E78.00 Pure hypercholesterolemia, unspecified; G89.29 Other chronic pain; M79.7 Fibromyalgia
CPT/HCPCS: 36415; 71045; 80053; 83690; 83880; 84484; 85025; 93005; 96374; 96375; 99284

== ENCOUNTER 2018-03-09 08:50 | Outpatient (CLI) | payer MEDICARE, MEDICAID | END 2018-03-09 08:51 | disposition critical access hospital (66) | LOC: EMS 08:50 | PROVIDERS: ATTEND Surgery | DX: R09.89 Other specified symptoms and signs involving the circulatory and respiratory systems (principal) | CPT/HCPCS: A0425; A0427 ==

== ENCOUNTER 2018-03-09 08:52 | Emergency (ER) | payer MEDICARE, MEDICAID ==
[2018-03-09] MEDS ORDERED: predniSONE 20 MG TABLET PO STA (08:58)
[2018-03-09] MEDS ORDERED: KETOROLAC 30 MG/ML VIAL IVP STA (08:59)
--- NOTE | 2018-03-09 09:05 | ED Physician Documentation ---
History of Present Illness - Stated complaint Stated Complaint: ALLERGIC REACTION - Chief complaint Chief Complaint: Resp - History obtained from History obtained from: Patient, EMS - History of Present Illness Timing: Today Pain level max: 0 Pain level now: 0 - Additonal information Additional information: 47-year-old male states that he is allergic to pumpkin. Decided to eat a pumpkin spice caramel dip and felt like his throat was tightening. Given benadryl by EMS. States no dyspnea or wheezing. Has had allergic reactions in the past. Nothing is making this 1 better or worse. Review of Systems Constitutional: denies: Fever, Chills GI: denies: Vomiting, Diarrhea Skin: denies: Rash Musculoskeletal: denies: Neck pain, Back pain Neurologic: reports: Headache (states 06/12 headache). denies: Focal weakness, Numbness PD PAST MEDICAL HISTORY - Past Medical History Cardiovascular: Congestive heart failure, Hypertension, High cholesterol, Other Respiratory: Asthma, Shortness of breath, Sleep apnea, CPAP use Neuro: None Endocrine/Autoimmune: None GI: None, Crohn's disease, Other : None HEENT: None, Other Psych: Depression, Anxiety, Post traumatic stress disorder, Other Musculoskeletal: Osteoarthritis, Fibromyalgia, Fatigue, Chronic back pain Derm: Eczema - Past Surgical History Past Surgical History: Yes General: Appendectomy Cardiovascular: Other HEENT: Cataracts - Present Medications Home Medications: Ambulatory Orders Medication Instructions Recorded Confirmed Albuterol Sulfate [Proair Hfa 2 puffs INH Q6HR PRN 07/18/14 03/09/18 Inhaler] Meclizine HCl 25 mg PO Q6H PRN #30 tablet 01/06/15 03/09/18 Divalproex Sodium [Depakote] 500 mg PO BID 10/19/16 03/09/18 Aspirin [Aspirin EC] 81 mg PO DAILY 02/10/17 03/09/18 Budesonide/Formoterol Fumarate 2 puffs INH BID 02/10/17 03/09/18 [Symbicort 160-4.5 Mcg Inhaler] Duloxetine HCl 60 mg PO BID 02/10/17 03/09/18 Milnacipran HCl [Savella] 50 mg PO DAILY 02/10/17 03/09/18 Nitroglycerin 1 spray SL Q5M PRN 02/10/17 03/09/18 Prazosin HCl 2 mg PO DAILY 02/10/17 03/09/18 Prazosin HCl 4 mg PO QPM 02/10/17 03/09/18 Fluticasone [Flonase] 1 sprays JUAN FRANCISCO DAILY #5 bottle 02/11/17 03/09/18 Metoprolol Succinate [Toprol Xl] 100 mg PO BID #60 tab.er.24h 02/11/17 03/09/18 Aripiprazole [Abilify] 10 mg PO DAILY 08/27/17 03/09/18 Mesalamine [Lialda] 4.8 g PO DAILY 08/27/17 03/09/18 Dicyclomine HCl 20 mg PO BID PRN 09/27/17 03/09/18 Milnacipran HCl [Savella] 100 mg PO QPM 09/27/17 03/09/18 Omeprazole 40 mg PO BIDAC 09/27/17 03/09/18 Oxycodone HCl/Acetaminophen 1 tab PO BID PRN 09/27/17 03/09/18 [Percocet 10-325 mg Tablet] Pregabalin [Lyrica] 300 mg PO BID 09/27/17 03/09/18 Promethazine [Phenergan] 25 mg PO Q6H PRN 09/27/17 03/09/18 Tizanidine HCl 12 mg PO TID PRN 09/27/17 03/09/18 Verapamil ER [Calan SA] 180 mg PO DAILY 09/27/17 03/09/18 predniSONE [Prednisone] 40 mg PO DAILY #6 tablet 03/09/18 - Allergies Allergies/Adverse Reactions: Allergies Allergy/AdvReac Type Severity Reaction Status Date / Time squash Allergy Severe Anaphylaxis Verified 03/09/18 08:58 amitriptyline [Amitriptyline] Allergy Mild Anxiety Verified 03/09/18 08:58 codeine [Codeine] Allergy Mild Hives Verified 03/09/18 08:58 telmisartan [From Micardis] Allergy Mild Hives Verified 03/09/18 08:58 venom-honey bee Allergy Anaphylaxis Verified 03/09/18 08:58 [bee venom (honey bee)] lisinopril AdvReac Anxiety Verified 03/09/18 08:58 NSAIDS (Non-Steroidal AdvReac Emesis Verified 03/09/18 08:58 Anti-Inflamma tramadol HCl * [From Ultram] AdvReac Unknown Verified 03/09/18 08:58 Ghost peppers Allergy Anaphylaxis Uncoded 03/01/18 14:21 squash Allergy Anaphylaxis Uncoded 03/01/18 14:21 [email or web address] Allergy Anaphylaxis Uncoded 12/28/17 09:59 - Social History Does the pt smoke?: Yes Smoking Status: Current every day smoker Does the pt drink ETOH?: Yes Does the pt have substance abuse?: No - Immunizations Immunizations are current?: No Immunizations: TDAP current <10years - POLST Patient has POLST: No PD ED PE NORMAL - Vitals Vital signs reviewed: Yes - General General: Alert and oriented X 3, No acute distress - HEENT HEENT: PERRL, Moist mucous membranes, Pharynx benign, Other (No edema. No wheezing or stridor) - Neck Neck: Supple, no meningeal sign - Cardiac Cardiac: RRR, Strong equal pulses - Respiratory Respiratory: No respiratory distress, Clear bilaterally - Abdomen Abdomen: Soft, Non tender, Non distended - Derm Derm: Warm and dry, No rash - Neuro Neuro: Alert and oriented X 3 - Psych Psych: Normal mood, Normal affect Results - Vitals Vitals: Vital Signs - 24 hr 03/09/18 03/09/18 08:56 09:49 Temperature 36.2 C L 36 C L Heart Rate 81 83 Respiratory 18 20 Rate Blood Pressure 146/99 H 156/96 H O2 Saturation 98 98 Oxygen O2 Source Room air PD MEDICAL DECISION MAKING - ED course Complexity details: re-evaluated patient (asymptomatic), considered differential, d/w patient ED course: 47-year-old male with an apparent allergic reaction today. No urticaria. No wheezing. No stridor. Given a dose of prednisone here. Already received Benadryl. No further reaction in the emergency department. We will have him follow-up with his doctor. Patient counseled regarding signs and symptoms for which I believe and urgent re-evaluation would be necessary. Patient with good understanding of and agreement to plan and is comfortable going home at this time This document was made in part using voice recognition software. While efforts are made to proofread this document, sound alike and grammatical errors may occur. Departure - Departure Disposition: 01 Home, Self Care Clinical Impression: Allergic reaction Qualifiers: Encounter type: initial encounter Qualified Code(s): T78.40XA - Allergy, unspecified, initial encounter Condition: Good Instructions: ED Allergic React Food Follow-Up: your,doctor as needed [Other] Prescriptions: predniSONE [Prednisone] 40 mg PO DAILY #6 tablet Comments: Stay on the prednisone for the next few days to help prevent a recurrence. Do not eat the dip again. Return if you worsen Discharge Date/Time: 03/09/18 09:53
[2018-03-09 09:52] VITALS: BP 156/96
== END 2018-03-09 09:53 | disposition home or self-care (01) ==
LOC: EDUNIT# → ED 08:52
DX: T78.1XXA Other adverse food reactions, not elsewhere classified, initial encounter (principal); R51 Headache; X58.XXXA Exposure to other specified factors, initial encounter; E78.00 Pure hypercholesterolemia, unspecified; I11.0 Hypertensive heart disease with heart failure; I50.9 Heart failure, unspecified; F17.200 Nicotine dependence, unspecified, uncomplicated; Z79.82 Long term (current) use of aspirin
CPT/HCPCS: 96374; 99283; J7512

== ENCOUNTER 2018-06-14 01:22 | Outpatient (CLI) | payer MEDICARE, MEDICAID | END 2018-06-14 01:23 | disposition critical access hospital (66) | LOC: EMS 01:22 | PROVIDERS: ATTEND Surgery | DX: M54.5 Low back pain (principal); M25.552 Pain in left hip; M25.551 Pain in right hip; M25.562 Pain in left knee; M25.561 Pain in right knee | CPT/HCPCS: A0425; A0429 ==

== ENCOUNTER 2018-06-14 01:38 | Emergency (ER) | payer MEDICARE, MEDICAID ==
--- NOTE | 2018-06-14 01:51 | ED Physician Documentation ---
PD HPI BACK PAIN - Stated complaint Stated Complaint: LOW BACK, KNEE AND HIP PAIN - Chief complaint Chief Complaint: General - History obtained from History obtained from: Patient, EMS - History of Present Illness Timing - onset: How many hours ago (1.5) Timing - duration: Hours Timing - details: Abrupt onset Pain level max: 10 Pain level now: 10 Location: Lower, Right, Left Quality: Pain Associated symptoms: No: Fever, Weakness, Numbness, Incontinent of urine, Unable to urinate, Hematuria, Incontinent of stool Improves with: Rest Worsened by: Movement Similar symptoms before: Diagnosis (chronic back pain (but never this bad, per patient)) Recently seen: Emergency Dept - Additional information Additional information: c/o bilateral low back pain radiating down both legs to hips and knees. He says this started 90 minutes ago and was so bad he couldnt walk. Per medic report, patient ambulated to stretcher. Over 30 ED visits to various EDs and hospitals over past 12 months, with 8 ED visits to ED since March including 1 week ago for back pain. Review of Systems Constitutional: reports: Reviewed and negative : denies: Incontinent Musculoskeletal: reports: Back pain. denies: Neck pain Neurologic: denies: Generalized weakness, Focal weakness, Numbness PD PAST MEDICAL HISTORY - Past Medical History Past Medical History: Yes Cardiovascular: Congestive heart failure, Hypertension, High cholesterol, Other Respiratory: Asthma, Shortness of breath, Sleep apnea, CPAP use Neuro: None Endocrine/Autoimmune: None GI: Crohn's disease, Other : None HEENT: Other Psych: Depression, Anxiety, Post traumatic stress disorder, Other Musculoskeletal: Osteoarthritis, Fibromyalgia, Fatigue, Chronic back pain Derm: Eczema - Past Surgical History Past Surgical History: Yes General: Appendectomy Cardiovascular: Other HEENT: Cataracts - Present Medications Home Medications: Ambulatory Orders Medication Instructions Recorded Confirmed Albuterol Sulfate [Proair Hfa 2 puffs INH Q6HR PRN 07/18/14 03/09/18 Inhaler] Meclizine HCl 25 mg PO Q6H PRN #30 tablet 01/06/15 03/09/18 Divalproex Sodium [Depakote] 500 mg PO BID 10/19/16 03/09/18 Aspirin [Aspirin EC] 81 mg PO DAILY 02/10/17 03/09/18 Budesonide/Formoterol Fumarate 2 puffs INH BID 02/10/17 03/09/18 [Symbicort 160-4.5 Mcg Inhaler] Duloxetine HCl 60 mg PO BID 02/10/17 03/09/18 Milnacipran HCl [Savella] 50 mg PO DAILY 02/10/17 03/09/18 Nitroglycerin 1 spray SL Q5M PRN 02/10/17 03/09/18 Prazosin HCl 2 mg PO DAILY 02/10/17 03/09/18 Prazosin HCl 4 mg PO QPM 02/10/17 03/09/18 Fluticasone [Flonase] 1 sprays JUAN FRANCISCO DAILY #5 bottle 02/11/17 03/09/18 Metoprolol Succinate [Toprol Xl] 100 mg PO BID #60 tab.er.24h 02/11/17 03/09/18 Aripiprazole [Abilify] 10 mg PO DAILY 08/27/17 03/09/18 Mesalamine [Lialda] 4.8 g PO DAILY 08/27/17 03/09/18 Dicyclomine HCl 20 mg PO BID PRN 09/27/17 03/09/18 Milnacipran HCl [Savella] 100 mg PO QPM 09/27/17 03/09/18 Omeprazole 40 mg PO BIDAC 09/27/17 03/09/18 Oxycodone HCl/Acetaminophen 1 tab PO BID PRN 09/27/17 03/09/18 [Percocet 10-325 mg Tablet] Pregabalin [Lyrica] 300 mg PO BID 09/27/17 03/09/18 Promethazine [Phenergan] 25 mg PO Q6H PRN 09/27/17 03/09/18 Tizanidine HCl 12 mg PO TID PRN 09/27/17 03/09/18 Verapamil ER [Calan SA] 180 mg PO DAILY 09/27/17 03/09/18 predniSONE [Prednisone] 40 mg PO DAILY #6 tablet 03/09/18 - Allergies Allergies/Adverse Reactions: Allergies Allergy/AdvReac Type Severity Reaction Status Date / Time squash Allergy Severe Anaphylaxis Verified 06/14/18 01:45 amitriptyline [Amitriptyline] Allergy Mild Anxiety Verified 06/14/18 01:45 codeine [Codeine] Allergy Mild Hives Verified 06/14/18 01:45 telmisartan [From Micardis] Allergy Mild Hives Verified 06/14/18 01:45 venom-honey bee Allergy Anaphylaxis Verified 06/14/18 01:45 [bee venom (honey bee)] lisinopril AdvReac Anxiety Verified 06/14/18 01:45 NSAIDS (Non-Steroidal AdvReac Emesis Verified 06/14/18 01:45 Anti-Inflamma tramadol HCl * [From Ultram] AdvReac Unknown Verified 06/14/18 01:45 Ghost peppers Allergy Anaphylaxis Uncoded 06/14/18 01:45 squash Allergy Anaphylaxis Uncoded 06/14/18 01:45 [email or web address] Allergy Anaphylaxis Uncoded 06/14/18 01:45 - Social History Does the pt smoke?: Yes Smoking Status: Current every day smoker Does the pt drink ETOH?: Yes Does the pt have substance abuse?: No - Immunizations Immunizations are current?: No Immunizations: TDAP current <10years - POLST Patient has POLST: No PD ED PE NORMAL - Vitals Vital signs reviewed: Yes - General General: Alert and oriented X 3, No acute distress, Well developed/nourished - HEENT HEENT: PERRL, EOMI - Cardiac Cardiac: RRR, No murmur - Respiratory Respiratory: No respiratory distress, Clear bilaterally - Abdomen Abdomen: Soft, Non tender, Non distended, Other (morbidly obese) - Back Back: No spinal TTP - Derm Derm: Normal color, Warm and dry - Extremities Extremities: No tenderness to palpate, No edema - Neuro Neuro: Alert and oriented X 3, 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 He was drowsy on presentation but more awake on reevaluation. He says he has no relief from these medications. Given 5mg IM Valium and then discharged. He was brought to waiting room in wheelchair, then I subsequently personally witnessed him get out of wheelchair and ambulate outside, back in to waiting room, and then back out again, all without any apparent distress or difficulty. During this visit, I explained to him why I did not feel narcotic medications would be appropriate at this time, considering: exceptionally frequent ED visits for pain-related complaint, h/o narcotic overdose (oxycodone, per [facility] records), utilizing multiple ERs for his emergent pain, lack of any emergent improvement with any modality that is not narcotic (per patients report), stated allergies to several non-narcotic analgesics. Departure - Departure Disposition: Home, Self Care Clinical Impression: Low back pain Qualifiers: Chronicity: chronic Back pain laterality: bilateral Sciatica presence: with sciatica Sciatica laterality: bilateral sciatica Qualified Code(s): M54.42 - L umbago with sciatica, left side Condition: Good Instructions: ED Sciatica Follow-Up: Trenton Garrido [place] [Primary Care Provider] - (Call today to arrange for next available appointment) Discharge Date/Time: 06/14/18 04:40
[2018-06-14] MEDS ORDERED: KETOROLAC 60 MG/2 ML VIAL IM STA (02:14)
[2018-06-14] MEDS ORDERED: DEXAMETHASONE 10 MG/ML VIAL PO STA (02:14)
[2018-06-14] MEDS ORDERED: CHERRY SYRUP 10 ML UDC PO ONE (02:14)
[2018-06-14] MEDS ORDERED: diazePAM INJ 5 MG/ML SYRINGE IM STA (04:15)
[2018-06-14 04:42] VITALS: BP 105/69
== END 2018-06-14 04:40 | disposition home or self-care (01) ==
LOC: EDUNIT# → ED 01:38
DX: G89.29 Other chronic pain (principal); M54.42 Lumbago with sciatica, left side; I10 Essential (primary) hypertension; F17.200 Nicotine dependence, unspecified, uncomplicated
CPT/HCPCS: 96372; 99283; A9270